=== PATIENT | male | born 1970 | race Caucasian/White ===

== ENCOUNTER 2022-06-11 08:39 | Inpatient (IN) ==
[2022-06-11] MEDS ORDERED: 0.9 % SODIUM CHLORIDE 2,000 ML IV ONE (08:50)
[2022-06-11] MEDS ORDERED: PIPERACILLIN SODIUM/TAZOBACTAM 3.375 GM in DEXTROSE 5% IN WATER 50 ML IV SCH (09:00)
[2022-06-11] MEDS ORDERED: VANCOMYCIN 2,000 MG in 0.9 % SODIUM CHLORIDE 500 ML IV SCH (09:00)
[2022-06-11 09:20] LABS: POC Calcium, Ionized 0.96 (1.16-1.32); POC Creatinine 1.1 (0.6-1.2); POC Potassium 3.7 (3.3-5.1)
[2022-06-11 09:54] LABS: Basophils % (Auto) 0.3 % (0.0-2.0); Eosinophils # (Auto) 0.01 K/mcL (0.00-0.70); Eosinophils % (Auto) 0 % (0.0-7.0); Hematocrit 40.7 % (40.1-51.0); Hemoglobin 13.8 g/dL (13.7-17.5); Lymphocytes # (Auto) 2.37 K/mcL (1.50-4.80); Lymphocytes % (Auto) 7.5 % (15.5-49.0); Mean Cell Volume 92.9 fL (80.0-100.0); Mean Corpuscular HGB Conc 33.9 g/dL (31.0-36.0); Mean Platelet Volume 9.5 fL (7.4-10.4); Monocytes # (Auto) 2.38 K/mcL (0.10-0.90); Monocytes % (Auto) 7.5 % (1.0-12.0); Neutrophils % (Auto) 81.7 % (38.0-78.0); Platelet Count 390 K/mcL (140-440); RBC 4.38 M/mcL (4.63-6.08); Red Cell Distribution Width 12.1 % (11.5-14.5); WBC 31.5 K/mcL (4.5-11.0)
[2022-06-11 10:04] LABS: Erythrocyte Sedimentation Rate > 120 mm/hr (0-20)
--- NOTE | 2022-06-11 10:05 | Emergency Department Note ---
HPI General Chief complaint: Skin/Abscess/Rash Stated complaint: rt lower leg pain Time Seen by Provider: 06/11/22 08:43 Source: patient Mode of arrival: ambulatory Limitations: no limitations History of Present Illness HPI Narrative: Narrative: 51-year-old male presents the emergency department complaining of right lower leg swelling and pain. Says also red. Says he feels fevers. Says been going on for about 2 or 3 days continuing to get worse and worse. He does not take any medications. Says he does not have any medical problems. Said that the pain is about a 6 out of 10 all to the right lower extremity. He has never had any history of blood clots. He says it is very warm to touch and painful to touch said he was working outside and could have got a wound to but does not know of any true wounds within the skin to cause this. Related Data Home Medications Medication Instructions Recorded Confirmed No Known Home Meds 06/11/22 06/11/22 Allergies Allergy/AdvReac Type Severity Reaction Status Date / Time No Known Drug Allergies Allergy Verified 06/11/22 08:44 Review of Systems ROS ROS Narrative: Narrative: All systems ED: reviewed and negative except as stated. PFSH Narrative Patient History Narrative: Narrative: Medical/Surgical/Family History All Active Problems (Updated 06/11/22 @ 10:05 by Jarred Oneal DO) Cellulitis (Acute) Sepsis (Acute) Social History Smoking Status: Never smoker Exam Narrative Narrative: Narrative: Vital signs noted General: Awake. Alert. No distress. Skin: Warm. Dry. No rash. HEENT: NCAT. PERRL. EOMI. No conjunctivitis. No nystagmus. No pharyngitis. Membranes moist. Neck: No PTP. Good ROM. No meningeal signs. No stridor. No thyromegaly. No JVD. Cardiovascular: RRR. No murmur. No rubs. No gallops. Respiratory: No respiratory distress. Breath sounds equal. Lungs clear. Gastrointestinal: Abdomen soft. No tenderness. No distention. Normal bowel sounds. No palpable organomegaly or masses. Back: No deformity. No CVAT. Musculoskeletal: The right lower leg is very erythematous swollen and edematous. There is no active wounds or pus draining does have small pustules seen be leaking clear fluids. He does have 2+ bilateral pedal pulses. Generalized pain throughout touching the entire right lower leg. This is all just below the knee. Otherwise musculoskeletal exam shows no tenderness. No swelling. No erythema. No edema. Good peripheral pulses x 4 Lymphatic: No palpable adenopathy. Neurological: No focal neurological deficits observed. CN 2-12 are intact. Good FTN. No pronator drift. General Limitations: no limitations Course Vital Signs Vital signs: Vital Signs Temperature 96.7 F L 06/11/22 08:42 Pulse Rate 130 H 06/11/22 08:42 Respiratory Rate 26 H 06/11/22 08:42 Blood Pressure 162/92 06/11/22 08:42 Pulse Oximetry (%) 97 06/11/22 08:42 Oxygen Delivery Method 06/11/22 08:42 Temperature 96.7 F L 06/11/22 08:42 Pulse Rate 97 H 06/11/22 10:20 Respiratory Rate 14 06/11/22 10:20 Blood Pressure 123/82 06/11/22 10:16 Pulse Oximetry (%) 100 06/11/22 10:20 Oxygen Delivery Method 06/11/22 08:42 MDM MDM Narrative Medical decision making narrative: Narrative: Patient has obvious cellulitis of the right lower leg. No signs of probably osteomyelitis as he has no history of diabetes he is otherwise healthy. Neck is just a severe cellulitis in the right lower extremity we will go ahead and treat him with broad-spectrum antibiotics including Zosyn as well as vancomycin to cover MRSA coverage. Patient will also have basic labs and have a sepsis work- up as patient does meet criteria for sepsis. He did receive 2 L of IV fluids based on ideal body weight he should have received 2.5 L but I went ahead and gave him a little less because I am worried due to his body habitus about fluid overload. So I do started with 2 L and will reevaluate. His lactate initially was mildly elevated at 2.2. His CMP is fairly normal except for a sodium of 128. He did have an elevated white blood cell count of 31,500. I did get blood cultures. Patient does meet criteria for severe sepsis. I do not think patient needs a CT at this time as I have very low suspicion for osteomyelitis do not think he needs ultrasounds again I have very low suspicion for DVT as I think this is all secondary to cellulitis due to him having tachycardia off-and-on fevers as well as the elevated white blood cell count. I am patient does need to be admitted for continued wound care as well as IV antibiotics. I spoke with the hospitalist Dr. Mathias who has agreed to admit the patient. Patient is admitted in fair condition. His vital signs have gotten better there is no signs of septic shock EKG done at 0903 interpreted by myself shows sinus tachycardia rate of 115, [place] interval 147, QRS 95, QTc 43. No acute ST changes no acute T wave changes no other signs of ischemia. No signs of hypertrophy, heart strain, heart block. No WPW/Brugada/HOCM. Impression normal sinus EKG with no ischemia Lab Data Result diagrams: 06/11/22 09:02 06/11/22 09:02 Labs: Lab Results 06/11/22 06/11/22 06/11/22 Range/Units 09:02 09:02 09:17 WBC 31.5 H* (4.5-11.0) K/mcL RBC 4.38 L (4.63-6.08) M/mcL Hgb 13.8 (13.7-17.5) g/dL Hct 40.7 (40.1-51.0) % POC Hct 44.0 (41-55) MCV 92.9 (80.0-100.0) fL MCH 31.5 (26.0-34.0) pg MCHC 33.9 (31.0-36.0) g/dL RDW 12.1 (11.5-14.5) % Plt Count 390 (140-440) K/mcL MPV 9.5 (7.4-10.4) fL Immature Gran % (Auto) 3.0 H (0.0-0.5) % Neut % (Auto) 81.7 H (38.0-78.0) % Lymph % (Auto) 7.5 L (15.5-49.0) % [place] % (Auto) 7.5 (1.0-12.0) % Eos % (Auto) 0 (0.0-7.0) % Baso % (Auto) 0.3 (0.0-2.0) % Lymph # (Auto) 2.37 (1.50-4.80) K/mcL [place] # (Auto) 2.38 H (0.10-0.90) K/mcL Eos # (Auto) 0.01 (0.00-0.70) K/mcL Baso # (Auto) 0.10 (0.00-0.30) K/mcL Immature Gran # 0.95 H (0.00-0.05) K/mcl Absolute Neutrophils 26.68 H (1.80-8.00) K/mcL ESR > 120 H (0-20) mm/hr POC VBG pH (7.32-7.42) POC VBG pCO2 at Temp (41-51) POC VBG pO2 (25-40) POC VBG HCO3 (24-28) POC VBG Total CO2 (25-29) POC Venous O2 Sat (40-70) POC VBG Base Excess (-2-2) VBG Lactic Acid (0.5-2) POC Sodium 128 L (133-145) Sodium 127 L (133-145) mmol/L POC Potassium 3.7 (3.3-5.1) Potassium 3.7 (3.3-5.1) mmol/L POC Chloride 95 L (96-108) Chloride 91 L (96-108) mmol/L Carbon Dioxide 20 L (22-30) mmol/L POC Total CO2 23.0 (22-30) Anion Gap 16.0 (8.0-16.0) POC BUN 13 (6-20) BUN 12 (6-20) mg/dL Creatinine 1.2 (0.7-1.2) mg/dL POC Creatinine 1.1 (0.6-1.2) GFR Calculation 68 Glucose 181 H (70-105) mg/dL POC Glucose 184 H (70-105) Calcium 8.5 L (8.6-10.4) mg/dL POC WB Ioniz Calcium 0.96 L (1.16-1.32) Total Bilirubin 1.4 H (0.1-1.0) mg/dL AST 56 H (<40) U/L ALT 57 H (<40) U/L Alkaline Phosphatase 113 (39-117) U/L C-Reactive Protein 34.50 H (0.03-0.80) mg/dL Total Protein 7.5 (5.9-8.4) gm/dL Albumin 2.8 L (3.2-5.2) gm/dL Globulin 4.7 H (2.2-3.7) gm/dL Albumin/Globulin Ratio 0.6 L (1.0-2.3) 06/11/22 Range/Units 09:17 WBC (4.5-11.0) K/mcL RBC (4.63-6.08) M/mcL Hgb (13.7-17.5) g/dL Hct (40.1-51.0) % POC Hct (41-55) MCV (80.0-100.0) fL MCH (26.0-34.0) pg MCHC (31.0-36.0) g/dL RDW (11.5-14.5) % Plt Count (140-440) K/mcL MPV (7.4-10.4) fL Immature Gran % (Auto) (0.0-0.5) % Neut % (Auto) (38.0-78.0) % Lymph % (Auto) (15.5-49.0) % [place] % (Auto) (1.0-12.0) % Eos % (Auto) (0.0-7.0) % Baso % (Auto) (0.0-2.0) % Lymph # (Auto) (1.50-4.80) K/mcL [place] # (Auto) (0.10-0.90) K/mcL Eos # (Auto) (0.00-0.70) K/mcL Baso # (Auto) (0.00-0.30) K/mcL Immature Gran # (0.00-0.05) K/mcl Absolute Neutrophils (1.80-8.00) K/mcL ESR (0-20) mm/hr POC VBG pH 7.52 H (7.32-7.42) POC VBG pCO2 at Temp 25.3 L (41-51) POC VBG pO2 83 H (25-40) POC VBG HCO3 20.4 L (24-28) POC VBG Total CO2 21.0 L (25-29) POC Venous O2 Sat 97.0 H (40-70) POC VBG Base Excess -3.0 L (-2-2) VBG Lactic Acid 2.2 H (0.5-2) POC Sodium (133-145) Sodium (133-145) mmol/L POC Potassium (3.3-5.1) Potassium (3.3-5.1) mmol/L POC Chloride (96-108) Chloride (96-108) mmol/L Carbon Dioxide (22-30) mmol/L POC Total CO2 (22-30) Anion Gap (8.0-16.0) POC BUN (6-20) BUN (6-20) mg/dL Creatinine (0.7-1.2) mg/dL POC Creatinine (0.6-1.2) GFR Calculation Glucose (70-105) mg/dL POC Glucose (70-105) Calcium (8.6-10.4) mg/dL POC WB Ioniz Calcium (1.16-1.32) Total Bilirubin (0.1-1.0) mg/dL AST (<40) U/L ALT (<40) U/L Alkaline Phosphatase (39-117) U/L C-Reactive Protein (0.03-0.80) mg/dL Total Protein (5.9-8.4) gm/dL Albumin (3.2-5.2) gm/dL Globulin (2.2-3.7) gm/dL Albumin/Globulin Ratio (1.0-2.3) Discharge Plan Patient/Caregiver Discharge Instructions Pt seen by FLOOR LAYER TILE/PA only: No Clinical Impression: Cellulitis Qualifiers: Site of cellulitis: extremity Site of cellulitis of extremity: lower extremity Laterality: right Qualified Code(s): L03.115 - Cellulitis of right lower limb Sepsis Qualifiers: Sepsis type: sepsis due to unspecified organism Sepsis acute organ dysfunction status: without acute organ dysfunction Qualified Code(s): A41.9 - Sepsis, unspecified organism Patient Disposition: Xfer As Outpt/Obs ([facility]) Follow up with: No,PCP [Primary Care Provider] - Prescriptions: No Action No Known Home Meds
[2022-06-11 10:10] LABS: ALT/SGPT 57 U/L (<40); AST/SGOT 56 U/L (<40); Albumin 2.8 gm/dL (3.2-5.2); Albumin/Globulin Ratio 0.6 (1.0-2.3); Alkaline Phosphatase 113 U/L (39-117); Bilirubin,Total 1.4 mg/dL (0.1-1.0); Blood Urea Nitrogen 12 mg/dL (6-20); Calcium 8.5 mg/dL (8.6-10.4); Carbon Dioxide 20 mmol/L (22-30); Chloride 91 mmol/L (96-108); Globulin 4.7 gm/dL (2.2-3.7); Glomerular Filtration Rate 68; Glucose 181 mg/dL (70-105)
[2022-06-11] MEDS ORDERED: morphine 4 MG/ML VIAL IV ONE (10:16)
--- NOTE | 2022-06-11 10:48 | Internal Med History&Physical ---
HPI History of Present Illness Patient information: Note initiated : 06/11/22 at 10:45 am Service Date, if different from initiated Date: [] Patient: Samir Montes 51 y/o M admitted on for rt lower leg pain. Chief Complaint: [right lower leg swelling and pain ] Chief complaint: right lower leg swelling and pain History of present illness: Mr. Montes is a 51 year old M negative past medical history, presenting with 3- day history of the right lower leg swelling redness and pain. No prior similar history. 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 Over the past 3 days, he has gradually worsening right lower leg redness, swelling, and pain. The pain is being described as 8 out of 10 in severity, shooting in nature, constant. It localized in his right lower leg. It is partially relieved by rest and exacerbated with any movement. He denies any fever chills or diaphoresis. He denies any general body weakness. He has nausea but no vomiting. He has poor appetite over the past 3 days. Vital signs at ED presentation significant for tachycardia and tachypnea with heart rate in the rate of breathing up to the 130s and mid 20s, respectively. Afebrile. Labs significant with leukocytosis WBC 31.5. Lactic acid 2.2. Serum sodium 128. Glucose 181. Admission request was called for right leg cellulitis with associated sepsis. Constitutional Constitutional: Absent chills, excessive sweating, fatigue, fever(s) or weakness EENT Eyes: Absent blurry vision, change in vision, loss of vision or other visual disturbances Ears: Absent decreased hearing or tinnitus Nose, mouth and throat: Absent abnormal hearing, dry mouth, headache(s), nasal congestion or sore throat Cardiovascular Cardiovascular: Absent chest pain, chest pain at rest, edema, irregular heart rhythm or palpatations Respiratory Respiratory: Absent cough, dyspnea or wheezing Gastrointestinal Gastrointestinal: Present nausea; Absent abdominal pain, constipation, diarrhea or vomiting Musculoskeletal Musculoskeletal: Absent back pain, deformity, limited range of motion, muscle cramps, muscle weakness or numbness Additional comments: erythema, swelling, pain of the right lower leg Integumentary Integumentary: Present erythema, lesions and swelling; Absent rash or wounds Additional comments: erythema, swelling, pain of the right lower leg Neurological Neurological: Absent focal weakness, headache(s) or numbness Psychiatric Psychiatric: Absent anxiety, depression or hallucinations PFSH PFSH All Active Problems (Updated 06/11/22 @ 10:51 by Finn Mathias MD) Hyponatremia (Acute) Hyperglycemia (Acute) Cellulitis (Acute) Sepsis (Acute) MEDS/ALLERGIES Home Medications and Allergies Home Medications Medication Instructions Recorded Confirmed Type No Known Home Meds 06/11/22 06/11/22 History Allergies Allergy/AdvReac Type Severity Reaction Status Date / Time No Known Drug Allergies Allergy Verified 06/11/22 08:44 EXAM Constitutional Vitals: Temp Pulse Resp BP Pulse Ox O2 Del Method 35.9 C L 97 H 14 123/82 100 06/11/22 08:42 06/11/22 10:20 06/11/22 10:20 06/11/22 10:16 06/11/22 10:20 06/11/22 08:42 General appearance: cooperative and no acute distress Head Head exam: Present atraumatic and normocephalic Eye Eye exam: Present EOMI and PERRL ENT ENT exam: Present mucous membranes moist, normal exam and normal external ear exam Neck Neck exam: Present normal inspection; Absent lymphadenopathy, tenderness or thyromegaly Respiratory Respiratory exam: Absent accessory muscle use, respiratory distress or wheezes Cardiovascular Cardiovascular exam: Present normal rate and rhythm; Absent JVD GI/Abdominal GI/Abdominal exam: Present normal bowel sounds and soft; Absent organomegaly or tenderness Rectal Rectal exam: Present deferred Extremities Exam Extremities exam: Present full ROM, normal capillary refill and tenderness; Absent normal inspection Additional comments: Erythema, swelling, warmth, tenderness to palpation Neurological Exam Neurological exam: Present alert, CN II-XII intact and oriented X3; Absent motor sensory deficit Psychiatric Psychiatric exam: Present normal affect and normal mood; Absent anxious or depressed Skin Skin exam: Present dry, erythema, intact and warm Additional comments: Erythema, swelling, warmth, tenderness to palpation DATA Data Completed and Pending Labs: Labs from last 24 hours 06/11/22 06/11/22 06/11/22 09:17 09:17 09:02 WBC RBC Hgb Hct POC Hct 44.0 MCV MCH MCHC RDW Plt Count MPV Immature Gran % (Auto) Neut % (Auto) Lymph % (Auto) [place] % (Auto) Eos % (Auto) Baso % (Auto) Lymph # (Auto) [place] # (Auto) Eos # (Auto) Baso # (Auto) Immature Gran # Absolute Neutrophils ESR POC VBG pH 7.52 H POC VBG pCO2 at Temp 25.3 L POC VBG pO2 83 H POC VBG HCO3 20.4 L POC VBG Total CO2 21.0 L POC Venous O2 Sat 97.0 H POC VBG Base Excess -3.0 L VBG Lactic Acid 2.2 H POC Sodium 128 L Sodium 127 L POC Potassium 3.7 Potassium 3.7 POC Chloride 95 L Chloride 91 L Carbon Dioxide 20 L POC Total CO2 23.0 Anion Gap 16.0 POC BUN 13 BUN 12 Creatinine 1.2 POC Creatinine 1.1 GFR Calculation 68 Glucose 181 H POC Glucose 184 H Calcium 8.5 L POC WB Ioniz Calcium 0.96 L Total Bilirubin 1.4 H AST 56 H ALT 57 H Alkaline Phosphatase 113 C-Reactive Protein 34.50 H Total Protein 7.5 Albumin 2.8 L Globulin 4.7 H Albumin/Globulin Ratio 0.6 L 06/11/22 09:02 WBC 31.5 H* RBC 4.38 L Hgb 13.8 Hct 40.7 POC Hct MCV 92.9 MCH 31.5 MCHC 33.9 RDW 12.1 Plt Count 390 MPV 9.5 Immature Gran % (Auto) 3.0 H Neut % (Auto) 81.7 H Lymph % (Auto) 7.5 L [place] % (Auto) 7.5 Eos % (Auto) 0 Baso % (Auto) 0.3 Lymph # (Auto) 2.37 [place] # (Auto) 2.38 H Eos # (Auto) 0.01 Baso # (Auto) 0.10 Immature Gran # 0.95 H Absolute Neutrophils 26.68 H ESR > 120 H POC VBG pH POC VBG pCO2 at Temp POC VBG pO2 POC VBG HCO3 POC VBG Total CO2 POC Venous O2 Sat POC VBG Base Excess VBG Lactic Acid POC Sodium Sodium POC Potassium Potassium POC Chloride Chloride Carbon Dioxide POC Total CO2 Anion Gap POC BUN BUN Creatinine POC Creatinine GFR Calculation Glucose POC Glucose Calcium POC WB Ioniz Calcium Total Bilirubin AST ALT Alkaline Phosphatase C-Reactive Protein Total Protein Albumin Globulin Albumin/Globulin Ratio A/P Assessment and plan (1) Cellulitis: Status: Acute Qualifiers: Laterality: right Site of cellulitis: extremity Site of cellulitis of extremity: lower extremity Qualified Code(s): L03.115 - Cellulitis of right lower limb (2) Sepsis: Status: Acute Qualifiers: Sepsis acute organ dysfunction status: without acute organ dysfunction Sepsis type: sepsis due to unspecified organism Qualified Code(s): A41.9 - Sepsis, unspecified organism (3) Hyperglycemia: Status: Acute (4) Hyponatremia: Status: Acute Narrative A/P Narrative: Assessment and Plans: 1. Right lower leg cellulitis with sepsis: Inpatient med surg Serial lactic acid Procalcitonin Blood culture cbc w/ auto diff in the morning to trend WBC Vancomycin Zosyn Tylenol Oxycodone Morphine IV s/p IV fluid bolus in the ED, to be followed by NS@100cc/hr 2. Hyperglycemia: DDx: sepsis response, undiagnosed diabetes HgA1c SSI AC HS Accu Chek AC HS Hypoglycemia protocol Regular diet Treat the infection, see #1 3. Hypoglycemia: s/p IV fluid bolus in the ED, to be followed by NS@100cc/hr BMP in the morning to trend serum sodium level GI ppx: not currently indicated DVT ppx: Lovenox Code status: Full Prognosis: guarded Disposition: inpatient med surg Time Spent With Patient Time: Total time spent is greater than 50% in coordination of care (as documented) at patient's floor/unit and/or counseling patient: Total time spent with greater than 50% in coordination of care (as documented) at patient's floor/unit and/or counseling patient:: 50 - 70 minutes
[2022-06-11] MEDS ORDERED: VANCOMYCIN PER PHARMACY IV SCH (11:31)
[2022-06-11] MEDS ORDERED: DEXTROSE 50% 50 ML VIAL IV PRN (11:31)
[2022-06-11] MEDS ORDERED: DEXTROSE 31 GM ORAL.SUSP PO PRN (11:31)
[2022-06-11] MEDS: 0.9 % SODIUM CHLORIDE 1,000 ML IV SCH ×2 (11:37→16:08)
[2022-06-11] MEDS: INSULIN LISPRO 1 UNIT/0.01 ML UNIT SQ SCH ×3 (12:46→22:28)
[2022-06-11 13:04] LABS: Estimated Average Glucose(eAG) 134 mg/dL; Hemoglobin A1C 6.3 % Hgb (4.0-6.0)
--- NOTE | 2022-06-11 13:08 | EKG ---
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
[2022-06-11] MEDS: PIPERACILLIN SODIUM/TAZOBACTAM 3.375 GM in DEXTROSE 5% IN WATER 50 ML IV SCH ×2 (15:29→17:26)
[2022-06-11] MEDS: ACETAMINOPHEN 325 MG TABLET PO PRN (16:28)
[2022-06-11] MEDS: 0.9 % SODIUM CHLORIDE 10 ML SYRINGE IV SCH (16:47)
[2022-06-11] MEDS: oxyCODONE HCL 5 MG TABLET PO PRN (17:33)
[2022-06-11] MEDS: SENNOSIDES 1 TABLET PO SCH (21:56)
[2022-06-11] MEDS: DOCUSATE SODIUM 100 MG CAPSULE PO SCH (21:56)
[2022-06-11] MEDS: VANCOMYCIN 1,500 MG in 0.9 % SODIUM CHLORIDE 500 ML IV SCH (21:56)
[2022-06-12] MEDS: PIPERACILLIN SODIUM/TAZOBACTAM 3.375 GM in DEXTROSE 5% IN WATER 50 ML IV SCH ×4 (00:11→20:50)
[2022-06-12] MEDS: 0.9 % SODIUM CHLORIDE 10 ML SYRINGE IV SCH ×4 (06:22→20:54)
[2022-06-12] MEDS: oxyCODONE HCL 5 MG TABLET PO PRN ×2 (06:37→12:59)
[2022-06-12 06:57] LABS: Basophils # (Auto) 0.08 K/mcL (0.00-0.30); Basophils % (Auto) 0.3 % (0.0-2.0); Eosinophils # (Auto) 0.02 K/mcL (0.00-0.70); Eosinophils % (Auto) 0.1 % (0.0-7.0); Hematocrit 36.1 % (40.1-51.0); Lymphocytes # (Auto) 1.76 K/mcL (1.50-4.80); Lymphocytes % (Auto) 7.6 % (15.5-49.0); Mean Cell Volume 95.3 fL (80.0-100.0); Mean Corpuscular HGB Conc 33.2 g/dL (31.0-36.0); Mean Platelet Volume 9.2 fL (7.4-10.4); Monocytes # (Auto) 2.04 K/mcL (0.10-0.90); Monocytes % (Auto) 8.8 % (1.0-12.0); Neutrophils % (Auto) 81.4 % (38.0-78.0); Platelet Count 377 K/mcL (140-440); RBC 3.79 M/mcL (4.63-6.08); Red Cell Distribution Width 12.7 % (11.5-14.5); WBC 23.3 K/mcL (4.5-11.0)
[2022-06-12 07:22] LABS: Blood Urea Nitrogen 13 mg/dL (6-20); Calcium 7.9 mg/dL (8.6-10.4); Carbon Dioxide 26 mmol/L (22-30); Chloride 98 mmol/L (96-108); Glomerular Filtration Rate 85; Glucose 132 mg/dL (70-105)
[2022-06-12] MEDS: INSULIN LISPRO 1 UNIT/0.01 ML UNIT SQ SCH ×4 (07:34→20:54)
[2022-06-12] MEDS: 0.9 % SODIUM CHLORIDE 1,000 ML IV SCH ×3 (09:02→19:35)
[2022-06-12] MEDS: DOCUSATE SODIUM 100 MG CAPSULE PO SCH ×2 (09:03→20:54)
[2022-06-12] MEDS: ENOXAPARIN 40 MG/0.4 ML SYRINGE SQ SCH (09:03)
[2022-06-12] MEDS: VANCOMYCIN 1,500 MG in 0.9 % SODIUM CHLORIDE 500 ML IV SCH (10:54)
--- NOTE | 2022-06-12 12:45 | Internal Med Progress Note ---
SUBJECTIVE Subjective Patient information: Note initiated : 06/12/22 at 12:43 pm Service Date, if different from initiated Date: [] Patient: Samir Montes 51 y/o M admitted on 06/11/22 for rt lower leg pain. Chief Complaint: [Right lower extremity swelling and erythema] Principal diagnosis: Right lower extremity purulent cellulitis Interval history: The patient states that he is feeling much better. Constitutional Vitals: Vital Signs Temp Pulse Resp BP Pulse Ox O2 Del Method 98 F 95 H 16 95/53 98 06/12/22 07:33 06/12/22 07:33 06/12/22 07:33 06/12/22 07:33 06/12/22 07:33 06/12/22 07:33 Period Temp Pulse Resp BP Sys/Wang Pulse Ox O2 Del Method O2 Flow Rate Last 24 Hr 97.7 F-102 F 92-101 16-24 95-155/53-88 96-98 Room Air-Room Air Intake and Output 06/11/22 06/12/22 06/12/22 21:59 05:59 13:59 Intake Total 792 2250 50 Output Total 1225 650 Balance 792 1025 -600 Weight 138.3 kg Intake & Output: Intake & Output 06/11/22 06/12/22 06/12/22 21:59 05:59 13:59 Intake Total 792 2250 50 Output Total 1225 650 Balance 792 1025 -600 Weight 138.3 kg Intake: IV 552 1550 50 Sodium Chloride 0.9% 1,000 ml @ 452 1000 100 mls/hr IV .Q10H [facility] Rx#: [id number] Zosyn 3.375 gm In Dextrose 5% 100 50 50 in Water 50 ml @ 100 mls/hr IV Q6H [facility] Rx#:[id number] Vancomycin 1,500 mg In Sodium 500 Chloride 0.9% 500 ml @ 333.3 mls/hr IV Q12H [facility]N Rx#: [id number] Oral 240 700 Output: Void Amount 1225 650 Other: Meal Dinner Percent of Meal Consumed 75% Feeding Ability Independent Urine Appearance Clear Clear Urine Color Bright Yellow Dark Yellow Urine Odor Normal # Voids 1 Head Head exam: Present atraumatic and normal inspection Eye Eye exam: Present normal appearance ENT ENT exam: Present mucous membranes moist, normal exam and normal external ear exam Neck Neck exam: Present normal inspection Respiratory Respiratory exam: Present normal respiratory exam Cardiovascular Cardiovascular exam: Present normal rate and rhythm GI/Abdominal GI/Abdominal exam: Present normal bowel sounds Back Exam Back exam: Present normal inspection Neurological Exam Neurological exam: Present alert and oriented X3 Skin Skin exam: Present erythema, intact and warm OBJ DATA Labs CBC & Chem 7: 06/12/22 05:43 06/12/22 05:43 Labs: Abnormal Lab Results 06/12/22 06/12/22 06/11/22 05:43 05:43 11:51 WBC 23.3 H RBC 3.79 L Hgb 12.0 L Hct 36.1 L Immature Gran % (Auto) 1.8 H Neut % (Auto) 81.4 H Lymph % (Auto) 7.6 L [place] # (Auto) 2.04 H Immature Gran # 0.42 H Absolute Neutrophils 19.40 H ESR POC VBG pH POC VBG pCO2 at Temp POC VBG pO2 POC VBG HCO3 POC VBG Total CO2 POC Venous O2 Sat POC VBG Base Excess VBG Lactic Acid POC Sodium Sodium POC Chloride Chloride Carbon Dioxide Glucose 132 H POC Glucose Hemoglobin A1c Calcium 7.9 L POC WB Ioniz Calcium Total Bilirubin AST ALT C-Reactive Protein Albumin Globulin Albumin/Globulin Ratio Procalcitonin 2.76 H 06/11/22 06/11/22 06/11/22 11:51 09:17 09:17 WBC RBC Hgb Hct Immature Gran % (Auto) Neut % (Auto) Lymph % (Auto) [place] # (Auto) Immature Gran # Absolute Neutrophils ESR POC VBG pH 7.52 H POC VBG pCO2 at Temp 25.3 L POC VBG pO2 83 H POC VBG HCO3 20.4 L POC VBG Total CO2 21.0 L POC Venous O2 Sat 97.0 H POC VBG Base Excess -3.0 L VBG Lactic Acid 2.2 H POC Sodium 128 L Sodium POC Chloride 95 L Chloride Carbon Dioxide Glucose POC Glucose 184 H Hemoglobin A1c 6.3 H Calcium POC WB Ioniz Calcium 0.96 L Total Bilirubin AST ALT C-Reactive Protein Albumin Globulin Albumin/Globulin Ratio Procalcitonin 06/11/22 06/11/22 09:02 09:02 WBC 31.5 H* RBC 4.38 L Hgb Hct Immature Gran % (Auto) 3.0 H Neut % (Auto) 81.7 H Lymph % (Auto) 7.5 L [place] # (Auto) 2.38 H Immature Gran # 0.95 H Absolute Neutrophils 26.68 H ESR > 120 H POC VBG pH POC VBG pCO2 at Temp POC VBG pO2 POC VBG HCO3 POC VBG Total CO2 POC Venous O2 Sat POC VBG Base Excess VBG Lactic Acid POC Sodium Sodium 127 L POC Chloride Chloride 91 L Carbon Dioxide 20 L Glucose 181 H POC Glucose Hemoglobin A1c Calcium 8.5 L POC WB Ioniz Calcium Total Bilirubin 1.4 H AST 56 H ALT 57 H C-Reactive Protein 34.50 H Albumin 2.8 L Globulin 4.7 H Albumin/Globulin Ratio 0.6 L Procalcitonin Meds: Medications Acetaminophen (Acetaminophen 325 Mg Tablet) 650 mg PO Q6HP PRN; Protocol PRN Reason: Per Pain Protocol/Fever > 101 Last Admin: 06/11/22 16:28 Dose: 650 mg Dextrose (Dextrose 50% 50 Ml Vial) 0 ml IV UD PRN PRN Reason: Per Sliding Scale Diagnostic Test (Pha) (Accu-Chek 1 Each Strip) 1 each FS ACHS [facility] Last Admin: 06/12/22 11:46 Dose: 1 each Docusate Sodium (Docusate Sodium 100 Mg Capsule) 100 mg PO BID [facility] Last Admin: 06/12/22 09:03 Dose: 100 mg Enoxaparin Sodium (Enoxaparin 40 Mg/0.4 Ml Syringe) 40 mg SQ DAILY [facility] Last Admin: 06/12/22 09:03 Dose: 40 mg Glucose (Dextrose 31 Gm Oral.Susp) 15 gm PO PRN PRN PRN Reason: Hypoglycemia Sodium Chloride (Sodium Chloride 0.9%) 1,000 mls @ 100 mls/hr IV .Q10H [facility] Last Admin: 06/12/22 09:03 Dose: 100 mls/hr Piperacillin Sod/Tazobactam (Sod 3.375 gm/ Dextrose) 50 mls @ 100 mls/hr IV Q6H [facility]; Protocol Last Infusion: 06/12/22 06:55 Dose: Infused Insulin Human Lispro (Insulin Lispro 1 Unit/0.01 Ml Unit) 0 unit SQ ACHS [facility]; P rotocol Last Admin: 06/12/22 11:46 Dose: Not Given Morphine Sulfate (Morphine 4 Mg/Ml Vial) 4 mg IV Q4HP PRN; Protocol PRN Reason: Per Pain Protocol Ondansetron HCl (Ondansetron 4 Mg/2 Ml Vial) 4 mg IV Q6HP PRN PRN Reason: Nausea And Vomiting Oxycodone HCl (Oxycodone Hcl 5 Mg Tablet) 5 mg PO Q4HP PRN; Protocol PRN Reason: Per Pain Protocol Last Admin: 06/12/22 06:37 Dose: 5 mg Senna (Sennosides 1 Tablet) 2 tab PO HS [facility] Last Admin: 06/11/22 21:56 Dose: 2 tab Sodium Chloride (0.9 % Sodium Chloride 10 Ml Syringe) 10 ml IV Q8 [facility] Last Admin: 06/12/22 06:22 Dose: Not Given A/P Assessment and plan (1) Cellulitis: Status: Acute Qualifiers: Laterality: right Site of cellulitis: extremity Site of cellulitis of extremity: lower extremity Qualified Code(s): L03.115 - Cellulitis of right lower limb (2) Sepsis: Status: Acute Qualifiers: Sepsis acute organ dysfunction status: without acute organ dysfunction Sepsis type: sepsis due to unspecified organism Qualified Code(s): A41.9 - Sepsis, unspecified organism (3) Hyperglycemia: Status: Acute (4) Hyponatremia: Status: Acute Narrative A/P Narrative: Assessment and Plans: 1. Right lower leg cellulitis with sepsis: -The patient's MRSA screen was negative and we will discontinue vancomycin. He remains afebrile and his white blood cell count is come down from 31.5 and is now 23.3. Continue wound care. 2. Hyperglycemia: DDx: sepsis response, undiagnosed diabetes HgA1c-> 6.3% discussed lifestyle modifications SSI AC HS Accu Chek [facility] Hypoglycemia protocol Regular diet Treat the infection, see #1 3. Hypoglycemia: s/p IV fluid bolus in the ED, to be followed by NS@100cc/hr BMP in the morning to trend serum sodium level GI ppx: not currently indicated DVT ppx: Lovenox Code status: Full Prognosis: guarded Disposition: inpatient med surg Time Spent With Patient Time: Total time spent is greater than 50% in coordination of care (as documented) at patient's floor/unit and/or counseling patient: Total time spent with greater than 50% in coordination of care (as documented) at patient's floor/unit and/or counseling patient:: 25 - 35 minutes QUALITY VTE Deep Vein Thrombosis/Pulmonary Embolism Present on Admission: No
[2022-06-12] MEDS: ACETAMINOPHEN 325 MG TABLET PO PRN (13:07)
[2022-06-12] MEDS: morphine 4 MG/ML VIAL IV PRN (14:57)
[2022-06-12] MEDS: SENNOSIDES 1 TABLET PO SCH (20:54)
[2022-06-13] MEDS: 0.9 % SODIUM CHLORIDE 1,000 ML IV SCH ×3 (00:23→14:49)
[2022-06-13] MEDS: oxyCODONE HCL 5 MG TABLET PO PRN ×2 (00:26→06:47)
[2022-06-13] MEDS: PIPERACILLIN SODIUM/TAZOBACTAM 3.375 GM in DEXTROSE 5% IN WATER 50 ML IV SCH ×5 (01:05→23:37)
[2022-06-13] MEDS: morphine 4 MG/ML VIAL IV PRN ×3 (01:08→14:05)
[2022-06-13] MEDS: 0.9 % SODIUM CHLORIDE 10 ML SYRINGE IV SCH ×3 (06:29→21:41)
[2022-06-13] MEDS: INSULIN LISPRO 1 UNIT/0.01 ML UNIT SQ SCH ×4 (07:25→21:17)
[2022-06-13] MEDS: DOCUSATE SODIUM 100 MG CAPSULE PO SCH ×2 (08:30→21:04)
[2022-06-13] MEDS: ENOXAPARIN 40 MG/0.4 ML SYRINGE SQ SCH (09:53)
--- NOTE | 2022-06-13 11:23 | Internal Med Progress Note ---
SUBJECTIVE Subjective Patient information: Note initiated : 06/13/22 at 11:22 am Service Date, if different from initiated Date: [] Patient: Samir Montes 51 y/o M admitted on 06/11/22 for rt lower leg pain. Chief Complaint: [] Principal diagnosis: Right lower extremity purulent cellulitis Interval history: The patient was resting comfortably in bed. He had no active complaints. He states that he has been unable to walk at this point. We discussed ongoing wound care. Constitutional Vitals: Vital Signs Temp Pulse Resp BP Pulse Ox O2 Del Method 98.2 F 91 H 18 115/66 98 06/13/22 07:41 06/13/22 07:41 06/13/22 07:41 06/13/22 07:41 06/13/22 07:41 06/13/22 07:41 Period Temp Pulse Resp BP Sys/Wang Pulse Ox O2 Del Method O2 Flow Rate Last 24 Hr 97.6 F-102.2 F 56-105 - 112-151/66-87 95-98 Room Air-Room Air Intake and Output 06/12/22 06/13/22 06/13/22 21:59 05:59 13:59 Intake Total 1340 850 50 Output Total 450 400 580 Balance 890 450 -530 Weight 138.436 kg Intake & Output: Intake & Output 06/12/22 06/13/22 06/13/22 21:59 05:59 13:59 Intake Total 1340 850 50 Output Total 450 400 580 Balance 890 450 -530 Weight 138.436 kg Intake: IV 1100 50 50 Sodium Chloride 0.9% 1,000 ml @ 1000 100 mls/hr IV .Q10H [facility] Rx#: [id number] Zosyn 3.375 gm In Dextrose 5% 100 50 50 in Water 50 ml @ 100 mls/hr IV Q6H [facility] Rx#:[id number] Oral 240 800 Output: Void Amount 450 400 580 Other: Meal Dinner Percent of Meal Consumed 75% Feeding Ability Independent Urine Appearance Clear Clear Urine Color Dark Yellow Dark Yellow Dark Yellow Head Head exam: Present atraumatic and normal inspection Eye Eye exam: Present normal appearance ENT ENT exam: Present mucous membranes moist, normal exam and normal external ear exam Neck Neck exam: Present normal inspection Respiratory Respiratory exam: Present normal respiratory exam Cardiovascular Cardiovascular exam: Present normal rate and rhythm GI/Abdominal GI/Abdominal exam: Present normal bowel sounds Back Exam Back exam: Present normal inspection Neurological Exam Neurological exam: Present alert and oriented X3 Skin Skin exam: Present erythema, intact and warm OBJ DATA Labs CBC & Chem 7: 06/12/22 05:43 06/12/22 05:43 Labs: Abnormal Lab Results 06/12/22 06/12/22 06/11/22 05:43 05:43 11:51 WBC 23.3 H RBC 3.79 L Hgb 12.0 L Hct 36.1 L Immature Gran % (Auto) 1.8 H Neut % (Auto) 81.4 H Lymph % (Auto) 7.6 L [place] # (Auto) 2.04 H Immature Gran # 0.42 H Absolute Neutrophils 19.40 H ESR POC VBG pH POC VBG pCO2 at Temp POC VBG pO2 POC VBG HCO3 POC VBG Total CO2 POC Venous O2 Sat POC VBG Base Excess VBG Lactic Acid POC Sodium Sodium POC Chloride Chloride Carbon Dioxide Glucose 132 H POC Glucose Hemoglobin A1c Calcium 7.9 L POC WB Ioniz Calcium Total Bilirubin AST ALT C-Reactive Protein Albumin Globulin Albumin/Globulin Ratio Procalcitonin 2.76 H 06/11/22 06/11/22 06/11/22 11:51 09:17 09:17 WBC RBC Hgb Hct Immature Gran % (Auto) Neut % (Auto) Lymph % (Auto) [place] # (Auto) Immature Gran # Absolute Neutrophils ESR POC VBG pH 7.52 H POC VBG pCO2 at Temp 25.3 L POC VBG pO2 83 H POC VBG HCO3 20.4 L POC VBG Total CO2 21.0 L POC Venous O2 Sat 97.0 H POC VBG Base Excess -3.0 L VBG Lactic Acid 2.2 H POC Sodium 128 L Sodium POC Chloride 95 L Chloride Carbon Dioxide Glucose POC Glucose 184 H Hemoglobin A1c 6.3 H Calcium POC WB Ioniz Calcium 0.96 L Total Bilirubin AST ALT C-Reactive Protein Albumin Globulin Albumin/Globulin Ratio Procalcitonin 06/11/22 06/11/22 09:02 09:02 WBC 31.5 H* RBC 4.38 L Hgb Hct Immature Gran % (Auto) 3.0 H Neut % (Auto) 81.7 H Lymph % (Auto) 7.5 L [place] # (Auto) 2.38 H Immature Gran # 0.95 H Absolute Neutrophils 26.68 H ESR > 120 H POC VBG pH POC VBG pCO2 at Temp POC VBG pO2 POC VBG HCO3 POC VBG Total CO2 POC Venous O2 Sat POC VBG Base Excess VBG Lactic Acid POC Sodium Sodium 127 L POC Chloride Chloride 91 L Carbon Dioxide 20 L Glucose 181 H POC Glucose Hemoglobin A1c Calcium 8.5 L POC WB Ioniz Calcium Total Bilirubin 1.4 H AST 56 H ALT 57 H C-Reactive Protein 34.50 H Albumin 2.8 L Globulin 4.7 H Albumin/Globulin Ratio 0.6 L Procalcitonin Meds: Medications Acetaminophen (Acetaminophen 325 Mg Tablet) 650 mg PO Q6HP PRN; Protocol PRN Reason: Per Pain Protocol/Fever > 101 Last Admin: 06/12/22 13:07 Dose: 650 mg Dextrose (Dextrose 50% 50 Ml Vial) 0 ml IV UD PRN PRN Reason: Per Sliding Scale Diagnostic Test (Pha) (Accu-Chek 1 Each Strip) 1 each FS ACHS [facility] Last Admin: 06/13/22 07:24 Dose: 1 each Docusate Sodium (Docusate Sodium 100 Mg Capsule) 100 mg PO BID [facility] Last Admin: 06/13/22 08:30 Dose: Not Given Enoxaparin Sodium (Enoxaparin 40 Mg/0.4 Ml Syringe) 40 mg SQ DAILY [facility] Last Admin: 06/13/22 09:53 Dose: 40 mg Glucose (Dextrose 31 Gm Oral.Susp) 15 gm PO PRN PRN PRN Reason: Hypoglycemia Hydromorphone HCl (Hydromorphone 1 Mg/Ml Syringe) 0.75 mg IV Q1HP PRN; Protocol PRN Reason: Per Pain Protocol Sodium Chloride (Sodium Chloride 0.9%) 1,000 mls @ 100 mls/hr IV .Q10H [facility] Last Admin: 06/13/22 07:25 Dose: Not Given Piperacillin Sod/Tazobactam (Sod 3.375 gm/ Dextrose) 50 mls @ 100 mls/hr IV Q6H [facility]; Protocol Last Infusion: 06/13/22 07:25 Dose: Infused Insulin Human Lispro (Insulin Lispro 1 Unit/0.01 Ml Unit) 0 unit SQ ACHS [facility]; Protocol Last Admin: 06/13/22 07:25 Dose: Not Given Morphine Sulfate (Morphine 4 Mg/Ml Vial) 4 mg IV Q4HP PRN; Protocol PRN Reason: Per Pain Protocol Last Admin: 06/13/22 09:53 Dose: 4 mg Ondansetron HCl (Ondansetron 4 Mg/2 Ml Vial) 4 mg IV Q6HP PRN PRN Reason: Nausea And Vomiting Oxycodone HCl (Oxycodone Hcl 5 Mg Tablet) 5 mg PO Q4HP PRN; Protocol PRN Reason: Per Pain Protocol Last Admin: 06/13/22 06:47 Dose: 5 mg Senna (Sennosides 1 Tablet) 2 tab PO HS [facility] Last Admin: 06/12/22 20:54 Dose: Not Given Sodium Chloride (0.9 % Sodium Chloride 10 Ml Syringe) 10 ml IV Q8 [facility] Last Admin: 06/13/22 06:29 Dose: Not Given A/P Assessment and plan (1) Cellulitis: Status: Acute Qualifiers: Laterality: right Site of cellulitis: extremity Site of cellulitis of extremity: lower extremity Qualified Code(s): L03.115 - Cellulitis of right lower limb (2) Sepsis: Status: Acute Qualifiers: Sepsis acute organ dysfunction status: without acute organ dysfunction Sepsis type: sepsis due to unspecified organism Qualified Code(s): A41.9 - Sepsis, unspecified organism (3) Hyperglycemia: Status: Acute (4) Hyponatremia: Status: Acute Narrative A/P Narrative: Assessment and Plans: 1. Right lower leg cellulitis with sepsis: -The patient's MRSA screen was negative and we will discontinue vancomycin. He remains afebrile and his white blood cell count is come down from 31.5 and is now 23.3. Continue wound care. -Repeat CBC is pending this morning. Continue Zosyn and have added IV Dilaudid prior to wound care for dressing changes. 2. Hyperglycemia: DDx: sepsis response, undiagnosed diabetes HgA1c-> 6.3% discussed lifestyle modifications SSI AC HS Accu Chek AC HS Hypoglycemia protocol Regular diet Treat the infection, see #1 3. Hypoglycemia: s/p IV fluid bolus in the ED, to be followed by NS@100cc/hr BMP in the morning to trend serum sodium level GI ppx: not currently indicated DVT ppx: Lovenox Code status: Full Prognosis: guarded Disposition: inpatient med surg Time Spent With Patient Time: Total time spent is greater than 50% in coordination of care (as documented) at patient's floor/unit and/or counseling patient: Total time spent with greater than 50% in coordination of care (as documented) at patient's floor/unit and/or counseling patient:: 25 - 35 minutes QUALITY VTE Deep Vein Thrombosis/Pulmonary Embolism Present on Admission: No
[2022-06-13] MEDS: HYDROmorphone 1 MG/ML SYRINGE IV PRN ×2 (12:06→14:49)
[2022-06-13 12:08] LABS: Basophils # (Auto) 0.07 K/mcL (0.00-0.30); Basophils % (Auto) 0.4 % (0.0-2.0); Eosinophils # (Auto) 0.12 K/mcL (0.00-0.70); Eosinophils % (Auto) 0.6 % (0.0-7.0); Hematocrit 39.9 % (40.1-51.0); Hemoglobin 12.5 g/dL (13.7-17.5); Mean Cell Volume 98.3 fL (80.0-100.0); Mean Corpuscular HGB Conc 31.3 g/dL (31.0-36.0); Mean Platelet Volume 9.1 fL (7.4-10.4); Monocytes # (Auto) 1.29 K/mcL (0.10-0.90); Monocytes % (Auto) 6.7 % (1.0-12.0); Neutrophils % (Auto) 78.1 % (38.0-78.0); Platelet Count 414 K/mcL (140-440); RBC 4.06 M/mcL (4.63-6.08); Red Cell Distribution Width 12.8 % (11.5-14.5)
[2022-06-13 12:47] LABS: WBC 19.2 K/mcL (4.5-11.0)
[2022-06-13] MEDS: SENNOSIDES 1 TABLET PO SCH (21:04)
[2022-06-13] MEDS: ONDANSETRON 4 MG/2 ML VIAL IV PRN (23:35)
[2022-06-14] MEDS: 0.9 % SODIUM CHLORIDE 1,000 ML IV SCH ×3 (02:16→16:15)
[2022-06-14] MEDS: PIPERACILLIN SODIUM/TAZOBACTAM 3.375 GM in DEXTROSE 5% IN WATER 50 ML IV SCH ×3 (06:18→17:16)
[2022-06-14] MEDS: 0.9 % SODIUM CHLORIDE 10 ML SYRINGE IV SCH ×3 (06:19→21:16)
[2022-06-14] MEDS: INSULIN LISPRO 1 UNIT/0.01 ML UNIT SQ SCH ×4 (06:57→21:15)
[2022-06-14 08:06] LABS: Basophils # (Auto) 0.17 K/mcL (0.00-0.30); Basophils % (Auto) 0.8 % (0.0-2.0); Eosinophils # (Auto) 0.12 K/mcL (0.00-0.70); Eosinophils % (Auto) 0.6 % (0.0-7.0); Hematocrit 35.2 % (40.1-51.0); Hemoglobin 11.5 g/dL (13.7-17.5); Lymphocytes # (Auto) 3.71 K/mcL (1.50-4.80); Lymphocytes % (Auto) 17.9 % (15.5-49.0); Mean Cell Volume 96.2 fL (80.0-100.0); Mean Corpuscular HGB Conc 32.7 g/dL (31.0-36.0); Monocytes # (Auto) 1.53 K/mcL (0.10-0.90); Monocytes % (Auto) 7.4 % (1.0-12.0); Neutrophils % (Auto) 68.6 % (38.0-78.0); Platelet Count 461 K/mcL (140-440); RBC 3.66 M/mcL (4.63-6.08); Red Cell Distribution Width 12.7 % (11.5-14.5); WBC 20.7 K/mcL (4.5-11.0)
[2022-06-14] MEDS: DOCUSATE SODIUM 100 MG CAPSULE PO SCH ×2 (08:22→21:13)
[2022-06-14] MEDS: ENOXAPARIN 40 MG/0.4 ML SYRINGE SQ SCH (08:22)
[2022-06-14] MEDS: oxyCODONE HCL 5 MG TABLET PO PRN ×3 (09:44→21:13)
[2022-06-14 11:22] LABS: Blood Urea Nitrogen 9 mg/dL (6-20); Calcium 7.9 mg/dL (8.6-10.4); Carbon Dioxide 28 mmol/L (22-30); Chloride 99 mmol/L (96-108); Glomerular Filtration Rate 101; Glucose 123 mg/dL (70-105)
--- NOTE | 2022-06-14 11:29 | Internal Med Progress Note ---
SUBJECTIVE Subjective Patient information: Note initiated : 06/14/22 at 11:27 am Service Date, if different from initiated Date: [] Patient: Samir Montes 51 y/o M admitted on 06/11/22 for rt lower leg pain. Chief Complaint: [] Principal diagnosis: Right lower extremity purulent cellulitis Interval history: The patient was resting comfortably in bed. He wishes to go home but understands that clearly he is not ready yet. He is unable to ambulate. Discussed the case with general surgery attending and the [employer]. Constitutional Vitals: Vital Signs Temp Pulse Resp BP Pulse Ox O2 Del Method 97.4 F 88 16 136/80 94 06/14/22 11:13 06/14/22 11:13 06/14/22 11:13 06/14/22 11:13 06/14/22 11:13 06/14/22 11:13 Period Temp Pulse Resp BP Sys/Wang Pulse Ox O2 Del Method O2 Flow Rate Last 24 Hr 96.2 F-102.4 F 86-102 14-20 107-160/56-89 93-98 Room Air-Room Air Intake and Output 06/13/22 06/14/22 06/14/22 21:59 05:59 13:59 Intake Total 1200 1250 170 Output Total 750 850 925 Balance 450 400 -755 Weight 137.983 kg Intake & Output: Intake & Output 06/13/22 06/14/22 06/14/22 21:59 05:59 13:59 Intake Total 1200 1250 170 Output Total 750 850 925 Balance 450 400 -755 Weight 137.983 kg Intake: IV 100 1050 50 Sodium Chloride 0.9% 1,000 ml @ 1000 100 mls/hr IV .Q10H [facility] Rx#: [id number] Zosyn 3.375 gm In Dextrose 5% 100 50 50 in Water 50 ml @ 100 mls/hr IV Q6H [facility] Rx#:[id number] Oral 1100 200 120 Output: Void Amount 750 850 925 Other: Meal Breakfast Percent of Meal Consumed 100% Feeding Ability Independent Urine Appearance Cloudy Clear Clear Urine Color Dark Yellow Yellow Yellow Urine Odor Normal Head Head exam: Present atraumatic and normal inspection Eye Eye exam: Present normal appearance ENT ENT exam: Present mucous membranes moist, normal exam and normal external ear exam Neck Neck exam: Present normal inspection Respiratory Respiratory exam: Present normal respiratory exam Cardiovascular Cardiovascular exam: Present normal rate and rhythm GI/Abdominal GI/Abdominal exam: Present normal bowel sounds Back Exam Back exam: Present normal inspection Neurological Exam Neurological exam: Present alert and oriented X3 Skin Skin exam: Present intact and warm OBJ DATA Labs CBC & Chem 7: 06/14/22 05:06 06/14/22 10:35 Labs: Abnormal Lab Results 06/14/22 06/14/22 06/13/22 10:35 05:06 08:35 WBC 20.7 H 19.2 H RBC 3.66 L 4.06 L Hgb 11.5 L 12.5 L Hct 35.2 L 39.9 L Plt Count 461 H Immature Gran % (Auto) 4.7 H 2.2 H Neut % (Auto) 78.1 H Lymph % (Auto) 12.0 L [place] # (Auto) 1.53 H 1.29 H Immature Gran # 0.98 H 0.43 H Absolute Neutrophils 15.20 H 15.41 H Anion Gap 7.0 L Glucose 123 H Hemoglobin A1c Calcium 7.9 L Procalcitonin 06/12/22 06/12/22 06/11/22 05:43 05:43 11:51 WBC 23.3 H RBC 3.79 L Hgb 12.0 L Hct 36.1 L Plt Count Immature Gran % (Auto) 1.8 H Neut % (Auto) 81.4 H Lymph % (Auto) 7.6 L [place] # (Auto) 2.04 H Immature Gran # 0.42 H Absolute Neutrophils 19.40 H Anion Gap Glucose 132 H Hemoglobin A1c Calcium 7.9 L Procalcitonin 2.76 H 06/11/22 11:51 WBC RBC Hgb Hct Plt Count Immature Gran % (Auto) Neut % (Auto) Lymph % (Auto) [place] # (Auto) Immature Gran # Absolute Neutrophils Anion Gap Glucose Hemoglobin A1c 6.3 H Calcium Procalcitonin Meds: Medications Acetaminophen (Acetaminophen 325 Mg Tablet) 650 mg PO Q6HP PRN; Protocol PRN Reason: Per Pain Protocol/Fever > 101 Last Admin: 06/12/22 13:07 Dose: 650 mg Dextrose (Dextrose 50% 50 Ml Vial) 0 ml IV UD PRN PRN Reason: Per Sliding Scale Diagnostic Test (Pha) (Accu-Chek 1 Each Strip) 1 each FS ACHS [facility] Last Admin: 06/14/22 11:19 Dose: 1 each Docusate Sodium (Docusate Sodium 100 Mg Capsule) 100 mg PO BID [facility] Last Admin: 06/14/22 08:22 Dose: 100 mg Enoxaparin Sodium (Enoxaparin 40 Mg/0.4 Ml Syringe) 40 mg SQ DAILY [facility] Last Admin: 06/14/22 08:22 Dose: 40 mg Glucose (Dextrose 31 Gm Oral.Susp) 15 gm PO PRN PRN PRN Reason: Hypoglycemia Hydromorphone HCl (Hydromorphone 1 Mg/Ml Syringe) 0.75 mg IV Q1HP PRN; Protocol PRN Reason: Per Pain Protocol Last Admin: 06/13/22 14:49 Dose: 0.75 mg Sodium Chloride (Sodium Chloride 0.9%) 1,000 mls @ 100 mls/hr IV .Q10H [facility] Last Admin: 06/14/22 10:57 Dose: Not Given Piperacillin Sod/Tazobactam (Sod 3.375 gm/ Dextrose) 50 mls @ 100 mls/hr IV Q6H [facility]; Protocol Last Admin: 06/14/22 11:10 Dose: 100 mls/hr Insulin Human Lispro (Insulin Lispro 1 Unit/0.01 Ml Unit) 0 unit SQ [facility]; Protocol Last Admin: 06/14/22 11:19 Dose: Not Given Morphine Sulfate (Morphine 4 Mg/Ml Vial) 4 mg IV Q4HP PRN; Protocol PRN Reason: Per Pain Protocol Last Admin: 06/13/22 14:05 Dose: 4 mg Ondansetron HCl (Ondansetron 4 Mg/2 Ml Vial) 4 mg IV Q6HP PRN PRN Reason: Nausea And Vomiting Last Admin: 06/13/22 23:35 Dose: 4 mg Oxycodone HCl (Oxycodone Hcl 5 Mg Tablet) 5 mg PO Q4HP PRN; Protocol PRN Reason: Per Pain Protocol Last Admin: 06/14/22 09:44 Dose: 5 mg Senna (Sennosides 1 Tablet) 2 tab PO HS [facility] Last Admin: 06/13/22 21:04 Dose: 2 tab Sodium Chloride (0.9 % Sodium Chloride 10 Ml Syringe) 10 ml IV Q8 [facility] Last Admin: 06/14/22 06:19 Dose: Not Given A/P Assessment and plan (1) Cellulitis: Status: Acute Qualifiers: Laterality: right Site of cellulitis: extremity Site of cellulitis of extremity: lower extremity Qualified Code(s): L03.115 - Cellulitis of right lower limb (2) Sepsis: Status: Acute Qualifiers: Sepsis acute organ dysfunction status: without acute organ dysfunction Sepsis type: sepsis due to unspecified organism Qualified Code(s): A41.9 - Sepsis, unspecified organism (3) Hyperglycemia: Status: Acute (4) Hyponatremia: Status: Acute Narrative A/P Narrative: Assessment and Plans: 1. Right lower leg cellulitis with sepsis: -The patient's MRSA screen was negative and we will discontinue vancomycin. He remains afebrile and his white blood cell count is come down from 31.5 and is now 23.3. Continue wound care. -Repeat CBC is pending this morning. Continue Zosyn and have added IV Dilaudid prior to wound care for dressing changes. -We will consult general surgery today for consideration of bedside debridement -PT evaluation is pending 2. Hyperglycemia: DDx: sepsis response, undiagnosed diabetes HgA1c-> 6.3% discussed lifestyle modifications SSI AC HS Accu Chek AC HS Hypoglycemia protocol Regular diet Treat the infection, see #1 3. Hypoglycemia: s/p IV fluid bolus in the ED, to be followed by NS@100cc/hr BMP in the morning to trend serum sodium level GI ppx: not currently indicated DVT ppx: Lovenox Code status: Full Prognosis: guarded Disposition: inpatient med surg Time Spent With Patient Time: Total time spent is greater than 50% in coordination of care (as documented) at patient's floor/unit and/or counseling patient: Total time spent with greater than 50% in coordination of care (as documented) at patient's floor/unit and/or counseling patient:: 25 - 35 minutes QUALITY VTE Deep Vein Thrombosis/Pulmonary Embolism Present on Admission: No
[2022-06-14] MEDS: SENNOSIDES 1 TABLET PO SCH (21:13)
[2022-06-15] MEDS: morphine 4 MG/ML VIAL IV PRN (00:13)
[2022-06-15] MEDS: PIPERACILLIN SODIUM/TAZOBACTAM 3.375 GM in DEXTROSE 5% IN WATER 50 ML IV SCH ×5 (00:16→23:37)
[2022-06-15] MEDS: ONDANSETRON 4 MG/2 ML VIAL IV PRN (00:28)
[2022-06-15] MEDS: 0.9 % SODIUM CHLORIDE 1,000 ML IV SCH ×2 (04:35→06:38)
[2022-06-15] MEDS: oxyCODONE HCL 5 MG TABLET PO PRN ×2 (06:11→08:49)
[2022-06-15] MEDS: 0.9 % SODIUM CHLORIDE 10 ML SYRINGE IV SCH ×3 (06:16→20:41)
[2022-06-15 06:37] LABS: Basophils % (Auto) 0.5 % (0.0-2.0); Eosinophils # (Auto) 0.19 K/mcL (0.00-0.70); Hemoglobin 10.9 g/dL (13.7-17.5); Lymphocytes # (Auto) 3.93 K/mcL (1.50-4.80); Lymphocytes % (Auto) 21.5 % (15.5-49.0); Mean Cell Volume 96.9 fL (80.0-100.0); Mean Corpuscular HGB Conc 32.1 g/dL (31.0-36.0); Mean Platelet Volume 8.6 fL (7.4-10.4); Monocytes # (Auto) 1.01 K/mcL (0.10-0.90); Monocytes % (Auto) 5.5 % (1.0-12.0); Neutrophils % (Auto) 65.8 % (38.0-78.0); Platelet Count 489 K/mcL (140-440); RBC 3.51 M/mcL (4.63-6.08); Red Cell Distribution Width 12.9 % (11.5-14.5); WBC 18.3 K/mcL (4.5-11.0)
[2022-06-15] MEDS: INSULIN LISPRO 1 UNIT/0.01 ML UNIT SQ SCH ×4 (07:23→20:41)
[2022-06-15] MEDS: ENOXAPARIN 40 MG/0.4 ML SYRINGE SQ SCH (08:48)
[2022-06-15] MEDS: FLUCONAZOLE 100 MG TABLET PO SCH (08:50)
[2022-06-15] MEDS: DOCUSATE SODIUM 100 MG CAPSULE PO SCH ×2 (08:54→20:40)
--- NOTE | 2022-06-15 13:14 | Internal Med Progress Note ---
SUBJECTIVE Subjective Patient information: Note initiated : 06/15/22 at 1:13 pm Service Date, if different from initiated Date: [] Patient: Samir Montes 51 y/o M admitted on 06/11/22 for rt lower leg pain. Chief Complaint: [] Principal diagnosis: Right lower extremity purulent cellulitis Interval history: The patient is in good spirits. He states that he is very happy with the amount of department that was performed. He states that his leg swelling is coming down. He was able to walk around the medical sen with physical therapy. Constitutional Vitals: Vital Signs Temp Pulse Resp BP Pulse Ox O2 Del Method 98.3 F 83 16 112/70 96 06/15/22 06:58 06/15/22 06:58 06/15/22 07:43 06/15/22 06:58 06/15/22 07:43 06/15/22 07:43 Period Temp Pulse Resp BP Sys/Wang Pulse Ox O2 Del Method O2 Flow Rate Last 24 Hr 97.1 F-98.7 F 83-90 16-18 112-139/70-79 95-98 Room Air-Room Air Intake and Output 06/14/22 06/15/22 06/15/22 21:59 05:59 13:59 Intake Total 650 1410 100 Output Total 800 Balance 650 610 100 Weight 139.298 kg Intake & Output: Intake & Output 06/14/22 06/15/22 06/15/22 21:59 05:59 13:59 Intake Total 650 1410 100 Output Total 800 Balance 650 610 100 Weight 139.298 kg Intake: IV 50 1050 100 Sodium Chloride 0.9% 1,000 ml @ 1000 100 mls/hr IV .Q10H DAMIÁN Rx#: [id number] Zosyn 3.375 gm In Dextrose 5% 50 50 100 in Water 50 ml @ 100 mls/hr IV Q6H DAMIÁN Rx#:[id number] Oral 600 360 Output: Void Amount 800 Other: Urine Appearance Clear Clear Urine Color Bright Yellow Dark Yellow Urine Odor Normal Normal Head Head exam: Present atraumatic and normal inspection Eye Eye exam: Present normal appearance ENT ENT exam: Present mucous membranes moist, normal exam and normal external ear exam Neck Neck exam: Present normal inspection Respiratory Respiratory exam: Present normal respiratory exam Cardiovascular Cardiovascular exam: Present normal rate and rhythm GI/Abdominal GI/Abdominal exam: Present normal bowel sounds Back Exam Back exam: Present normal inspection Neurological Exam Neurological exam: Present alert and oriented X3 Skin Skin exam: Present intact and warm OBJ DATA Labs CBC & Chem 7: 06/15/22 05:20 06/14/22 10:35 Labs: Abnormal Lab Results 06/15/22 06/14/22 06/14/22 05:20 10:35 05:06 WBC 18.3 H 20.7 H RBC 3.51 L 3.66 L Hgb 10.9 L 11.5 L Hct 34.0 L 35.2 L Plt Count 489 H 461 H Immature Gran % (Auto) 5.7 H 4.7 H Neut % (Auto) Lymph % (Auto) [place] # (Auto) 1.01 H 1.53 H Immature Gran # 1.04 H 0.98 H Absolute Neutrophils 12.02 H 15.20 H Anion Gap 7.0 L Glucose 123 H Calcium 7.9 L 06/13/22 08:35 WBC 19.2 H RBC 4.06 L Hgb 12.5 L Hct 39.9 L Plt Count Immature Gran % (Auto) 2.2 H Neut % (Auto) 78.1 H Lymph % (Auto) 12.0 L [place] # (Auto) 1.29 H Immature Gran # 0.43 H Absolute Neutrophils 15.41 H Anion Gap Glucose Calcium Meds: Medications Acetaminophen (Acetaminophen 325 Mg Tablet) 650 mg PO Q6HP PRN; Protocol PRN Reason: Per Pain Protocol/Fever > 101 Last Admin: 06/12/22 13:07 Dose: 650 mg Dextrose (Dextrose 50% 50 Ml Vial) 0 ml IV UD PRN PRN Reason: Per Sliding Scale Diagnostic Test (Pha) (Accu-Chek 1 Each Strip) 1 each FS ACHS [facility] Last Admin: 06/15/22 11:18 Dose: 1 each Docusate Sodium (Docusate Sodium 100 Mg Capsule) 100 mg PO BID [facility] Last Admin: 06/15/22 08:54 Dose: 100 mg Enoxaparin Sodium (Enoxaparin 40 Mg/0.4 Ml Syringe) 40 mg SQ DAILY [facility] Last Admin: 06/15/22 08:48 Dose: 40 mg Fluconazole (Fluconazole 100 Mg Tablet) 200 mg PO DAILY [facility]; Protocol Last Admin: 06/15/22 08:50 Dose: 200 mg Glucose (Dextrose 31 Gm Oral.Susp) 15 gm PO PRN PRN PRN Reason: Hypoglycemia Hydromorphone HCl (Hydromorphone 1 Mg/Ml Syringe) 0.75 mg IV Q1HP PRN; Protocol PRN Reason: Per Pain Protocol Last Admin: 06/13/22 14:49 Dose: 0.75 mg Sodium Chloride (Sodium Chloride 0.9%) 1,000 mls @ 100 mls/hr IV .Q10H [facility] Last Admin: 06/15/22 06:38 Dose: Not Given Piperacillin Sod/Tazobactam (Sod 3.375 gm/ Dextrose) 50 mls @ 100 mls/hr IV Q6H [facility]; Protocol Last Infusion: 06/15/22 11:45 Dose: Infused Insulin Human Lispro (Insulin Lispro 1 Unit/0.01 Ml Unit) 0 unit SQ ACHS [facility]; Protocol Last Admin: 06/15/22 11:19 Dose: Not Given Morphine Sulfate (Morphine 4 Mg/Ml Vial) 4 mg IV Q4HP PRN; Protocol PRN Reason: Per Pain Protocol Last Admin: 06/15/22 00:13 Dose: 4 mg Ondansetron HCl (Ondansetron 4 Mg/2 Ml Vial) 4 mg IV Q6HP PRN PRN Reason: Nausea And Vomiting Last Admin: 06/15/22 00:28 Dose: 4 mg Oxycodone HCl (Oxycodone Hcl 5 Mg Tablet) 5 mg PO Q4HP PRN; Protocol PRN Reason: Per Pain Protocol Last Admin: 06/15/22 08:49 Dose: 5 mg Senna (Sennosides 1 Tablet) 2 tab PO HS [facility] Last Admin: 06/14/22 21:13 Dose: 2 tab Sodium Chloride (0.9 % Sodium Chloride 10 Ml Syringe) 10 ml IV Q8 [facility] Last Admin: 06/15/22 12:46 Dose: Not Given A/P Assessment and plan (1) Cellulitis: Status: Acute Qualifiers: Laterality: right Site of cellulitis: extremity Site of cellulitis of extremity: lower extremity Qualified Code(s): L03.115 - Cellulitis of right lower limb (2) Sepsis: Status: Acute Qualifiers: Sepsis acute organ dysfunction status: without acute organ dysfunction Sepsis type: sepsis due to unspecified organism Qualified Code(s): A41.9 - Sepsis, unspecified organism (3) Hyperglycemia: Status: Acute (4) Hyponatremia: Status: Acute Narrative A/P Narrative: Assessment and Plans: 1. Right lower leg cellulitis with sepsis: -The patient's MRSA screen was negative and we will discontinue vancomycin. He remains afebrile and his white blood cell count is come down from 31.5 and is now 23.3. Continue wound care. -Repeat CBC is pending this morning. Continue Zosyn and have added IV Dilaudid prior to wound care for dressing changes. -We will consult general surgery today for consideration of bedside debridement- > no further debridement needed at this time -PT evaluation-> likely home 2. Hyperglycemia: DDx: sepsis response, undiagnosed diabetes HgA1c-> 6.3% discussed lifestyle modifications SSI AC HS Accu Chek AC HS Hypoglycemia protocol Regular diet Treat the infection, see #1 3. Hypoglycemia: s/p IV fluid bolus in the ED, to be followed by NS@100cc/hr BMP in the morning to trend serum sodium level GI ppx: not currently indicated DVT ppx: Lovenox Code status: Full Prognosis: guarded Disposition: inpatient med surg Time Spent With Patient Time: Total time spent is greater than 50% in coordination of care (as documented) at patient's floor/unit and/or counseling patient: Total time spent with greater than 50% in coordination of care (as documented) at patient's floor/unit and/or counseling patient:: 25 - 35 minutes QUALITY VTE Deep Vein Thrombosis/Pulmonary Embolism Present on Admission: No
[2022-06-15] MEDS: SENNOSIDES 1 TABLET PO SCH (20:40)
[2022-06-16] MEDS ORDERED: MAGNESIUM HYDROXIDE 30 ML ORAL.SUSP ONE ×2 (02:09→03:14)
[2022-06-16] MEDS: PIPERACILLIN SODIUM/TAZOBACTAM 3.375 GM in DEXTROSE 5% IN WATER 50 ML IV SCH ×2 (05:33→11:10)
[2022-06-16] MEDS: 0.9 % SODIUM CHLORIDE 10 ML SYRINGE IV SCH (05:37)
[2022-06-16] MEDS: INSULIN LISPRO 1 UNIT/0.01 ML UNIT SQ SCH ×2 (07:29→11:11)
[2022-06-16] MEDS: DOCUSATE SODIUM 100 MG CAPSULE PO SCH (08:44)
[2022-06-16] MEDS: FLUCONAZOLE 100 MG TABLET PO SCH (08:44)
[2022-06-16] MEDS: ENOXAPARIN 40 MG/0.4 ML SYRINGE SQ SCH (08:45)
[2022-06-16] MEDS: oxyCODONE HCL 5 MG TABLET PO PRN (09:39)
--- NOTE | 2022-06-16 11:03 | Discharge Summary ---
Discharge Provider Provider IMPORTANT FOLLOW-UP INFORMATION FOR PCP: 1. Wound care 2. Follow up labs within 1 week 3. Diabetic education (A1c is 6.3) Patient information: Note initiated : 06/16/22 at 11:02 am Service Date, if different from initiated Date: [] Patient: Samir Montes 51 y/o M admitted on 06/11/22 for rt lower leg pain. Chief Complaint: [] Date of admission: 06/11/22 11:07 Discharge date: 06/16/22 Primary care physician: PCP No Consults: 06/11/22 Consult to Physician [CONS] Stat Comment: Consulting Provider: Finn Mathias Reason For Exam: Physician to Consult 06/14/22 11:26 Consult to Physician [CONS] Routine Comment: Consulting Provider: Chayito Arriaza Reason For Exam: Physician to Consult Attending physician on discharge: Jasmit Coy COURSE Hospital Course Hospital course: The patient was found to have significant purulent drainage of the right lower extremity that required extensive wound care and bedside debridement. He required daily dressing changes with IV narcotic analgesics. This patient states that his pain is greatly improved. He is now able to ambulate and walked around the medical sen with physical therapy. The patient remains afebrile and his white blood cell count continues to trend downwards. He is adamant about returning home today. He will be transition from Zosyn to Augmentin and will complete additional 10 days. He is now received 5 days of IV Zosyn. He will continue wound care and will follow-up closely with his primary care physician as instructed. Assessment and Plans: 1. Right lower leg cellulitis with sepsis: -The patient's MRSA screen was negative and we will discontinue vancomycin. He remains afebrile and his white blood cell count is come down from 31.5 and is now 23.3. Continue wound care. -Repeat CBC is pending this morning. Continue Zosyn and have added IV Dilaudid prior to wound care for dressing changes. -We will consult general surgery today for consideration of bedside debridement- > no further debridement needed at this time -PT evaluation-> likely home 2. Hyperglycemia: DDx: sepsis response, undiagnosed diabetes HgA1c-> 6.3% discussed lifestyle modifications SSI AC HS Accu Chek AC HS Hypoglycemia protocol Regular diet Treat the infection, see #1 3. Hypoglycemia: s/p IV fluid bolus in the ED, to be followed by NS@100cc/hr BMP in the morning to trend serum sodium level Discharge diagnosis: Sepsis, RLE purulent cellulitis Time Spent with Patient Time attestation: Total time spent providing and/or coordinating discharge services: Time spent: Greater than 30 minutes EXAM Constitutional Vitals: Temp Pulse Resp BP Pulse Ox O2 Del Method 98.1 F 83 20 131/76 98 06/16/22 08:00 06/16/22 03:10 06/16/22 08:00 06/16/22 08:00 06/16/22 08:00 06/16/22 08:00 General appearance: cooperative Head Head exam: Present atraumatic, normal inspection and normocephalic Eye Eye exam: Present EOMI, normal appearance and PERRL; Absent conjunctival inject ion ENT ENT exam: Present normal exam; Absent mucous membranes dry Neck Neck exam: Present full ROM; Absent lymphadenopathy Respiratory Respiratory exam: Present normal respiratory exam and CTAB; Absent decreased breath sounds, respiratory distress or wheezes Cardiovascular Cardiovascular exam: Present normal rate and rhythm and RRR; Absent JVD GI/Abdominal GI/Abdominal exam: Present normal bowel sounds and soft; Absent diminished bowel sounds, distended, guarding, mass, rebound or tenderness Neurological Exam Neurological exam: Present alert, CN II-XII intact and oriented X3 Psychiatric Psychiatric exam: Present normal affect and normal mood Skin Skin exam: Present intact and warm; Absent erythema, pallor, petechiae or rash Discharge Data Data Completed and Pending Labs on day of discharge: Preliminary micro results at discharge 06/15/22 00:27 Gram Stain - Preliminary Leg - Right Discharge Plan Patient/Caregiver Discharge Instructions Activity: increase activity as tolerated Diet: Consistent Carbohydrate Instructions: Cellulitis (DC) Prescriptions: New amoxicillin-pot clavulanate 875-125 mg tablet 1 tab PO Q12H Qty: 20 0RF Other Ambulatory Orders: Wound Care/Dressings (Daily) Location: None Selected Ordered By: Elsy Cespedes Follow Up Plan Follow up with: Lashanda,PCP [Primary Care Provider] - Patient Disposition: Home, Self-Care Care Plan Goals: 1. Ongoing daily wound care 2. Complete 10 additional days of antibiotics 3. Follow up with PCP Prognosis: Fair Rehab Potential: Good I certify that the patient requires SNF services: No Overall status at discharge: patient is progressing back to baseline Discharge Orders: Discharge Order (Routine); Ordered 06/16/22 Ordered By: Elsy DIOP VTE Deep Vein Thrombosis/Pulmonary Embolism Present on Admission: No
== END 2022-06-16 13:13 | disposition home or self-care (01) | DRG 872 ==
LOC: ED 08:39 → MEDSUR 11:07
PROVIDERS: ADMIT Internal Medicine; ATTEND Internal Medicine

== ENCOUNTER 2022-07-12 10:51 | Inpatient (IN) ==
[2022-07-12] MEDS ORDERED: IOPAMIDOL 100 ML BOTTLE IV ONE (10:52)
--- NOTE | 2022-07-12 11:07 | Emergency Department Note ---
HPI General Chief complaint: Extremity Injury, Lower Stated complaint: wound to right leg Time Seen by Provider: 07/12/22 11:05 Source: patient Mode of arrival: ambulatory Limitations: no limitations History of Present Illness HPI Narrative: ToNarrative: Patient is a 51-year-old male with no known past medical history presents to the emergency department right lower extremity infection. Patient states that he wa s admitted for this infection recently, was discharged with antibiotics, and finished these antibiotics. He states that the wound appears similar to when he was discharged, but now he has significant pain in the right lower extremity, especially in the foot. He states that he has had discharge from a wound on the right lower extremity in the front of the leg, but that it appears the same as when he was discharged. He endorses redness that is almost up to the knee, but states that has not spread since discharge. He denies any other concerns at this time. Related Data Previous Rx's Medication Instructions Recorded amoxicillin 875 mg-potassium 1 tab PO Q12H #20 tabs 06/16/22 clavulanate 125 mg tablet Allergies Allergy/AdvReac Type Severity Reaction Status Date / Time No Known Drug Allergies Allergy Verified 07/12/22 10:56 Review of Systems ROS ROS Narrative: Narrative: Constitutional: Denies fever or weakness Eyes: Denies eye pain or vision change ENT ED: Denies throat pain, hearing loss or rhinorrhea Cardiovascular: Denies chest pain, dyspnea on exertion, orthopnea or edema Respiratory: Denies shortness of breath or cough Gastrointestinal: Denies abdominal pain, nausea, vomiting, diarrhea or constipation Genitourinary: Denies dysuria or frequency Musculoskeletal: Reports other (Severe foot and leg pain with large wound on right lower extremity); Denies back pain or myalgia Integumentary: Denies rash or lesions Neurological: Denies headache, weakness, numbness, confusion, abnormal gait or dizziness [facility] Narrative Patient History Narrative: Narrative: Medical/Surgical/Family History All Active Problems (Updated 07/12/22 @ 15:55 by Jose Alexandra MD) Cellulitis (Acute) Abscess (Acute) Hyponatremia (Acute) Hyperglycemia (Acute) Cellulitis (Acute) Sepsis (Acute) Exam Narrative Narrative: Narrative: General Limitations: no limitations General appearance: Present alert and in no apparent distress; Absent anxious or appears intoxicated Head Head: Present atraumatic and normocephalic Eye Eye: Present PERRL and EOMI; Absent scleral icterus ENT ENT: Present mucous membranes moist; Absent nasal congestion Neck Neck: Present full ROM and trachea midline Chest Chest: Present normal inspection and symmetric chest wall rise Respiratory Respiratory: Present normal lung sounds bilaterally; Absent respiratory distress or accessory muscle use Cardiovascular Cardiovascular: Present regular rate, normal rhythm and normal heart sounds Adbominal Abdominal: Present soft; Absent distention Extremities Extremities: Present normal inspection, full ROM and tenderness (Right foot, anterior leg, and at wound on anterior leg) Back Back: Present normal inspection and full ROM Neurological Neurological: Present alert and oriented X3 Psychiatric Psychiatric: Present normal affect and normal mood Skin Skin: Present warm (WNL), dry and erythema (Foot, anterior right leg, almost to the knee) Course Vital Signs Vital signs: Vital Signs Temperature 98.5 F 07/12/22 10:52 Pulse Rate 107 H 07/12/22 10:52 Respiratory Rate 16 07/12/22 10:52 Blood Pressure 145/99 07/12/22 10:52 Pulse Oximetry (%) 96 07/12/22 10:52 Oxygen Delivery Method 07/12/22 10:52 Temperature 98.5 F 07/12/22 10:52 Pulse Rate 95 H 07/12/22 15:31 Respiratory Rate 16 07/12/22 10:52 Blood Pressure 152/98 07/12/22 15:31 Pulse Oximetry (%) 98 07/12/22 15:31 Oxygen Delivery Method 07/12/22 10:52 MDM MDM Narrative Medical decision making narrative: Narrative: Patient is a 51-year-old male who presents due to increased pain with right lower extremity infection. Due to significant wound and infection, as well as tachycardia antibiotics, blood cultures, along with other labs have been ordered. Patient is also receiving saline. CT scan has been performed and demonstrates a large abscess underlying patient's wound. I spoken to Dr. Read who states that he will look at the image and then evaluate patient. Dr. Read has seen imaging and evaluated patient and states that he will wash patient out, but requests hospitalist admission. I have spoken to Dr. Mathias who has agreed to see and evaluate patient for admission. Lab Data Result diagrams: 07/12/22 11:41 Labs: Lab Results 07/12/22 07/12/22 07/12/22 Range/Units 11:41 11:41 11:41 WBC 16.6 H (4.5-11.0) K/mcL RBC 3.59 L (4.63-6.08) M/mcL Hgb 10.9 L (13.7-17.5) g/dL Hct 33.6 L (40.1-51.0) % POC Hct (41-55) MCV 93.6 (80.0-100.0) fL MCH 30.4 (26.0-34.0) pg MCHC 32.4 (31.0-36.0) g/dL RDW 12.2 (11.5-14.5) % Plt Count 427 (140-440) K/mcL MPV 8.9 (7.4-10.4) fL Immature Gran % (Auto) 0.6 H (0.0-0.5) % Neut % (Auto) 72.3 (38.0-78.0) % Lymph % (Auto) 16.8 (15.5-49.0) % [place] % (Auto) 9.5 (1.0-12.0) % Eos % (Auto) 0.4 (0.0-7.0) % Baso % (Auto) 0.4 (0.0-2.0) % Lymph # (Auto) 2.78 (1.50-4.80) K/mcL [place] # (Auto) 1.58 H (0.10-0.90) K/mcL Eos # (Auto) 0.07 (0.00-0.70) K/mcL Baso # (Auto) 0.06 (0.00-0.30) K/mcL Immature Gran # 0.10 H (0.00-0.05) K/mcl Absolute Neutrophils 12.00 H (1.80-8.00) K/mcL ESR 67 H (0-20) mm/hr VBG Lactic Acid 0.9 (0.5-2.0) mmol/L POC Sodium (133-145) POC Potassium (3.3-5.1) POC Chloride (96-108) POC Total CO2 (22-30) POC BUN (6-20) POC Creatinine (0.6-1.2) POC Glucose (70-105) POC WB Ioniz Calcium (1.16-1.32) C-Reactive Protein (0.03-0.80) mg/dL Procalcitonin 0.16 H (<0.10) ng/mL 07/12/22 07/12/22 Range/Units 11:41 11:41 WBC (4.5-11.0) K/mcL RBC (4.63-6.08) M/mcL Hgb (13.7-17.5) g/dL Hct (40.1-51.0) % POC Hct 33.0 L (41-55) MCV (80.0-100.0) fL MCH (26.0-34.0) pg MCHC (31.0-36.0) g/dL RDW (11.5-14.5) % Plt Count (140-440) K/mcL MPV (7.4-10.4) fL Immature Gran % (Auto) (0.0-0.5) % Neut % (Auto) (38.0-78.0) % Lymph % (Auto) (15.5-49.0) % [place] % (Auto) (1.0-12.0) % Eos % (Auto) (0.0-7.0) % Baso % (Auto) (0.0-2.0) % Lymph # (Auto) (1.50-4.80) K/mcL [place] # (Auto) (0.10-0.90) K/mcL Eos # (Auto) (0.00-0.70) K/mcL Baso # (Auto) (0.00-0.30) K/mcL Immature Gran # (0.00-0.05) K/mcl Absolute Neutrophils (1.80-8.00) K/mcL ESR (0-20) mm/hr VBG Lactic Acid (0.5-2.0) mmol/L POC Sodium 133 (133-145) POC Potassium 3.9 (3.3-5.1) POC Chloride 98 (96-108) POC Total CO2 23.0 (22-30) POC BUN 15 (6-20) POC Creatinine 1.3 H (0.6-1.2) POC Glucose 142 H (70-105) POC WB Ioniz Calcium 1.10 L (1.16-1.32) C-Reactive Protein 9.70 H (0.03-0.80) mg/dL Procalcitonin (<0.10) ng/mL Discharge Plan Patient/Caregiver Discharge Instructions Pt seen by INSURANCE UNDERWRITER/PA only: No Clinical Impression: Cellulitis, Abscess Instructions: Abscess (ED), Cellulitis (DC) Patient Disposition: Xfer As Inpt ([facility]) Follow up with: No,PCP [Primary Care Provider] - Prescriptions: No Action amoxicillin-pot clavulanate 875-125 mg tablet 1 tab PO Q12H Qty: 20 0RF
[2022-07-12] MEDS ORDERED: VANCOMYCIN 2,000 MG in 0.9 % SODIUM CHLORIDE 500 ML IV ONE (11:26)
[2022-07-12] MEDS ORDERED: 0.9 % SODIUM CHLORIDE 1,000 ML IV ONE ×2 (11:26→15:53)
[2022-07-12] MEDS ORDERED: HYDROmorphone 0.5 MG/0.5 ML SYRINGE IV ONE ×2 (11:44→16:28)
[2022-07-12 11:46] LABS: POC Calcium, Ionized 1.1 (1.16-1.32); POC Creatinine 1.3 (0.6-1.2); POC Potassium 3.9 (3.3-5.1)
[2022-07-12 12:45] LABS: Basophils # (Auto) 0.06 K/mcL (0.00-0.30); Basophils % (Auto) 0.4 % (0.0-2.0); Eosinophils # (Auto) 0.07 K/mcL (0.00-0.70); Eosinophils % (Auto) 0.4 % (0.0-7.0); Hematocrit 33.6 % (40.1-51.0); Hemoglobin 10.9 g/dL (13.7-17.5); Lymphocytes # (Auto) 2.78 K/mcL (1.50-4.80); Lymphocytes % (Auto) 16.8 % (15.5-49.0); Mean Cell Volume 93.6 fL (80.0-100.0); Mean Corpuscular HGB Conc 32.4 g/dL (31.0-36.0); Mean Platelet Volume 8.9 fL (7.4-10.4); Monocytes # (Auto) 1.58 K/mcL (0.10-0.90); Monocytes % (Auto) 9.5 % (1.0-12.0); Neutrophils % (Auto) 72.3 % (38.0-78.0); Platelet Count 427 K/mcL (140-440); RBC 3.59 M/mcL (4.63-6.08); Red Cell Distribution Width 12.2 % (11.5-14.5); WBC 16.6 K/mcL (4.5-11.0)
[2022-07-12 12:54] LABS: Erythrocyte Sedimentation Rate 67 mm/hr (0-20)
--- NOTE | 2022-07-12 12:58 | Cat Scan Report ---
History: Severe infection in the right lower leg, evaluate for osteomyelitis technique: Following injection of intravenous nonionic contrast the right leg was imaged from above the knee to the bottom of the foot. Sagittal and coronal reformats were created. Radiation exposure was limited using dose reduction technology. FINDINGS: There is a large open skin wound along the anterior aspect of the mid whaley. Deep to the open skin wound there is a large abscess collection. The pocket measures 1.4 cm in depth, 9 cm in greatest width and 15 cm in greatest length. It contains a few small bubbles of gas. No foreign body is present. The underlying tibia and fibula are normal without evidence of osteomyelitis. The bones are normally mineralized. There is no fracture. There is generalized edema of the calf. The knee and ankle joint spaces are normal. IMPRESSION: Large open wound in the mid whaley with underlying abscess Normal tibia and fibula, without evidence of osteomyelitis Dr. Alexandra was called with the report Interpreted and Authenticated by: Benson Khanna 07/12/22
[2022-07-12] MEDS ORDERED: PIPERACILLIN SODIUM/TAZOBACTAM 4.5 GM in DEXTROSE 5% IN WATER 50 ML IV ONE (15:29)
--- NOTE | 2022-07-12 16:20 | General Surgery Consult Note ---
HPI Data of Consult Patient: new to practice Consult date: 07/12/22 Requesting physician: Jose Alexandra Primary Care Provider: PCP No Consult Narrative Patient Information: Note initiated : 07/12/22 at 4:13 pm Service Date, if different from initiated Date: [] Patient: Samir Montes 51 y/o M admitted on for a wound to right leg. Chief Complaint: [Infected Right Leg Wound] Samir is seen in consultation today with an ongoing issue related to an open Right Leg Wound that has been present for some amount of time the full extent of which is uncertain. He was in the hospital for a week or so for this here and sent home on oral ABs that he completed roughly 10 day post discharge. It is not entirely certain how this began either but he believes he might have suffered some trauma to the area and that it subsequently became infected. His medical care has been marginal and he denies any known medical issues but describes swelling sometime in his legs. He appeared somewhat septic here on arrival and has been given IV ABs and fluids. Medicine has been consulted as well. He denies any known cardiac or pulmonary issues. He does not drink or smoke in any significant amount and he denies any IVDA or other substance abuse. He is not on any home meds and denies use of oral anticoagulants cc:: CC: Review of Systems Review of systems: Constitutional Constitutional: Absent chills, excessive sweating, fatigue, fever(s) or weakness EENT Eyes: Absent blurry vision, change in vision, loss of vision or other visual disturbances Ears: Absent decreased hearing or tinnitus Nose, mouth and throat: Absent abnormal hearing, dry mouth, headache(s), nasal congestion or sore throat Cardiovascular Cardiovascular: Absent chest pain, chest pain at rest, edema, irregular heart rhythm or palpatations Respiratory Respiratory: Absent cough, dyspnea or wheezing Gastrointestinal Gastrointestinal: Present nausea; Absent abdominal pain, constipation, diarrhea or vomiting Musculoskeletal Musculoskeletal: Absent back pain, deformity, limited range of motion, muscle cramps, muscle weakness or numbness Additional comments: erythema, swelling, pain of the right lower leg Integumentary Integumentary: Present erythema, lesions and swelling; Absent rash or wounds Additional comments: erythema, swelling, pain of the right lower leg Neurological Neurological: Absent focal weakness, headache(s) or numbness Psychiatric Psychiatric: Absent anxiety, depression or hallucinations PFSH PFSH All Active Problems Cellulitis (Acute) Abscess (Acute) Hyponatremia (Acute) Hyperglycemia (Acute) Cellulitis (Acute) Sepsis (Acute) MEDS/ALLERGIES Home Medications and Allergies Home Medications Medication Instructions Recorded Confirmed Type No Known Home Meds 07/12/22 07/12/22 History Allergies Allergy/AdvReac Type Severity Reaction Status Date / Time No Known Drug Allergies Allergy Verified 07/12/22 10:56 Physical Examination Vital Signs Vital signs: Temp Pulse Resp BP Pulse Ox O2 Del Method 98.5 F 94 H 16 155/99 100 07/12/22 10:52 07/12/22 16:01 07/12/22 10:52 07/12/22 16:01 07/12/22 16:01 07/12/22 10:52 General physical appearance General physical exam: other (he is awake and conversant but seems poorly oriented and confused at times consistent with possible sepsis ) Eyes Eye exam: normal ocular movement ENT ENT exam: normal pinna and normal nares Head Head exam IM: Present atraumatic, normal inspection and normocephalic Neck Neck exam: trachea midline and no lymphadenopathy Cardiovascular Cardiovascular exam IM: Present normal rate and rhythm Respiratory Respiratory exam: normal respiratory effort Abdomen Abdomen: Present soft and non tender Integumentary Integumentary: Present other (see Right Leg, otherwise normal appearing intact skin ) Neurologic Neurologic: Present other (confused and somewhat non sensical but otherwise grossly intact ) Musculoskeletal Musculoskeletal: Present other (the Right Lower leg is somewhat swollen and i ntensely erythematous and cellulitic around a large open wound with necrosis, slough and foul odor in the immediate Right Mid Pretibial area ) Psychiatric Psychiatric: Present other (confused and somewhat non sensical but otherwise grossly intact ) Results Labs Result diagrams: 07/12/22 11:41 Labs: Abnormal lab results 07/12/22 07/12/22 07/12/22 Range/Units 11:41 11:41 11:41 WBC 16.6 H (4.5-11.0) K/mcL RBC 3.59 L (4.63-6.08) M/mcL Hgb 10.9 L (13.7-17.5) g/dL Hct 33.6 L (40.1-51.0) % POC Hct (41-55) Immature Gran % (Auto) 0.6 H (0.0-0.5) % [place] # (Auto) 1.58 H (0.10-0.90) K/mcL Immature Gran # 0.10 H (0.00-0.05) K/mcl Absolute Neutrophils 12.00 H (1.80-8.00) K/mcL ESR 67 H (0-20) mm/hr POC Creatinine (0.6-1.2) POC Glucose (70-105) POC WB Ioniz Calcium (1.16-1.32) C-Reactive Protein 9.70 H (0.03-0.80) mg/dL Procalcitonin 0.16 H (<0.10) ng/mL 07/12/22 Range/Units 11:41 WBC (4.5-11.0) K/mcL RBC (4.63-6.08) M/mcL Hgb (13.7-17.5) g/dL Hct (40.1-51.0) % POC Hct 33.0 L (41-55) Immature Gran % (Auto) (0.0-0.5) % [place] # (Auto) (0.10-0.90) K/mcL Immature Gran # (0.00-0.05) K/mcl Absolute Neutrophils (1.80-8.00) K/mcL ESR (0-20) mm/hr POC Creatinine 1.3 H (0.6-1.2) POC Glucose 142 H (70-105) POC WB Ioniz Calcium 1.10 L (1.16-1.32) C-Reactive Protein (0.03-0.80) mg/dL Procalcitonin (<0.10) ng/mL All other labs normal. A/P Assessment and plan (1) Abscess: Assessment and plan: Infected Open Right Lower Leg Wound with etiology not entirely certain He appears somewhat toxic and the wound is grossly infected and so I would favor progression to the OR this afternoon for Exploration, Washout, Debridement and Drainage CT does not support a deep space or subfascial infection at this time and this will likely be a soft tissue issue only but exploration will be required to definitively determine that Will need ongoing wound care and possible VAC placement in the coming days as well and I anticipate a fairly lengthy in patient stay until its clear this is resolving and dramatically improved Risks, benefits, potential complications and alternative treatment options were all discussed at length. He is aware of the need for possible future operative interventions as well and also aware that there is some risk that this could p rogress to a limb threatening situation if conventional measures are not successful Status: Acute Time Spent With Patient Time: Total time spent is greater than 50% in coordination of care (as documented) at patient's floor/unit and/or counseling patient:
--- NOTE | 2022-07-12 16:33 | Internal Med History&Physical ---
HPI History of Present Illness Patient information: Note initiated : 07/12/22 at 4:23 pm Service Date, if different from initiated Date: [] Patient: Samir Montes a 51 y/o M admitted on for wound to right leg. Chief Complaint: [right lower leg wound] Chief complaint: right lower leg wound History of present illness: Mr. Montes is a 51 year old M history of prediabetes, recently admitted to our facility from June 11 to June 16 with right leg cellulitis, presenting with worsening of right leg and foot wound and pain. He was admitted from June 11 to June 16 in our facility for right leg cellulitis, and was being treated with bedside debridement and IV antibiotics first with IV vancomycin and Zosyn, which were then transitioned to oral Augmentin after the wound grew staph aureus. Patient stated that he finished the antibiotics and was doing great until today when he started to have acute worsening of shooting electrical pain that localized in his right foot, 9 out of 10 in intensity, intermittent, without any associated subjective fever or shaking chills. There is also associated multiple ulcers on right whaley with pustular discharge, foul smelling, and surrounding erythema. He returned to our ED for reevaluation today. Vital signs significant for mild tachycardia with heart rate up to the 100s, leukocytosis with WBC 16.6, ESR 67, CRP 9.70, procalcitonin 0.16, and serum lactic acid 0.9. CT of the right leg showing large open wound in the mid whaley with underlying abscess. Normal tibia-fibula without evidence of osteomyelitis. Constitutional Constitutional: Absent chills, excessive sweating, fatigue, fever(s) or weakness EENT Eyes: Absent blurry vision, change in vision, loss of vision or other visual disturbances Ears: Absent decreased hearing or tinnitus Nose, mouth and throat: Absent abnormal hearing, dry mouth, headache(s), nasal congestion or sore throat Cardiovascular Cardiovascular: Absent chest pain, chest pain at rest, edema, irregular heart rhythm or palpatations Respiratory Respiratory: Absent cough, dyspnea or wheezing Gastrointestinal Gastrointestinal: Absent abdominal pain, constipation, diarrhea, nausea or vomiting Musculoskeletal Musculoskeletal: Absent back pain, deformity, limited range of motion, muscle cramps, muscle weakness or numbness Additional comments: right foot shooting pain Integumentary Integumentary: Absent lesions, rash or wounds Neurological Neurological: Absent focal weakness, headache(s) or numbness Psychiatric Psychiatric: Absent anxiety, depression or hallucinations PFSH PFSH All Active Problems (Updated 07/12/22 @ 16:34 by Finn Mathias MD) Anemia, normocytic normochromic (Acute) Prediabetes (Acute) Cellulitis (Acute) Abscess (Acute) Hyponatremia (Acute) Hyperglycemia (Acute) Cellulitis (Acute) Sepsis (Acute) MEDS/ALLERGIES Home Medications and Allergies Home Medications Medication Instructions Recorded Confirmed Type No Known Home Meds 07/12/22 07/12/22 History Allergies Allergy/AdvReac Type Severity Reaction Status Date / Time No Known Drug Allergies Allergy Verified 07/12/22 10:56 EXAM Constitutional Vitals: Temp Pulse Resp BP Pulse Ox O2 Del Method 36.9 C 94 H 16 155/99 100 07/12/22 10:52 07/12/22 16:01 07/12/22 10:52 07/12/22 16:01 07/12/22 16:01 07/12/22 10:52 General appearance: cooperative and no acute distress Head Head exam: Present atraumatic and normocephalic Eye Eye exam: Present EOMI and PERRL ENT ENT exam: Present mucous membranes moist, normal exam and normal external ear exam Neck Neck exam: Present normal inspection; Absent lymphadenopathy, tenderness or thyromegaly Respiratory Respiratory exam: Absent accessory muscle use, respiratory distress or wheezes Cardiovascular Cardiovascular exam: Present normal rate and rhythm; Absent JVD GI/Abdominal GI/Abdominal exam: Present normal bowel sounds and soft; Absent organomegaly or tenderness Rectal Rectal exam: Present deferred Extremities Exam Extremities exam: Present full ROM, normal capillary refill and tenderness; Absent normal inspection Additional comments: 2 open wound with the greater one measuring up to 5 inches in diameter with pustular discharge, foul smelling, and surrounding erythema. Stage III. Neurological Exam Neurological exam: Present alert, CN II-XII intact and oriented X3; Absent motor sensory deficit Psychiatric Psychiatric exam: Present normal affect and normal mood; Absent anxious or depressed Skin Skin exam: Present dry and erythema; Absent intact Additional comments: 2 open wound with the greater one measuring up to 5 inches in diameter with pustular discharge, foul smelling, and surrounding erythema. Stage III. DATA Data Completed and Pending Labs: Labs from last 24 hours 07/12/22 07/12/22 07/12/22 11:41 11:41 11:41 WBC RBC Hgb Hct POC Hct 33.0 L MCV MCH MCHC RDW Plt Count MPV Immature Gran % (Auto) Neut % (Auto) Lymph % (Auto) [place] % (Auto) Eos % (Auto) Baso % (Auto) Lymph # (Auto) [place] # (Auto) Eos # (Auto) Baso # (Auto) Immature Gran # Absolute Neutrophils ESR VBG Lactic Acid POC Sodium 133 POC Potassium 3.9 POC Chloride 98 POC Total CO2 23.0 POC BUN 15 POC Creatinine 1.3 H POC Glucose 142 H POC WB Ioniz Calcium 1.10 L C-Reactive Protein 9.70 H Procalcitonin 0.16 H 07/12/22 07/12/22 11:41 11:41 WBC 16.6 H RBC 3.59 L Hgb 10.9 L Hct 33.6 L POC Hct MCV 93.6 MCH 30.4 MCHC 32.4 RDW 12.2 Plt Count 427 MPV 8.9 Immature Gran % (Auto) 0.6 H Neut % (Auto) 72.3 Lymph % (Auto) 16.8 [place] % (Auto) 9.5 Eos % (Auto) 0.4 Baso % (Auto) 0.4 Lymph # (Auto) 2.78 [place] # (Auto) 1.58 H Eos # (Auto) 0.07 Baso # (Auto) 0.06 Immature Gran # 0.10 H Absolute Neutrophils 12.00 H ESR 67 H VBG Lactic Acid 0.9 POC Sodium POC Potassium POC Chloride POC Total CO2 POC BUN POC Creatinine POC Glucose POC WB Ioniz Calcium C-Reactive Protein Procalcitonin A/P Assessment and plan (1) Cellulitis: Status: Acute (2) Abscess: Status: Acute (3) Sepsis: Status: Acute Qualifiers: Sepsis acute organ dysfunction status: without acute organ dysfunction Sepsis type: sepsis due to unspecified organism Qualified Code(s): A41.9 - Sepsis, unspecified organism (4) Prediabetes: Status: Acute (5) Anemia, normocytic normochromic: Status: Acute Sepsis Sepsis Identified: Yes Time Zero: . Narrative A/P Narrative: Assessment and Plans: 1. Clinical sepsis associated with right lower leg/right foot cellulitis with underlying abscess(es): Inpatient med surg General surgeon Dr. Read for clinical debridement Blood culture Wound culture Intraoperative wound culture MRSA screening cbc w/ auto diff in the morning to trend WBC Tylenol Oxycodone Dilaudid IV Vancomycin Zosyn 2L NS bolus followed by NS@100cc/hr Physical therapy 2. Normocytic normochromic anemia: cbc w/ auto diff in the morning to trend H/H 3. Prediabetes: HgA1c 6.3 Hold any oral hypoglycemics SSI q6hr Accu Chek q6hr Hypoglycemia protocol NPO for the planned surgery GI ppx: not currently indicated DVT ppx: SCDs Code status: Full Prognosis: guarded Disposition: inpatient med surg; PT Time Spent With Patient Time: Total time spent is greater than 50% in coordination of care (as documented) at patient's floor/unit and/or counseling patient: Total time spent with greater than 50% in coordination of care (as documented) at patient's floor/unit and/or counseling patient:: Greater than 70 minutes
[2022-07-12] MEDS ORDERED: PROPOFOL 200 MG/20 ML VIAL IV ONE (17:38)
[2022-07-12] MEDS ORDERED: GLYCOPYRROLATE 0.2 MG/ML VIAL IV ONE (17:38)
[2022-07-12] MEDS ORDERED: HYDROmorphone 1 MG/ML SYRINGE ONE (17:38)
[2022-07-12] MEDS ORDERED: fentaNYL 100 MCG/2 ML VIAL IV ONE (17:38)
[2022-07-12] MEDS ORDERED: MIDAZOLAM 5 MG/5 ML VIAL ONE (17:38)
[2022-07-12] MEDS ORDERED: LIDOCAINE HCL/PF 100 MG/5 ML SYRINGE IV ONE (17:38)
[2022-07-12] MEDS ORDERED: ONDANSETRON 4 MG/2 ML VIAL ONE (17:38)
[2022-07-12] MEDS ORDERED: MAGNESIUM SULFATE 2 GM/50 ML BAG IV ONE (17:38)
[2022-07-12] MEDS ORDERED: DEXAMETHASONE 10 MG/ML VIAL ONE (17:38)
[2022-07-12] MEDS ORDERED: KETAMINE 50 MG/ML Syringe (ANEST) IV ONE (17:38)
[2022-07-12] MEDS ORDERED: LACTATED RINGERS 250 ML IV PRN (18:05)
[2022-07-12] MEDS ORDERED: NALOXONE HCL 0.4 MG/ML VIAL IV PRN (18:05)
[2022-07-12] MEDS ORDERED: LABETALOL 5 MG/ML ML IV PRN (18:05)
[2022-07-12] MEDS ORDERED: ONDANSETRON 4 MG/2 ML VIAL IV PRN ×2 (18:05→20:06)
[2022-07-12] MEDS ORDERED: ACETAMINOPHEN 1,000 MG/100 ML BAG IV ONE (18:05)
[2022-07-12] MEDS ORDERED: HYDROmorphone 0.5 MG/0.5 ML SYRINGE IV PRN (18:05)
[2022-07-12] MEDS ORDERED: FLUMAZENIL 0.1 MG/ML ML IV PRN (18:05)
[2022-07-12] MEDS ORDERED: IPRATROPIUM/ALBUTEROL 3 ML AMPUL.NEB NEB PRN ×2 (18:05→20:06)
[2022-07-12] MEDS ORDERED: fentaNYL 100 MCG/2 ML VIAL IV PRN (18:05)
[2022-07-12] MEDS ORDERED: METOPROLOL TARTRATE 5 MG/5 ML VIAL IV PRN (18:05)
[2022-07-12] MEDS ORDERED: METHOCARBAMOL 1,000 MG/10 ML VIAL IV PRN (18:05)
[2022-07-12] MEDS ORDERED: LACTATED RINGERS 1,000 ML IV SCH (18:15)
[2022-07-12] MEDS ORDERED: ACETAMINOPHEN 325 MG TABLET PO PRN (20:06)
[2022-07-12] MEDS ORDERED: VANCOMYCIN PER PHARMACY IV ONE (20:06)
[2022-07-12] MEDS ORDERED: DEXTROSE 31 GM ORAL.SUSP PO PRN (20:06)
[2022-07-12] MEDS ORDERED: DEXTROSE 50% 50 ML VIAL IV PRN (20:06)
--- NOTE | 2022-07-12 20:39 | Brief Operative Note ---
Brief Operative Note Date of procedure: 07/12/22 Pre-op diagnosis: Necrotizing Soft Tissue Infection Right Lower Leg Post-op diagnosis: same Procedure: Exploration, Debridement, Washout and Drainage of Right Lower Leg Necrotizing Soft Tissue Infection Grafts/Implants: No Anesthesia: GETA Findings: Necrotizing Soft Tissue Infection with extensive areas of necrotic slough and purulence extending down to the level of the muscular fascia Complications: none Surgeon: Calvin Read Estimated blood loss (cc): 100 Specimens Removed/Pathology: other (tissue and fluid sent to pathology and to the lab for gram stain and culture ) Condition: stable Disposition: PACU
[2022-07-12] MEDS: 0.9 % SODIUM CHLORIDE 1,000 ML IV SCH (21:27)
[2022-07-12] MEDS: INSULIN LISPRO 1 UNIT/0.01 ML UNIT SQ SCH (21:28)
[2022-07-12] MEDS: 0.9 % SODIUM CHLORIDE 10 ML SYRINGE IV SCH (21:29)
[2022-07-12] MEDS: SENNOSIDES 1 TABLET PO SCH (21:41)
[2022-07-12] MEDS: DOCUSATE SODIUM 100 MG CAPSULE PO SCH (21:41)
[2022-07-12] MEDS: PIPERACILLIN SODIUM/TAZOBACTAM 3.375 GM in DEXTROSE 5% IN WATER 50 ML IV SCH (23:23)
[2022-07-13] MEDS: VANCOMYCIN 1,500 MG in 0.9 % SODIUM CHLORIDE 500 ML IV SCH ×3 (00:15→21:04)
[2022-07-13] MEDS: PIPERACILLIN SODIUM/TAZOBACTAM 3.375 GM in DEXTROSE 5% IN WATER 50 ML IV SCH ×3 (05:14→17:15)
[2022-07-13] MEDS: 0.9 % SODIUM CHLORIDE 10 ML SYRINGE IV SCH ×3 (05:15→21:05)
[2022-07-13] MEDS ORDERED: VANCOMYCIN PER PHARMACY IV SCH (06:00)
[2022-07-13] MEDS: INSULIN LISPRO 1 UNIT/0.01 ML UNIT SQ SCH ×4 (07:37→21:08)
--- NOTE | 2022-07-13 08:41 | EKG ---
[facility] Test Date: 2022-07-12 Pat Name: Samir Montes Department: ED Room: Gender: Male Sander Hand: : 1970 Requested By: Jose Alexandra Order Number: [id number] Reading MD: Alexis Khanna M.D. Measurements Intervals [place] Rate: 85 P: 48 ME: 163 QRS: 47 QRSD: 105 T: 40 QT: 429 QTc: 511 Interpretive Statements Sinus rhythm Prolonged QT interval Electronically Signed On 07-13-2022 8:40:57 PDT by Alexis Khanna M.D. /store/[email or web address]/[id number]
[2022-07-13] MEDS: 0.9 % SODIUM CHLORIDE 1,000 ML IV SCH ×3 (08:42→21:04)
[2022-07-13] MEDS: DOCUSATE SODIUM 100 MG CAPSULE PO SCH ×2 (08:47→21:05)
[2022-07-13] MEDS: MUPIROCIN OINT 2% 22GM NARES SCH ×2 (08:47→21:05)
[2022-07-13 08:51] LABS: Basophils # (Auto) 0.01 K/mcL (0.00-0.30); Basophils % (Auto) 0.1 % (0.0-2.0); Eosinophils # (Auto) 0 K/mcL (0.00-0.70); Eosinophils % (Auto) 0 % (0.0-7.0); Hematocrit 32.9 % (40.1-51.0); Hemoglobin 10.5 g/dL (13.7-17.5); Lymphocytes # (Auto) 1.27 K/mcL (1.50-4.80); Lymphocytes % (Auto) 10.9 % (15.5-49.0); Mean Cell Volume 95.4 fL (80.0-100.0); Mean Corpuscular HGB Conc 31.9 g/dL (31.0-36.0); Mean Platelet Volume 8.8 fL (7.4-10.4); Monocytes # (Auto) 0.21 K/mcL (0.10-0.90); Monocytes % (Auto) 1.8 % (1.0-12.0); Neutrophils % (Auto) 86.9 % (38.0-78.0); Platelet Count 395 K/mcL (140-440); RBC 3.45 M/mcL (4.63-6.08); Red Cell Distribution Width 12.1 % (11.5-14.5); WBC 11.7 K/mcL (4.5-11.0)
[2022-07-13 08:53] LABS: Blood Urea Nitrogen 13 mg/dL (6-20); Calcium 8.2 mg/dL (8.6-10.4); Carbon Dioxide 23 mmol/L (22-30); Chloride 103 mmol/L (96-108); Glomerular Filtration Rate 97; Glucose 152 mg/dL (70-105)
--- NOTE | 2022-07-13 11:15 | Internal Med Progress Note ---
SUBJECTIVE Subjective Patient information: Note initiated : 07/13/22 at 11:11 am Service Date, if different from initiated Date: [] Patient: Samir Montes 51 y/o M admitted on 07/12/22 for wound to right leg. Chief Complaint: [] Interval history: Mr. Montes is a 51 year old M history of prediabetes, recently admitted to our facility from June 11 to June 16 with right leg cellulitis, presenting with worsening of right leg and foot wound and pain. He was admitted from June 11 to June 16 in our facility for right leg cellulitis, and was being treated with bedside debridement and IV antibiotics first with IV vancomycin and Zosyn, which were then transitioned to oral Augmentin after the wound grew staph aureus. Patient stated that he finished the antibiotics and was doing great until today when he started to have acute worsening of shooting electrical pain that localized in his right foot, 9 out of 10 in intensity, intermittent, w ithout any associated subjective fever or shaking chills. There is also associated multiple ulcers on right whaley with pustular discharge, foul smelling, and surrounding erythema. He returned to our ED for reevaluation today. Vital signs significant for mild tachycardia with heart rate up to the 100s, leukocytosis with WBC 16.6, ESR 67, CRP 9.70, procalcitonin 0.16, and serum lactic acid 0.9. CT of the right leg showing large open wound in the mid whaley with underlying abscess. Normal tibia-fibula without evidence of osteomyelitis. 07/13: Status post expirations, debridement, washout, intraoperative wound cultures of the right lower leg wounds by general surgeon Dr. Read 07/12. All cultures no growth today. Afebrile overnight. Patient is currently denies any right leg pain. He denies any shortness of breath. He denies any fever, chills, or diaphoresis. Continue broad-spectrum IV antibiotics with vancomycin and Zosyn. Wound VAC pending later this afternoon. Constitutional Vitals: Vital Signs Temp Pulse Resp BP Pulse Ox O2 Del Method O2 Flow Rate 36.2 C 90 18 130/76 99 3 07/13/22 07:30 07/13/22 07:30 07/13/22 07:30 07/13/22 07:30 07/13/22 08:45 07/13/22 08:45 07/13/22 08:45 Period Temp Pulse Resp BP Sys/Wang Pulse Ox O2 Del Method O2 Flow Rate Last 24 Hr 36.2 C-37.1 C 73-103 8-22 112-155/67-101 90-100 Nasal Cannula- Simple Mask 2-6 Intake and Output 07/12/22 07/13/22 07/13/22 21:59 05:59 13:59 Intake Total 4150 1000 1000 Output Total 30 1725 775 Balance 4120 -725 225 Weight 135.624 kg Intake & Output: Intake & Output 07/12/22 07/13/22 07/13/22 21:59 05:59 13:59 Intake Total 4150 1000 1000 Output Total 30 1725 775 Balance 4120 -725 225 Weight 135.624 kg Intake: IV 2650 600 1000 Sodium Chloride 0.9% 1,000 ml @ 2000 1000 100 mls/hr IV .Q10H [facility] Rx#: [id number] Zosyn 3.375 gm In Dextrose 5% 100 in Water 50 ml @ 100 mls/hr IV Q6H [facility] Rx#:[id number] Zosyn 4.5 gm In Dextrose 5% in 50 Water 50 ml @ 100 mls/hr IV ONCE ONE Rx#:[id number] Vancomycin 1,500 mg In Sodium 500 500 Chloride 0.9% 500 ml @ 333.3 mls/hr IV Q12H [facility] Rx#: [id number] Oral 400 IV - Manual Only 1500 Output: Void Amount 1725 775 Estimated Blood Loss 30 Other: Meal Breakfast Percent of Meal Consumed 100% Feeding Ability Independent Urine Appearance Clear Clear Clear Urine Color Dark Yellow Bright Yellow Bright Yellow Urine Odor Normal Head Head exam: Present atraumatic and normal inspection Eye Eye exam: Present normal appearance ENT ENT exam: Present mucous membranes moist, normal exam and normal external ear exam Neck Neck exam: Present normal inspection Respiratory Respiratory exam: Present normal respiratory exam Cardiovascular Cardiovascular exam: Present normal rate and rhythm GI/Abdominal GI/Abdominal exam: Present normal bowel sounds Extremities Exam Extremities exam: Present full ROM and tenderness; Absent normal inspection Additional comments: Right lower leg wounds covered by surgical dressings. Back Exam Back exam: Present normal inspection Neurological Exam Neurological exam: Present alert and oriented X3 Skin Skin exam: Present warm; Absent intact Additional comments: Right lower leg wounds covered by surgical dressings. OBJ DATA Labs CBC & Chem 7: 07/13/22 05:36 07/13/22 05:36 Labs: Abnormal Lab Results 07/13/22 07/13/22 07/12/22 05:36 05:36 11:41 WBC 11.7 H RBC 3.45 L Hgb 10.5 L Hct 32.9 L POC Hct 33.0 L Immature Gran % (Auto) Neut % (Auto) 86.9 H Lymph % (Auto) 10.9 L Lymph # (Auto) 1.27 L [place] # (Auto) Immature Gran # Absolute Neutrophils 10.14 H ESR POC Creatinine 1.3 H Glucose 152 H POC Glucose 142 H Calcium 8.2 L POC WB Ioniz Calcium 1.10 L C-Reactive Protein Procalcitonin 07/12/22 07/12/22 07/12/22 11:41 11:41 11:41 WBC 16.6 H RBC 3.59 L Hgb 10.9 L Hct 33.6 L POC Hct Immature Gran % (Auto) 0.6 H Neut % (Auto) Lymph % (Auto) Lymph # (Auto) [place] # (Auto) 1.58 H Immature Gran # 0.10 H Absolute Neutrophils 12.00 H ESR 67 H POC Creatinine Glucose POC Glucose Calcium POC WB Ioniz Calcium C-Reactive Protein 9.70 H Procalcitonin 0.16 H Meds: Medications Acetaminophen (Acetaminophen 325 Mg Tablet) 650 mg PO Q6HP PRN; Protocol PRN Reason: Per Pain Protocol/Fever > 101 Albuterol/Ipratropium (Ipratropium/Albuterol 3 Ml Ampul.Neb) 3 ml NEB Q4HRT PRN PRN Reason: Wheezing Dextrose (Dextrose 50% 50 Ml Vial) 0 ml IV UD PRN PRN Reason: Per Sliding Scale Diagnostic Test (Pha) (Accu-Chek 1 Each Strip) 1 each FS ACHS [facility] Last Admin: 07/13/22 07:36 Dose: 1 each Docusate Sodium (Docusate Sodium 100 Mg Capsule) 100 mg PO BID [facility] Last Admin: 07/13/22 08:47 Dose: Not Given Glucose (Dextrose 31 Gm Oral.Susp) 15 gm PO PRN PRN PRN Reason: Hypoglycemia Hydromorphone HCl (Hydromorphone 0.5 Mg/0.5 Ml Syringe) 0.5 mg IV Q2HP PRN; Protocol PRN Reason: Per Pain Protocol Sodium Chloride (Sodium Chloride 0.9%) 1,000 mls @ 100 mls/hr IV .Q10H [facility] Last Admin: 07/13/22 08:42 Dose: 100 mls/hr Piperacillin Sod/Tazobactam (Sod 3.375 gm/ Dextrose) 50 mls @ 100 mls/hr IV Q6H [facility]; Protocol Last Infusion: 07/13/22 05:45 Dose: Infused Vancomycin HCl 1,500 mg/ (Sodium Chloride) 500 mls @ 333.3 mls/hr IV Q12H [facility] Last Admin: 07/13/22 08:44 Dose: 333.3 mls/hr Insulin Human Lispro (Insulin Lispro 1 Unit/0.01 Ml Unit) 0 unit SQ ACHS [facility]; Protocol Last Admin: 07/13/22 07:37 Dose: 1 unit Mupirocin (Mupirocin Oint 2% 22gm) 1 dose NARES BID [facility] Last Admin: 07/13/22 08:47 Dose: 1 dose Ondansetron HCl (Ondansetron 4 Mg/2 Ml Vial) 4 mg IV Q6HP PRN PRN Reason: Nausea And Vomiting Oxycodone HCl (Oxycodone Hcl 5 Mg Tablet) 5 mg PO Q4HP PRN; Protocol PRN Reason: Per Pain Protocol Senna (Sennosides 1 Tablet) 2 tab PO HS [facility] Last Admin: 07/12/22 21:41 Dose: 2 tab Sodium Chloride (0.9 % Sodium Chloride 10 Ml Syringe) 10 ml IV Q8 [facility] Last Admin: 07/13/22 05:15 Dose: Not Given Trazodone HCl (Trazodone Hcl 50 Mg Tablet) 25 mg PO HSP PRN PRN Reason: Insomnia Vancomycin HCl (Vancomycin Per Pharmacy) 1 order IV UD [facility]; Protocol A/P Assessment and plan (1) Cellulitis: Status: Acute (2) Abscess: Status: Acute (3) Sepsis: Status: Acute Qualifiers: Sepsis acute organ dysfunction status: without acute organ dysfunction Sepsis type: sepsis due to unspecified organism Qualified Code(s): A41.9 - Se psis, unspecified organism (4) Prediabetes: Status: Acute (5) Anemia, normocytic normochromic: Status: Acute Narrative A/P Narrative: Assessment and Plans: 1. Clinical sepsis associated with right lower leg/right foot cellulitis with underlying abscess(es): Inpatient med surg Status post expirations, debridement, washout, intraoperative wound cultures of the right lower leg wounds by general surgeon Dr. Read 07/12. Wound VAC pending later this afternoon. Blood culture, no growth to date Wound culture, no growth to date Intraoperative wound culture, no growth to date MRSA screening, positive cbc w/ auto diff in the morning to trend WBC Tylenol Oxycodone Dilaudid IV Vancomycin Zosyn 2L NS bolus followed by NS@100cc/hr Physical therapy 2. Normocytic normochromic anemia: cbc w/ auto diff in the morning to trend H/H 3. Prediabetes: HgA1c 6.3 Hold any oral hypoglycemics SSI q6hr Accu Chek q6hr Hypoglycemia protocol NPO for the planned surgery GI ppx: not currently indicated DVT ppx: Lovenox Code status: Full Prognosis: Stable Disposition: inpatient med surg; PT Time Spent With Patient Time: Total time spent is greater than 50% in coordination of care (as documented) at patient's floor/unit and/or counseling patient: Total time spent with greater than 50% in coordination of care (as documented) at patient's floor/unit and/or counseling patient:: 25 - 35 minutes QUALITY VTE Deep Vein Thrombosis/Pulmonary Embolism Present on Admission: No
--- NOTE | 2022-07-13 11:33 | General Surgery Progress Note ---
SUBJECTIVE Subjective Patient information: Note initiated : 07/13/22 at 11:30 am Service Date, if different from initiated Date: [] Patient: Samir Montes 51 y/o M admitted on 07/12/22 for wound to right leg. Chief Complaint: [] Post exploration and debridement of Right Lower Leg Necrotizing Soft Tissue Wound last night. Pain is much improved and essentially resolved. Constitutional Vitals: Vital Signs Temp Pulse Resp BP Pulse Ox O2 Del Method O2 Flow Rate 97.2 F 90 18 130/76 99 3 07/13/22 07:30 07/13/22 07:30 07/13/22 07:30 07/13/22 07:30 07/13/22 08:45 07/13/22 08:45 07/13/22 08:45 Period Temp Pulse Resp BP Sys/Wang Pulse Ox O2 Del Method O2 Flow Rate Last 24 Hr 97.2 F-98.8 F 73-103 8-22 112-155/67-101 90-100 Nasal Cannula- Simple Mask 2-6 Intake and Output 07/12/22 07/13/22 07/13/22 21:59 05:59 13:59 Intake Total 4150 1000 1500 Output Total 30 1725 775 Balance 4120 -725 725 Weight 299 lb Intake & Output: Intake & Output 07/12/22 07/13/22 07/13/22 21:59 05:59 13:59 Intake Total 4150 1000 1500 Output Total 30 1725 775 Balance 4120 -725 725 Weight 299 lb Intake: IV 2650 600 1500 Sodium Chloride 0.9% 1,000 ml @ 2000 1000 100 mls/hr IV .Q10H [facility] Rx#: [id number] Zosyn 3.375 gm In Dextrose 5% 100 in Water 50 ml @ 100 mls/hr IV Q6H [facility] Rx#:[id number] Zosyn 4.5 gm In Dextrose 5% in 50 Water 50 ml @ 100 mls/hr IV ONCE ONE Rx#:[id number] Vancomycin 1,500 mg In Sodium 500 500 500 Chloride 0.9% 500 ml @ 333.3 mls/hr IV Q12H [facility] Rx#: [id number] Oral 400 IV - Manual Only 1500 Output: Void Amount 1725 775 Estimated Blood Loss 30 Other: Meal Breakfast Percent of Meal Consumed 100% Feeding Ability Independent Urine Appearance Clear Clear Clear Urine Color Dark Yellow Bright Yellow Bright Yellow Urine Odor Normal Exam: conversant, non toxic, NAD Extremities Exam Additional comments: Right Leg Dressing is in place without swelling or drainage A/P Assessment and plan (1) Leg wound, right: Assessment and plan: Necrotizing Soft Tissue Infection of the Right Lower Leg Doing Well post debridement VAC application today Continue IV ABs and check pending cultures Status: Acute Time Spent With Patient Time: Total time spent is greater than 50% in coordination of care (as documented) at patient's floor/unit and/or counseling patient:
[2022-07-13] MEDS: oxyCODONE HCL 5 MG TABLET PO PRN (14:04)
[2022-07-13] MEDS: HYDROmorphone 0.5 MG/0.5 ML SYRINGE IV PRN (15:08)
[2022-07-13] MEDS: SENNOSIDES 1 TABLET PO SCH (21:05)
[2022-07-14] MEDS: PIPERACILLIN SODIUM/TAZOBACTAM 3.375 GM in DEXTROSE 5% IN WATER 50 ML IV SCH ×5 (00:22→23:53)
[2022-07-14] MEDS: 0.9 % SODIUM CHLORIDE 10 ML SYRINGE IV SCH ×3 (05:45→22:15)
[2022-07-14] MEDS: 0.9 % SODIUM CHLORIDE 1,000 ML IV SCH ×2 (06:39→09:54)
[2022-07-14 06:45] LABS: Basophils # (Auto) 0.02 K/mcL (0.00-0.30); Basophils % (Auto) 0.1 % (0.0-2.0); Eosinophils # (Auto) 0.01 K/mcL (0.00-0.70); Eosinophils % (Auto) 0.1 % (0.0-7.0); Hematocrit 32.3 % (40.1-51.0); Hemoglobin 10.4 g/dL (13.7-17.5); Lymphocytes # (Auto) 2.16 K/mcL (1.50-4.80); Lymphocytes % (Auto) 15.9 % (15.5-49.0); Mean Cell Volume 95.6 fL (80.0-100.0); Mean Corpuscular HGB Conc 32.2 g/dL (31.0-36.0); Mean Platelet Volume 9.1 fL (7.4-10.4); Monocytes # (Auto) 0.77 K/mcL (0.10-0.90); Monocytes % (Auto) 5.7 % (1.0-12.0); Neutrophils % (Auto) 77.5 % (38.0-78.0); Platelet Count 435 K/mcL (140-440); RBC 3.38 M/mcL (4.63-6.08); Red Cell Distribution Width 12.1 % (11.5-14.5); WBC 13.6 K/mcL (4.5-11.0)
[2022-07-14] MEDS: INSULIN LISPRO 1 UNIT/0.01 ML UNIT SQ SCH ×4 (06:48→22:14)
[2022-07-14 06:56] LABS: Blood Urea Nitrogen 14 mg/dL (6-20); Calcium 8.1 mg/dL (8.6-10.4); Carbon Dioxide 23 mmol/L (22-30); Chloride 107 mmol/L (96-108); Glomerular Filtration Rate 101; Glucose 111 mg/dL (70-105)
--- NOTE | 2022-07-14 09:04 | General Surgery Progress Note ---
SUBJECTIVE Subjective Patient information: Note initiated : 07/14/22 at 9:02 am Service Date, if different from initiated Date: [] Patient: Samir Montes 51 y/o M admitted on 07/12/22 for wound to right leg. Chief Complaint: [] Resting comfortably this am with VAC in place Constitutional Vitals: Vital Signs Temp Pulse Resp BP Pulse Ox O2 Del Method O2 Flow Rate 98.3 F 85 18 138/85 96 3 07/14/22 06:41 07/14/22 06:41 07/14/22 07:00 07/14/22 06:41 07/14/22 07:00 07/14/22 07:00 07/13/22 08:45 Period Temp Pulse Resp BP Sys/Wang Pulse Ox O2 Del Method O2 Flow Rate Last 24 Hr 97.1 F-98.6 F 74-93 18-20 105-138/62-85 96-99 Room Air-Room Air Intake and Output 07/13/22 07/14/22 07/14/22 21:59 05:59 13:59 Intake Total 1050 450 50 Output Total 750 Balance 300 450 50 Weight 306 lb Intake & Output: Intake & Output 07/13/22 07/14/22 07/14/22 21:59 05:59 13:59 Intake Total 1050 450 50 Output Total 750 Balance 300 450 50 Weight 306 lb Intake: IV 1050 50 50 Sodium Chloride 0.9% 1,000 ml @ 1000 100 mls/hr IV .Q10H [facility] Rx#: [id number] Zosyn 3.375 gm In Dextrose 5% 50 50 50 in Water 50 ml @ 100 mls/hr IV Q6H [facility] Rx#:[id number] Oral 400 Output: Void Amount 750 Other: Urine Appearance Clear Clear Urine Color Yellow Bright Yellow # Voids 1 Exam: Resting comfortably with VAC in place Extremities Exam Additional comments: VAC in place and holding suction without issue A/P Assessment and plan (1) Leg wound, right: Status: Acute Plan Post Debridement of Necrotizing Soft Tissue Infection of the Right Lower Leg Doing Well with VAC in place Will change Saturday Continue IV ABs Time Spent With Patient Time: Total time spent is greater than 50% in coordination of care (as documented) at patient's floor/unit and/or counseling patient:
[2022-07-14] MEDS: MUPIROCIN OINT 2% 22GM NARES SCH ×2 (09:11→22:14)
[2022-07-14] MEDS: ENOXAPARIN 40 MG/0.4 ML SYRINGE SQ SCH (09:11)
[2022-07-14] MEDS: DOCUSATE SODIUM 100 MG CAPSULE PO SCH ×2 (09:11→22:14)
[2022-07-14] MEDS: VANCOMYCIN 1,500 MG in 0.9 % SODIUM CHLORIDE 500 ML IV SCH ×2 (09:54→22:12)
--- NOTE | 2022-07-14 10:35 | Internal Med Progress Note ---
SUBJECTIVE Subjective Patient information: Note initiated : 07/14/22 at 10:33 am Service Date, if different from initiated Date: [] Patient: Samir Montes 51 y/o M admitted on 07/12/22 for wound to right leg. Chief Complaint: [] Interval history: Mr. Montes is a 51 year old M history of prediabetes, recently admitted to our facility from June 11 to June 16 with right leg cellulitis, presenting with worsening of right leg and foot wound and pain. He was admitted from June 11 to June 16 in our facility for right leg cellulitis, and was being treated with bedside debridement and IV antibiotics first with IV vancomycin and Zosyn, which were then transitioned to oral Augmentin after the wound grew staph aureus. Patient stated that he finished the antibiotics and was doing great until today when he started to have acute worsening of shooting electrical pain that localized in his right foot, 9 out of 10 in intensity, intermittent, w ithout any associated subjective fever or shaking chills. There is also associated multiple ulcers on right whaley with pustular discharge, foul smelling, and surrounding erythema. He returned to our ED for reevaluation today. Vital signs significant for mild tachycardia with heart rate up to the 100s, leukocytosis with WBC 16.6, ESR 67, CRP 9.70, procalcitonin 0.16, and serum lactic acid 0.9. CT of the right leg showing large open wound in the mid whaley with underlying abscess. Normal tibia-fibula without evidence of osteomyelitis. 07/13: Status post expirations, debridement, washout, intraoperative wound cultures of the right lower leg wounds by general surgeon Dr. Read 07/12. All cultures no growth today. Afebrile overnight. Patient is currently denies any right leg pain. He denies any shortness of breath. He denies any fever, chills, or diaphoresis. Continue broad-spectrum IV antibiotics with vancomycin and Zosyn. Wound VAC pending later this afternoon. 07/14: Status post right lower leg wound VAC placement on July 13. Afebrile overnight. WBC 13.6. All cultures no growth today. Patient denies any fever or chills or diaphoresis. He denies any right lower leg pain. Continue wound VAC care. Continue broad-spectrum IV antibiotics with vancomycin and Zosyn. Continue physical therapy. Constitutional Vitals: Vital Signs Temp Pulse Resp BP Pulse Ox O2 Del Method O2 Flow Rate 36.8 C 85 18 138/85 96 3 07/14/22 06:41 07/14/22 06:41 07/14/22 07:00 07/14/22 06:41 07/14/22 07:00 07/14/22 07:00 07/13/22 08:45 Period Temp Pulse Resp BP Sys/Wang Pulse Ox O2 Del Method O2 Flow Rate Last 24 Hr 36.2 C-37.0 C 74-93 18-20 105-138/62-85 96-99 Room Air-Room Air Intake and Output 07/13/22 07/14/22 07/14/22 21:59 05:59 13:59 Intake Total 4772 762 4749 Output Total 750 750 Balance 823 311 9357 Weight 138.799 kg Intake & Output: Intake & Output 07/13/22 07/14/22 07/14/22 21:59 05:59 13:59 Intake Total 3036 139 1511 Output Total 750 750 Balance 094 972 6164 Weight 138.799 kg Intake: IV 1050 50 1477 Sodium Chloride 0.9% 1,000 ml @ 1000 1000 100 mls/hr IV .Q10H [facility] Rx#: [id number] Zosyn 3.375 gm In Dextrose 5% 50 50 50 in Water 50 ml @ 100 mls/hr IV Q6H [facility] Rx#:[id number] Vancomycin 1,500 mg In Sodium 427 Chloride 0.9% 500 ml @ 333.3 mls/hr IV Q12H [facility] Rx#: [id number] Oral 400 360 Output: Void Amount 750 750 Other: Meal Breakfast Percent of Meal Consumed 100% Feeding Ability Independent Urine Appearance Clear Clear Clear Urine Color Yellow Bright Yellow Pale # Voids 1 Head Head exam: Present atraumatic and normal inspection Eye Eye exam: Present normal appearance ENT ENT exam: Present mucous membranes moist, normal exam and normal external ear exam Neck Neck exam: Present normal inspection Respiratory Respiratory exam: Present normal respiratory exam Cardiovascular Cardiovascular exam: Present normal rate and rhythm GI/Abdominal GI/Abdominal exam: Present normal bowel sounds Extremities Exam Extremities exam: Present full ROM; Absent normal inspection Additional comments: Right lower leg wound vac in place Back Exam Back exam: Present normal inspection Neurological Exam Neurological exam: Present alert and oriented X3 Skin Skin exam: Present erythema and warm; Absent intact Additional comments: Right lower leg wound vac in place OBJ DATA Labs CBC & Chem 7: 07/14/22 05:48 07/14/22 05:48 Labs: Abnormal Lab Results 07/14/22 07/14/22 07/13/22 05:48 05:48 05:36 WBC 13.6 H RBC 3.38 L Hgb 10.4 L Hct 32.3 L POC Hct Immature Gran % (Auto) 0.7 H Neut % (Auto) Lymph % (Auto) Lymph # (Auto) [place] # (Auto) Immature Gran # 0.10 H Absolute Neutrophils 10.52 H ESR Anion Gap 7.0 L POC Creatinine Glucose 111 H 152 H POC Glucose Calcium 8.1 L 8.2 L POC WB Ioniz Calcium C-Reactive Protein Procalcitonin 07/13/22 07/12/22 07/12/22 05:36 11:41 11:41 WBC 11.7 H RBC 3.45 L Hgb 10.5 L Hct 32.9 L POC Hct 33.0 L Immature Gran % (Auto) Neut % (Auto) 86.9 H Lymph % (Auto) 10.9 L Lymph # (Auto) 1.27 L [place] # (Auto) Immature Gran # Absolute Neutrophils 10.14 H ESR Anion Gap POC Creatinine 1.3 H Glucose POC Glucose 142 H Calcium POC WB Ioniz Calcium 1.10 L C-Reactive Protein 9.70 H Procalcitonin 07/12/22 07/12/22 11:41 11:41 WBC 16.6 H RBC 3.59 L Hgb 10.9 L Hct 33.6 L POC Hct Immature Gran % (Auto) 0.6 H Neut % (Auto) Lymph % (Auto) Lymph # (Auto) [place] # (Auto) 1.58 H Immature Gran # 0.10 H Absolute Neutrophils 12.00 H ESR 67 H Anion Gap POC Creatinine Glucose POC Glucose Calcium POC WB Ioniz Calcium C-Reactive Protein Procalcitonin 0.16 H Meds: Medications Acetaminophen (Acetaminophen 325 Mg Tablet) 650 mg PO Q6HP PRN; Protocol PRN Reason: Per Pain Protocol/Fever > 101 Albuterol/Ipratropium (Ipratropium/Albuterol 3 Ml Ampul.Neb) 3 ml NEB Q4HRT PRN PRN Reason: Wheezing Dextrose (Dextrose 50% 50 Ml Vial) 0 ml IV UD PRN PRN Reason: Per Sliding Scale Diagnostic Test (Pha) (Accu-Chek 1 Each Strip) 1 each FS [facility] Last Admin: 07/14/22 06:47 Dose: 1 each Docusate Sodium (Docusate Sodium 100 Mg Capsule) 100 mg PO BID [facility] Last Admin: 07/14/22 09:11 Dose: 100 mg Enoxaparin Sodium (Enoxaparin 40 Mg/0.4 Ml Syringe) 40 mg SQ DAILY [facility] Last Admin: 07/14/22 09:11 Dose: 40 mg Glucose (Dextrose 31 Gm Oral.Susp) 15 gm PO PRN PRN PRN Reason: Hypoglycemia Hydromorphone HCl (Hydromorphone 0.5 Mg/0.5 Ml Syringe) 0.5 mg IV Q2HP PRN; Protocol PRN Reason: Per Pain Protocol Last Admin: 07/13/22 15:08 Dose: 0.5 mg Sodium Chloride (Sodium Chloride 0.9%) 1,000 mls @ 100 mls/hr IV .Q10H [facility] Last Admin: 07/14/22 09:54 Dose: 100 mls/hr Piperacillin Sod/Tazobactam (Sod 3.375 gm/ Dextrose) 50 mls @ 100 mls/hr IV Q6H [facility]; Protocol Last Infusion: 07/14/22 06:15 Dose: Infused Vancomycin HCl 1,500 mg/ (Sodium Chloride) 500 mls @ 333.3 mls/hr IV Q12H [facility] Last Admin: 07/14/22 09:54 Dose: 33.3 mls/hr Insulin Human Lispro (Insulin Lispro 1 Unit/0.01 Ml Unit) 0 unit SQ [facility]; Protocol Last Admin: 07/14/22 06:48 Dose: Not Given Mupirocin (Mupirocin Oint 2% 22gm) 1 dose NARES BID [facility] Last Admin: 07/14/22 09:11 Dose: 1 dose Ondansetron HCl (Ondansetron 4 Mg/2 Ml Vial) 4 mg IV Q6HP PRN PRN Reason: Nausea And Vomiting Oxycodone HCl (Oxycodone Hcl 5 Mg Tablet) 5 mg PO Q4HP PRN; Protocol PRN Reason: Per Pain Protocol Last Admin: 07/13/22 14:04 Dose: 5 mg Senna (Sennosides 1 Tablet) 2 tab PO HS [facility] Last Admin: 07/13/22 21:05 Dose: 2 tab Sodium Chloride (0.9 % Sodium Chloride 10 Ml Syringe) 10 ml IV Q8 [facility] Last Admin: 07/14/22 05:45 Dose: Not Given Trazodone HCl (Trazodone Hcl 50 Mg Tablet) 25 mg PO HSP PRN PRN Reason: Insomnia Vancomycin HCl (Vancomycin Per Pharmacy) 1 order IV UD [facility]; Protocol A/P Assessment and plan (1) Cellulitis: Status: Acute (2) Abscess: Status: Acute (3) Sepsis: Status: Acute Qualifiers: Sepsis acute organ dysfunction status: without acute organ dysfunction Sepsis type: sepsis due to unspecified organism Qualified Code(s): A41.9 - Sepsis, unspecified organism (4) Prediabetes: Status: Acute (5) Anemia, normocytic normochromic: Status: Acute Narrative A/P Narrative: Assessment and Plans: 1. Clinical sepsis associated with right lower leg/right foot cellulitis with underlying abscess(es): Inpatient med surg Status post expirations, debridement, washout, intraoperative wound cultures of the right lower leg wounds by general surgeon Dr. Read 07/12. s/p Wound VAC placement 07/13 Blood culture, no growth to date Wound culture, no growth to date Intraoperative wound culture, no growth to date MRSA screening, positive cbc w/ auto diff in the morning to trend WBC Tylenol Oxycodone Dilaudid IV Vancomycin Zosyn Saline lock Physical therapy 2. Normocytic normochromic anemia: cbc w/ auto diff in the morning to trend H/H 3. Prediabetes: HgA1c 6.3 Hold any oral hypoglycemics SSI AC HS Accu Chek AC HS Hypoglycemia protocol Diabetic diet GI ppx: not currently indicated DVT ppx: Lovenox Code status: Full Prognosis: Stable Disposition: inpatient med surg; PT Time Spent With Patient Time: Total time spent is greater than 50% in coordination of care (as documented) at patient's floor/unit and/or counseling patient: Total time spent with greater than 50% in coordination of care (as documented) at patient's floor/unit and/or counseling patient:: 25 - 35 minutes QUALITY VTE Deep Vein Thrombosis/Pulmonary Embolism Present on Admission: No
[2022-07-14] MEDS ORDERED: LORazepam 1 MG TABLET PO PRN (14:26)
--- NOTE | 2022-07-14 18:49 | Internal Med Progress Note ---
SUBJECTIVE Subjective Patient information: Note initiated : 07/14/22 at 6:46 pm Service Date, if different from initiated Date: [] Patient: Samir Montes 51 y/o M admitted on 07/12/22 for wound to right leg. Chief Complaint: [] Interval history: Mr. Montes is a 51 year old M history of prediabetes, recently admitted to our facility from June 11 to June 16 with right leg cellulitis, presenting with worsening of right leg and foot wound and pain. He was admitted from June 11 to June 16 in our facility for right leg cellulitis, and was being treated with bedside debridement and IV antibiotics first with IV vancomycin and Zosyn, which were then transitioned to oral Augmentin after the wound grew staph aureus. Patient stated that he finished the antibiotics and was doing great until today when he started to have acute worsening of shooting electrical pain that localized in his right foot, 9 out of 10 in intensity, intermittent, wi thout any associated subjective fever or shaking chills. There is also associated multiple ulcers on right whaley with pustular discharge, foul smelling, and surrounding erythema. He returned to our ED for reevaluation today. Vital signs significant for mild tachycardia with heart rate up to the 100s, leukocytosis with WBC 16.6, ESR 67, CRP 9.70, procalcitonin 0.16, and serum lactic acid 0.9. CT of the right leg showing large open wound in the mid whaley with underlying abscess. Normal tibia-fibula without evidence of osteomyelitis. 07/13: Status post expirations, debridement, washout, intraoperative wound cultures of the right lower leg wounds by general surgeon Dr. Read 07/12. All cultures no growth today. Afebrile overnight. Patient is currently denies any right leg pain. He denies any shortness of breath. He denies any fever, chills, or diaphoresis. Continue broad-spectrum IV antibiotics with vancomycin and Zosyn. Wound VAC pending later this afternoon. 07/14: Status post right lower leg wound VAC placement on July 13. Afebrile overnight. WBC 13.6. All cultures no growth today. Patient denies any fever or chills or diaphoresis. He denies any right lower leg pain. Continue wound VAC care. Continue broad-spectrum IV antibiotics with vancomycin and Zosyn. Continue physical therapy. 07/15: Patient is stable, afebrile overnight. General surgery planning to replace wound VAC tomorrow. Continue on vancomycin and Zosyn, will recheck CBC with differential tomorrow. Head: Atraumatic, normal inspection. Eyes: normal appearance, no scleral icterus. Neck: full ROM Respiratory: no respiratory distress. Cardiovascular: normal rate and rhythm, S1, S2. GI/Abdominal: soft, nontender, no guarding. Extremities: Large incision of soft tissue on anterior right leg, covered with wound VAC. Neurological: CN II-XII intact, intact motor, intact sensation. Psychiatric: normal mood. Skin: Cellulitic skin around wound of anterior right leg Constitutional Vitals: Vital Signs Temp Pulse Resp BP Pulse Ox O2 Del Method O2 Flow Rate 98.5 F 101 H 18 154/77 96 3 07/14/22 16:13 07/14/22 16:13 07/14/22 16:13 07/14/22 16:13 07/14/22 16:13 07/14/22 16:13 07/13/22 08:45 Period Temp Pulse Resp BP Sys/Wang Pulse Ox O2 Del Method O2 Flow Rate Last 24 Hr 97.8 F-99.9 F 82-104 16-20 105-155/65-93 96-98 Room Air-Room Air Intake and Output 07/14/22 07/14/22 07/14/22 05:59 13:59 21:59 Intake Total 450 1905 110 Output Total 750 725 Balance 450 1155 -615 Intake & Output: Intake & Output 07/14/22 07/14/22 07/14/22 05:59 13:59 21:59 Intake Total 450 1905 110 Output Total 750 725 Balance 450 1155 -615 Intake: IV 50 1545 50 Sodium Chloride 0.9% 1,000 ml @ 1068 100 mls/hr IV .Q10H [facility] Rx#: [id number] Zosyn 3.375 gm In Dextrose 5% 50 50 50 in Water 50 ml @ 100 mls/hr IV Q6H [facility] Rx#:[id number] Vancomycin 1,500 mg In Sodium 427 Chloride 0.9% 500 ml @ 333.3 mls/hr IV Q12H [facility] Rx#: [id number] Oral 400 360 60 Output: Void Amount 750 725 Other: Meal Breakfast Lunch Percent of Meal Consumed 100% 50% Feeding Ability Independent Independent Urine Appearance Clear Clear Clear Urine Color Bright Yellow Pale Pale Stool Size Moderate Stool Color Brown Stool Consistency Formed # Voids 1 # Bowel Movements 1 OBJ DATA Labs CBC & Chem 7: 07/14/22 05:48 07/14/22 05:48 Labs: Abnormal Lab Results 07/14/22 07/14/22 07/13/22 05:48 05:48 05:36 WBC 13.6 H RBC 3.38 L Hgb 10.4 L Hct 32.3 L POC Hct Immature Gran % (Auto) 0.7 H Neut % (Auto) Lymph % (Auto) Lymph # (Auto) [place] # (Auto) Immature Gran # 0.10 H Absolute Neutrophils 10.52 H ESR Anion Gap 7.0 L POC Creatinine Glucose 111 H 152 H POC Glucose Calcium 8.1 L 8.2 L POC WB Ioniz Calcium C-Reactive Protein Procalcitonin 07/13/22 07/12/22 07/12/22 05:36 11:41 11:41 WBC 11.7 H RBC 3.45 L Hgb 10.5 L Hct 32.9 L POC Hct 33.0 L Immature Gran % (Auto) Neut % (Auto) 86.9 H Lymph % (Auto) 10.9 L Lymph # (Auto) 1.[address] [place] # (Auto) Immature Gran # Absolute Neutrophils 10.14 H ESR Anion Gap POC Creatinine 1.3 H Glucose POC Glucose 142 H Calcium POC WB Ioniz Calcium 1.10 L C-Reactive Protein 9.70 H Procalcitonin 07/12/22 07/12/22 11:41 11:41 WBC 16.6 H RBC 3.59 L Hgb 10.9 L Hct 33.6 L POC Hct Immature Gran % (Auto) 0.6 H Neut % (Auto) Lymph % (Auto) Lymph # (Auto) [place] # (Auto) 1.58 H Immature Gran # 0.10 H Absolute Neutrophils 12.00 H ESR 67 H Anion Gap POC Creatinine Glucose POC Glucose Calcium POC WB Ioniz Calcium C-Reactive Protein Procalcitonin 0.16 H Meds: Medications Acetaminophen (Acetaminophen 325 Mg Tablet) 650 mg PO Q6HP PRN; Protocol PRN Reason: Per Pain Protocol/Fever > 101 Albuterol/Ipratropium (Ipratropium/Albuterol 3 Ml Ampul.Neb) 3 ml NEB Q4HRT PRN PRN Reason: Wheezing Dextrose (Dextrose 50% 50 Ml Vial) 0 ml IV UD PRN PRN Reason: Per Sliding Scale Diagnostic Test (Pha) (Accu-Chek 1 Each Strip) 1 each FS [facility] Last Admin: 07/14/22 16:51 Dose: 1 each Docusate Sodium (Docusate Sodium 100 Mg Capsule) 100 mg PO BID [facility] Last Admin: 07/14/22 09:11 Dose: 100 mg Enoxaparin Sodium (Enoxaparin 40 Mg/0.4 Ml Syringe) 40 mg SQ DAILY [facility] Last Admin: 07/14/22 09:11 Dose: 40 mg Glucose (Dextrose 31 Gm Oral.Susp) 15 gm PO PRN PRN PRN Reason: Hypoglycemia Hydromorphone HCl (Hydromorphone 0.5 Mg/0.5 Ml Syringe) 0.5 mg IV Q2HP PRN; Protocol PRN Reason: Per Pain Protocol Last Admin: 07/13/22 15:08 Dose: 0.5 mg Piperacillin Sod/Tazobactam (Sod 3.375 gm/ Dextrose) 50 mls @ 100 mls/hr IV Q6H [facility]; Protocol Last Infusion: 07/14/22 14:34 Dose: Infused Vancomycin HCl 1,500 mg/ (Sodium Chloride) 500 mls @ 333.3 mls/hr IV Q12H [facility] Last Admin: 07/14/22 09:54 Dose: 33.3 mls/hr Insulin Human Lispro (Insulin Lispro 1 Unit/0.01 Ml Unit) 0 unit SQ [facility]; Protocol Last Admin: 07/14/22 16:52 Dose: Not Given Lorazepam (Lorazepam 1 Mg Tablet) 1 mg PO DAILYP PRN PRN Reason: ANXIETY/SEDATION Mupirocin (Mupirocin Oint 2% 22gm) 1 dose NARES BID [facility] Last Admin: 07/14/22 09:11 Dose: 1 dose Ondansetron HCl (Ondansetron 4 Mg/2 Ml Vial) 4 mg IV Q6HP PRN PRN Reason: Nausea And Vomiting Last Admin: 07/14/22 14:46 Dose: 4 mg Oxycodone HCl (Oxycodone Hcl 5 Mg Tablet) 5 mg PO Q4HP PRN; Protocol PRN Reason: Per Pain Protocol Last Admin: 07/13/22 14:04 Dose: 5 mg Senna (Sennosides 1 Tablet) 2 tab PO HS [facility] Last Admin: 07/13/22 21:05 Dose: 2 tab Sodium Chloride (0.9 % Sodium Chloride 10 Ml Syringe) 10 ml IV Q8 [facility] Last Admin: 07/14/22 14:04 Dose: 10 ml Trazodone HCl (Trazodone Hcl 50 Mg Tablet) 25 mg PO HSP PRN PRN Reason: Insomnia Vancomycin HCl (Vancomycin Per Pharmacy) 1 order IV UD [facility]; Protocol A/P Narrative A/P Narrative: Assessment: 51-year-old male with a history of prediabetes, recently treated for right lower extremity cellulitis, discharged on Augmentin who returned to the ED with worsening right lower extremity pain. The patient was found to have a large open wound with an underlying abscess on his lower right lower extremity. He was admitted for debridement of necrotic tissue, washout, IV antibiotic treatment and wound cares. #Purulent right lower extremity cellulitis with underlying abscess status post debridement and washout #Normocytic anemia #Prediabetes Plan -Continue vancomycin IV and Zosyn. -Follow all cultures. -Analgesics. -Wound cares and wound VAC management. -General surgery following for surgical management. -Correction Humalog SSI. -Diabetic diet. -DVT prophylaxis: Lovenox -CODE STATUS: Full -Disposition: Probably home when stable, follow-up with general surgery. May need a skin graft at some point. Time Spent With Patient Time: Total time spent is greater than 50% in coordination of care (as documented) at patient's floor/unit and/or counseling patient: QUALITY VTE Deep Vein Thrombosis/Pulmonary Embolism Present on Admission: No
[2022-07-14] MEDS: SENNOSIDES 1 TABLET PO SCH (22:14)
[2022-07-15] MEDS: PIPERACILLIN SODIUM/TAZOBACTAM 3.375 GM in DEXTROSE 5% IN WATER 50 ML IV SCH ×4 (05:36→23:16)
[2022-07-15] MEDS: 0.9 % SODIUM CHLORIDE 10 ML SYRINGE IV SCH ×3 (05:36→21:03)
[2022-07-15] MEDS: INSULIN LISPRO 1 UNIT/0.01 ML UNIT SQ SCH ×4 (07:37→21:04)
[2022-07-15] MEDS: MUPIROCIN OINT 2% 22GM NARES SCH ×2 (08:44→20:50)
[2022-07-15] MEDS: VANCOMYCIN 1,500 MG in 0.9 % SODIUM CHLORIDE 500 ML IV SCH ×4 (08:44→21:07)
[2022-07-15] MEDS: ENOXAPARIN 40 MG/0.4 ML SYRINGE SQ SCH (08:44)
[2022-07-15] MEDS: DOCUSATE SODIUM 100 MG CAPSULE PO SCH ×2 (08:44→20:49)
--- NOTE | 2022-07-15 08:50 | General Surgery Progress Note ---
SUBJECTIVE Subjective Patient information: Note initiated : 07/15/22 at 8:48 am Service Date, if different from initiated Date: [] Patient: Samir Montes 51 y/o M admitted on 07/12/22 for wound to right leg. Chief Complaint: [] Doing well with VAC in place, denies any leg pain at this time Constitutional Vitals: Vital Signs Temp Pulse Resp BP Pulse Ox O2 Del Method O2 Flow Rate 98.0 F 76 16 146/80 96 3 07/15/22 06:44 07/15/22 06:44 07/15/22 06:44 07/15/22 06:44 07/15/22 06:44 07/15/22 06:44 07/13/22 08:45 Period Temp Pulse Resp BP Sys/Wang Pulse Ox O2 Del Method O2 Flow Rate Last 24 Hr 98.0 F-99.9 F 76-104 - 136-155/77-93 96-96 Room Air-Room Air Intake and Output 07/14/22 07/15/22 07/15/22 21:59 05:59 13:59 Intake Total 160 860 401 Output Total 725 2550 600 Balance -565 -1690 -199 Weight 295 lb 14.4 oz Intake & Output: Intake & Output 07/14/22 07/15/22 07/15/22 21:59 05:59 13:59 Intake Total 160 860 401 Output Total 725 2550 600 Balance -565 -1690 -199 Weight 295 lb 14.4 oz Intake: IV 100 460 401 Zosyn 3.375 gm In Dextrose 5% 100 50 50 in Water 50 ml @ 100 mls/hr IV Q6H DAMIÁN Rx#:[id number] Vancomycin 1,500 mg In Sodium 410 351 Chloride 0.9% 500 ml @ 333.3 mls/hr IV Q12H DAMIÁN Rx#: [id number] Oral 60 400 Output: Void Amount 725 2550 600 Other: Meal Lunch Percent of Meal Consumed 50% Feeding Ability Independent Urine Appearance Clear Clear Clear Urine Color Bright Yellow Pale Yellow Urine Odor Normal Stool Size Moderate Stool Color Brown Stool Consistency Formed # Voids 1 1 # Bowel Movements 1 0 Exam: Looks well, nontoxic Extremities Exam Additional comments: VAC in place, expected surrounding erythema has lessened, no pain on exam A/P Assessment and plan (1) Leg wound, right: Assessment and plan: Doing well post debridement VAC change tomorrow Continue IV ABs for now Status: Acute Time Spent With Patient Time: Total time spent is greater than 50% in coordination of care (as documented) at patient's floor/unit and/or counseling patient:
[2022-07-15] MEDS: SENNOSIDES 1 TABLET PO SCH (20:50)
[2022-07-15] MEDS: traZODone HCL 50 MG TABLET PO PRN (21:18)
[2022-07-15] MEDS ORDERED: DIAZEPAM 2 MG TABLET PO PRN (22:04)
[2022-07-15] MEDS ORDERED: DIAZEPAM 5 MG TABLET ONE (22:26)
[2022-07-15] MEDS: HYDROmorphone 0.5 MG/0.5 ML SYRINGE IV PRN (23:17)
[2022-07-16] MEDS ORDERED: amLODIPine 5 MG TABLET PO ONE ×2 (01:33→09:41)
[2022-07-16] MEDS ORDERED: amLODIPine 5 MG TABLET ONE (01:57)
[2022-07-16 06:26] LABS: Basophils # (Auto) 0.06 K/mcL (0.00-0.30); Basophils % (Auto) 0.7 % (0.0-2.0); Eosinophils # (Auto) 0.16 K/mcL (0.00-0.70); Eosinophils % (Auto) 1.8 % (0.0-7.0); Hematocrit 36.5 % (40.1-51.0); Hemoglobin 11.8 g/dL (13.7-17.5); Lymphocytes # (Auto) 3.07 K/mcL (1.50-4.80); Lymphocytes % (Auto) 34.1 % (15.5-49.0); Mean Cell Volume 93.4 fL (80.0-100.0); Mean Corpuscular HGB Conc 32.3 g/dL (31.0-36.0); Mean Platelet Volume 8.6 fL (7.4-10.4); Monocytes # (Auto) 0.77 K/mcL (0.10-0.90); Monocytes % (Auto) 8.6 % (1.0-12.0); Neutrophils % (Auto) 53.9 % (38.0-78.0); Platelet Count 517 K/mcL (140-440); RBC 3.91 M/mcL (4.63-6.08); Red Cell Distribution Width 12.2 % (11.5-14.5)
[2022-07-16] MEDS: PIPERACILLIN SODIUM/TAZOBACTAM 3.375 GM in DEXTROSE 5% IN WATER 50 ML IV SCH ×3 (06:56→17:29)
[2022-07-16] MEDS: 0.9 % SODIUM CHLORIDE 10 ML SYRINGE IV SCH ×3 (06:56→21:38)
[2022-07-16] MEDS ORDERED: DIAZEPAM 2 MG TABLET PO PRN (07:45)
[2022-07-16] MEDS: amLODIPine 5 MG TABLET PO SCH ×2 (08:43→11:47)
[2022-07-16] MEDS: DOCUSATE SODIUM 100 MG CAPSULE PO SCH ×2 (08:43→21:36)
[2022-07-16] MEDS: INSULIN LISPRO 1 UNIT/0.01 ML UNIT SQ SCH ×4 (08:43→21:37)
[2022-07-16] MEDS: ENOXAPARIN 40 MG/0.4 ML SYRINGE SQ SCH (08:43)
[2022-07-16] MEDS ORDERED: DIAZEPAM 2 MG TABLET PO SCH (09:00)
[2022-07-16] MEDS: MUPIROCIN OINT 2% 22GM NARES SCH ×2 (09:02→20:56)
[2022-07-16] MEDS: VANCOMYCIN 1,500 MG in 0.9 % SODIUM CHLORIDE 500 ML IV SCH ×2 (09:12→20:56)
--- NOTE | 2022-07-16 11:09 | General Surgery Progress Note ---
SUBJECTIVE Subjective Patient information: Note initiated : 07/16/22 at 11:07 am Service Date, if different from initiated Date: [] Patient: Samir Montes 51 y/o M admitted on 07/12/22 for wound to right leg. Chief Complaint: [] Doing well, no pain in Right Leg - VAC change planned for today Constitutional Vitals: Vital Signs Temp Pulse Resp BP Pulse Ox O2 Del Method O2 Flow Rate 98.5 F 83 18 178/109 99 3 07/16/22 07:36 07/16/22 07:36 07/16/22 07:36 07/16/22 07:36 07/16/22 07:36 07/16/22 04:00 07/13/22 08:45 Period Temp Pulse Resp BP Sys/Wang Pulse Ox O2 Del Method O2 Flow Rate Last 24 Hr 97.0 F-99.0 F 68-94 16-20 137-178/82-110 96-100 Room Air-Room Air Intake and Output 07/15/22 07/16/22 07/16/22 21:59 05:59 13:59 Intake Total 850 1030 170 Output Total 700 700 Balance 150 330 170 Weight 274 lb Intake & Output: Intake & Output 07/15/22 07/16/22 07/16/22 21:59 05:59 13:59 Intake Total 850 1030 170 Output Total 700 700 Balance 150 330 170 Weight 274 lb Intake: IV 50 550 50 Zosyn 3.375 gm In Dextrose 5% 50 50 50 in Water 50 ml @ 100 mls/hr IV Q6H DAMIÁN Rx#:[id number] Vancomycin 1,500 mg In Sodium 500 Chloride 0.9% 500 ml @ 333.3 mls/hr IV Q12H DAMIÁN Rx#: [id number] Oral 800 480 120 Output: Void Amount 700 700 Other: Meal Breakfast Percent of Meal Consumed 75% Feeding Ability Independent Urine Appearance Clear Clear Urine Color Pale Pale Urine Odor Normal Normal # Voids 2 Exam: Looks well Extremities Exam Additional comments: VAC in place with far less erythema on the surrounding skin A/P Assessment and plan (1) Leg wound, right: Assessment and plan: Necrotizing soft tissue wound of the Right Leg Post Exploration and Debridement Doing well with VAC Change today Can be discharged from out standpoint once home wound care and wound vac has been finalized with follow up in the [facility] Status: Acute Time Spent With Patient Time: Total time spent is greater than 50% in coordination of care (as documented) at patient's floor/unit and/or counseling patient:
--- NOTE | 2022-07-16 11:56 | Internal Med Progress Note ---
SUBJECTIVE Subjective Patient information: Note initiated : 07/16/22 at 11:55 am Service Date, if different from initiated Date: [] Patient: Samir Montes 51 y/o M admitted on 07/12/22 for wound to right leg. Chief Complaint: [] Interval history: Mr. Montes is a 51 year old M history of prediabetes, recently admitted to our facility from June 11 to June 16 with right leg cellulitis, presenting with worsening of right leg and foot wound and pain. He was admitted from June 11 to June 16 in our facility for right leg cellulitis, and was being treated with bedside debridement and IV antibiotics first with IV vancomycin and Zosyn, which were then transitioned to oral Augmentin after the wound grew staph aureus. Patient stated that he finished the antibiotics and was doing great until today when he started to have acute worsening of shooting electrical pain that localized in his right foot, 9 out of 10 in intensity, intermittent, w ithout any associated subjective fever or shaking chills. There is also associated multiple ulcers on right whaley with pustular discharge, foul smelling, and surrounding erythema. He returned to our ED for reevaluation today. Vital signs significant for mild tachycardia with heart rate up to the 100s, leukocytosis with WBC 16.6, ESR 67, CRP 9.70, procalcitonin 0.16, and serum lactic acid 0.9. CT of the right leg showing large open wound in the mid whaley with underlying abscess. Normal tibia-fibula without evidence of osteomyelitis. 07/13: Status post expirations, debridement, washout, intraoperative wound cultures of the right lower leg wounds by general surgeon Dr. Read 07/12. All cultures no growth today. Afebrile overnight. Patient is currently denies any right leg pain. He denies any shortness of breath. He denies any fever, chills, or diaphoresis. Continue broad-spectrum IV antibiotics with vancomycin and Zosyn. Wound VAC pending later this afternoon. 07/14: Status post right lower leg wound VAC placement on July 13. Afebrile overnight. WBC 13.6. All cultures no growth today. Patient denies any fever or chills or diaphoresis. He denies any right lower leg pain. Continue wound VAC care. Continue broad-spectrum IV antibiotics with vancomycin and Zosyn. Continue physical therapy. 07/15: Patient is stable, afebrile overnight. General surgery planning to replace wound VAC tomorrow. Continue on vancomycin and Zosyn, will recheck CBC with differential tomorrow. 07/16: Blood pressure elevated, started Amlodipine. Wound VAC change today per general surgery. Leukocytosis resolved. Continues on Vancomycin and Zosyn. Head: Atraumatic, normal inspection. Eyes: normal appearance, no scleral icterus. Neck: full ROM Respiratory: no respiratory distress. Cardiovascular: normal rate and rhythm, S1, S2. GI/Abdominal: soft, nontender, no guarding. Extremities: Large incision of soft tissue on anterior right leg, covered with wound VAC. Neurological: CN II-XII intact, intact motor, intact sensation. Psychiatric: normal mood. Skin: Cellulitic skin around wound of anterior right leg Constitutional Vitals: Vital Signs Temp Pulse Resp BP Pulse Ox O2 Del Method O2 Flow Rate 98.5 F 83 18 178/109 99 3 07/16/22 07:36 07/16/22 07:36 07/16/22 07:36 07/16/22 07:36 07/16/22 07:36 07/16/22 04:00 07/13/22 08:45 Period Temp Pulse Resp BP Sys/Wang Pulse Ox O2 Del Method O2 Flow Rate Last 24 Hr 97.0 F-99.0 F 68-94 16-20 137-178/82-110 96-100 Room Air-Room Air Intake and Output 07/15/22 07/16/22 07/16/22 21:59 05:59 13:59 Intake Total 850 1030 670 Output Total 700 700 Balance 150 330 670 Weight 124.284 kg Intake & Output: Intake & Output 07/15/22 07/16/22 07/16/22 21:59 05:59 13:59 Intake Total 850 1030 670 Output Total 700 700 Balance 150 330 670 Weight 124.284 kg Intake: IV 50 550 550 Zosyn 3.375 gm In Dextrose 5% 50 50 50 in Water 50 ml @ 100 mls/hr IV Q6H DAMIÁN Rx#:[id number] Vancomycin 1,500 mg In Sodium 500 500 Chloride 0.9% 500 ml @ 333.3 mls/hr IV Q12H DAMIÁN Rx#: [id number] Oral 800 480 120 Output: Void Amount 700 700 Other: Meal Breakfast Percent of Meal Consumed 75% Feeding Ability Independent Urine Appearance Clear Clear Urine Color Pale Pale Urine Odor Normal Normal # Voids 2 OBJ DATA Labs CBC & Chem 7: 07/16/22 05:43 07/14/22 05:48 Labs: Abnormal Lab Results 07/16/22 07/14/22 07/14/22 05:43 05:48 05:48 WBC 13.6 H RBC 3.91 L 3.38 L Hgb 11.8 L 10.4 L Hct 36.5 L 32.3 L Plt Count 517 H Immature Gran % (Auto) 0.9 H 0.7 H Immature Gran # 0.08 H 0.10 H Absolute Neutrophils 10.52 H Anion Gap 7.0 L Glucose 111 H Calcium 8.1 L Meds: Medications Acetaminophen (Acetaminophen 325 Mg Tablet) 650 mg PO Q6HP PRN; Protocol PRN Reason: Per Pain Protocol/Fever > 101 Albuterol/Ipratropium (Ipratropium/Albuterol 3 Ml Ampul.Neb) 3 ml NEB Q4HRT PRN PRN Reason: Wheezing Amlodipine Besylate (Amlodipine 5 Mg Tablet) 10 mg PO DAILY [facility] Dextrose (Dextrose 50% 50 Ml Vial) 0 ml IV UD PRN PRN Reason: Per Sliding Scale Diagnostic Test (Pha) (Accu-Chek 1 Each Strip) 1 each FS ACHS [facility] Last Admin: 07/16/22 11:17 Dose: 1 each Diazepam (Diazepam 2 Mg Tablet) 2 mg PO Q12HP PRN PRN Reason: Anxiety Docusate Sodium (Docusate Sodium 100 Mg Capsule) 100 mg PO BID [facility] Last Admin: 07/16/22 08:43 Dose: 100 mg Enoxaparin Sodium (Enoxaparin 40 Mg/0.4 Ml Syringe) 40 mg SQ DAILY [facility] Last Admin: 07/16/22 08:43 Dose: 40 mg Glucose (Dextrose 31 Gm Oral.Susp) 15 gm PO PRN PRN PRN Reason: Hypoglycemia Hydromorphone HCl (Hydromorphone 0.5 Mg/0.5 Ml Syringe) 0.5 mg IV Q2HP PRN; Protocol PRN Reason: Per Pain Protocol Last Admin: 07/15/22 23:17 Dose: 0.5 mg Piperacillin Sod/Tazobactam (Sod 3.375 gm/ Dextrose) 50 mls @ 100 mls/hr IV Q6H [facility]; Protocol Last Admin: 07/16/22 11:54 Dose: 100 mls/hr Vancomycin HCl 1,500 mg/ (Sodium Chloride) 500 mls @ 333.3 mls/hr IV Q12H [facility] Last Infusion: 07/16/22 11:23 Dose: Infused Insulin Human Lispro (Insulin Lispro 1 Unit/0.01 Ml Unit) 0 unit SQ ACHS [facility]; Protocol Last Admin: 07/16/22 11:23 Dose: Not Given Lorazepam (Lorazepam 1 Mg Tablet) 1 mg PO DAILYP PRN PRN Reason: ANXIETY/SEDATION Mupirocin (Mupirocin Oint 2% 22gm) 1 dose NARES BID [facility] Last Admin: 07/16/22 09:02 Dose: 1 dose Ondansetron HCl (Ondansetron 4 Mg/2 Ml Vial) 4 mg IV Q6HP PRN PRN Reason: Nausea And Vomiting Last Admin: 07/14/22 14:46 Dose: 4 mg Oxycodone HCl (Oxycodone Hcl 5 Mg Tablet) 5 mg PO Q4HP PRN; Protocol PRN Reason: Per Pain Protocol Last Admin: 07/13/22 14:04 Dose: 5 mg Senna (Sennosides 1 Tablet) 2 tab PO HS [facility] Last Admin: 07/15/22 20:50 Dose: 2 tab Sodium Chloride (0.9 % Sodium Chloride 10 Ml Syringe) 10 ml IV Q8 [facility] Last Admin: 07/16/22 06:56 Dose: 10 ml Trazodone HCl (Trazodone Hcl 50 Mg Tablet) 25 mg PO HSP PRN PRN Reason: Insomnia Last Admin: 07/15/22 21:18 Dose: 25 mg Vancomycin HCl (Vancomycin Per Pharmacy) 1 order IV UD [facility]; Protocol A/P Narrative A/P Narrative: Assessment: 51-year-old male with a history of prediabetes, recently treated for right lower extremity cellulitis, discharged on Augmentin who returned to the ED with worsening right lower extremity pain. The patient was found to have a large open wound with an underlying abscess on his lower right lower extremity. He was admitted for debridement of necrotic tissue, washout, IV antibiotic treatment and wound cares. #Purulent right lower extremity cellulitis with underlying abscess status post debridement and washout #Elevated blood pressure #Normocytic anemia #Prediabetes Plan -Continue vancomycin IV and Zosyn. -Follow all cultures. -Analgesics. -Wound cares and wound VAC management. -General surgery following for surgical management. -Start Norvasc 10 mg daily. -Correction Humalog SSI. -Diabetic diet. -DVT prophylaxis: Lovenox -CODE STATUS: Full -Disposition: Probably home when stable, follow-up with general surgery. May need a skin graft at some point. Time Spent With Patient Time: Total time spent is greater than 50% in coordination of care (as documented) at patient's floor/unit and/or counseling patient: QUALITY VTE Deep Vein Thrombosis/Pulmonary Embolism Present on Admission: No
[2022-07-16] MEDS: HYDROmorphone 0.5 MG/0.5 ML SYRINGE IV PRN (13:49)
[2022-07-16] MEDS: SENNOSIDES 1 TABLET PO SCH (21:36)
[2022-07-16] MEDS: CLINDAMYCIN IN 0.9 % SOD CHLOR 900 MG/50 ML BAG IV SCH (23:36)
[2022-07-17] MEDS: PIPERACILLIN SODIUM/TAZOBACTAM 3.375 GM in DEXTROSE 5% IN WATER 50 ML IV SCH ×5 (00:14→23:43)
[2022-07-17] MEDS: CLINDAMYCIN IN 0.9 % SOD CHLOR 900 MG/50 ML BAG IV SCH ×3 (05:55→23:04)
[2022-07-17] MEDS: 0.9 % SODIUM CHLORIDE 10 ML SYRINGE IV SCH ×2 (05:55→15:25)
[2022-07-17] MEDS: INSULIN LISPRO 1 UNIT/0.01 ML UNIT SQ SCH ×4 (07:09→21:11)
--- NOTE | 2022-07-17 08:02 | Operative Note ---
DATE OF OPERATION: 07/12/2022 DATE OF PROCEDURE: 07/12/2022 PREOPERATIVE DIAGNOSIS: Necrotizing soft tissue infection of the right lower leg. POSTOPERATIVE DIAGNOSIS: Necrotizing soft tissue infection of the right lower leg. OPERATIVE PROCEDURE: Exploration, washout and debridement of necrotizing soft tissue infection of the right lower leg. SURGEON: Calvin Read M.D. ANESTHESIA: General. PREOPERATIVE MEDICATIONS: Zosyn 3.375 g IV and vancomycin 1 gram IV. INDICATIONS: The patient is a 51-year-old male who presented to the Emergency Room earlier this evening with continuation and ongoing issues related to a severe wound to the right lower leg. He had been hospitalized previously at the hospital for a lengthy period of time and then sent home with antibiotics and then re-presented some period of time later to the Emergency Room on this particular day with a large open wound of the right lower leg with obvious infection, evidence of tissue necrosis, cellulitis and worsening sepsis. He was in tremendous pain and concern regarding a possible necrotizing soft tissue infection was very high. We saw him in consultation in the ER and recommended surgery. We discussed at length the risks, benefits, potential complications, and alternative treatment options, all of which were discussed with him at length. He understood that we would have to debride away the necrotic tissue to give him the best chance of eliminating this infection and he would be left with a large wound in the right lower leg that would require prolonged wound care and the potential for morbidity related to that. We had a good discussion with them regarding all the options and issues. I did not feel that there was any option to not proceed to the operating room at this time and made that clear to him, and he agreed to proceed and wished to go ahead with our plan. DESCRIPTION OF PROCEDURE: The patient was taken to the OR and placed supine on the OR table, placed under general anesthesia and intubated. Bilateral SCDs were applied. All pressure sensitive areas were carefully padded and the entire OR team worked to position him comfortably on the table. We then fully prepped and draped the right lower leg from just above the knee down and then after doing this, we began the procedure by removing large amounts of slough in the bed of the wound. We sent samples of both tissue and fluid for Gram stain and culture and analysis and then debrided back to healthy vibrant oozing tissues in all directions. He had a necrotizing infection that appeared to involve and extended down to the fascial layer of the underlying musculature and we debrided all nonviable devitalized necrotic tissues away. There were several areas of tunneling with distant areas of ulceration in the interposed skin, which appeared largely necrotic and all these areas were removed as well. Once we had eliminated essentially all of the grossly evident necrotic tissue and debris we then went ahead and curetted for additional debridement and then continued to debride the area further with pulse lavage. At this point, the wound looked dramatically better. I felt that we had adequately removed all devitalized tissues and active infection. He still has some surrounding areas of cellulitis and this was tissue that was well perfused without evidence of necrosis and I felt would likely respond to antibiotics. At this point, moist Kerlix gauze was placed into the wound and dry dressings were placed over this. The leg was wrapped and he was transported to the recovery area after being awakened, extubated, and transported. COMPLICATIONS: None apparent. FINDINGS: As discussed above. ESTIMATED BLOOD LOSS: Roughly 100 mL. DRAINS: None. FINDINGS: Large necrotizing soft tissue infection of the right lower leg with an open wound that required extensive debridement as discussed above. [id number] Job ID: [id number] Doc ID: [id number] Calvin Read M.D. NARGIS
--- NOTE | 2022-07-17 08:20 | General Surgery Progress Note ---
SUBJECTIVE Subjective Patient information: Note initiated : 07/17/22 at 8:17 am Service Date, if different from initiated Date: [] Patient: Samir Montes 51 y/o M admitted on 07/12/22 for wound to right leg. Chief Complaint: [] Looks well today, added Clindamycin yesterday as a precaution pending final cultures given its synergistic actions Constitutional Vitals: Vital Signs Temp Pulse Resp BP Pulse Ox O2 Del Method O2 Flow Rate 98.5 F 87 12 144/92 99 3 07/17/22 03:34 07/17/22 03:34 07/17/22 03:34 07/17/22 03:34 07/17/22 03:34 07/17/22 03:34 07/13/22 08:45 Period Temp Pulse Resp BP Sys/Wang Pulse Ox O2 Del Method O2 Flow Rate Last 24 Hr 98.1 F-99.2 F 87-109 12-18 106-145/64-97 96-99 Room Air-Room Air Intake and Output 07/16/22 07/17/22 07/17/22 21:59 05:59 13:59 Intake Total 1130 600 Output Total 1325 650 Balance -195 600 -650 Weight 279 lb 11.2 oz Intake & Output: Intake & Output 07/16/22 07/17/22 07/17/22 21:59 05:59 13:59 Intake Total 1130 600 Output Total 1325 650 Balance -195 600 -650 Weight 279 lb 11.2 oz Intake: IV 50 600 Zosyn 3.375 gm In Dextrose 5% 50 50 in Water 50 ml @ 100 mls/hr IV Q6H DAMIÁN Rx#:[id number] Vancomycin 1,500 mg In Sodium 500 Chloride 0.9% 500 ml @ 333.3 mls/hr IV Q12H DAMIÁN Rx#: [id number] Oral 1080 0 Output: Void Amount 1325 650 Other: Meal Dinner Percent of Meal Consumed 100% Feeding Ability Independent Urine Appearance Clear Clear Urine Color Yellow Bright Yellow Urine Odor Normal Normal Exam: Looks well, non toxic Extremities Exam Additional comments: VAC in place, surrounding erythema stable to mildly improved A/P Assessment and plan (1) Leg wound, right: Assessment and plan: Necrotizing Soft Tissue Wound Right Lower Leg Post Debridement - final cultures pending VAC Change tomorrow Continue IV ABs for now Status: Acute Time Spent With Patient Time: Total time spent is greater than 50% in coordination of care (as documented) at patient's floor/unit and/or counseling patient:
[2022-07-17] MEDS: VANCOMYCIN 1,500 MG in 0.9 % SODIUM CHLORIDE 500 ML IV SCH ×2 (09:53→21:08)
[2022-07-17] MEDS: amLODIPine 5 MG TABLET PO SCH (09:54)
[2022-07-17] MEDS: ENOXAPARIN 40 MG/0.4 ML SYRINGE SQ SCH (09:54)
[2022-07-17] MEDS: DOCUSATE SODIUM 100 MG CAPSULE PO SCH ×2 (09:54→21:06)
[2022-07-17] MEDS: MUPIROCIN OINT 2% 22GM NARES SCH ×2 (09:58→21:09)
--- NOTE | 2022-07-17 14:10 | Internal Med Progress Note ---
SUBJECTIVE Subjective Patient information: Note initiated : 07/17/22 at 2:07 pm Service Date, if different from initiated Date: [] Patient: Samir Montes 51 y/o M admitted on 07/12/22 for wound to right leg. Chief Complaint: [] Interval history: Mr. Montes is a 51 year old M history of prediabetes, recently admitted to our facility from June 11 to June 16 with right leg cellulitis, presenting with worsening of right leg and foot wound and pain. He was admitted from June 11 to June 16 in our facility for right leg cellulitis, and was being treated with bedside debridement and IV antibiotics first with IV vancomycin and Zosyn, which were then transitioned to oral Augmentin after the wound grew staph aureus. Patient stated that he finished the antibiotics and was doing great until today when he started to have acute worsening of shooting electrical pain that localized in his right foot, 9 out of 10 in intensity, intermittent, wi thout any associated subjective fever or shaking chills. There is also associated multiple ulcers on right whaley with pustular discharge, foul smelling, and surrounding erythema. He returned to our ED for reevaluation today. Vital signs significant for mild tachycardia with heart rate up to the 100s, leukocytosis with WBC 16.6, ESR 67, CRP 9.70, procalcitonin 0.16, and serum lactic acid 0.9. CT of the right leg showing large open wound in the mid whaley with underlying abscess. Normal tibia-fibula without evidence of osteomyelitis. 07/13: Status post expirations, debridement, washout, intraoperative wound cultures of the right lower leg wounds by general surgeon Dr. Read 07/12. All cultures no growth today. Afebrile overnight. Patient is currently denies any right leg pain. He denies any shortness of breath. He denies any fever, chills, or diaphoresis. Continue broad-spectrum IV antibiotics with vancomycin and Zosyn. Wound VAC pending later this afternoon. 07/14: Status post right lower leg wound VAC placement on July 13. Afebrile overnight. WBC 13.6. All cultures no growth today. Patient denies any fever or chills or diaphoresis. He denies any right lower leg pain. Continue wound VAC care. Continue broad-spectrum IV antibiotics with vancomycin and Zosyn. Continue physical therapy. 07/15: Patient is stable, afebrile overnight. General surgery planning to replace wound VAC tomorrow. Continue on vancomycin and Zosyn, will recheck CBC with differential tomorrow. 07/16: Blood pressure elevated, started Amlodipine. Wound VAC change today per general surgery. Leukocytosis resolved. Continues on Vancomycin and Zosyn. 07/17: Vitals stable overnight. Blood pressure improved with amlodipine. General surgery added clindamycin to vancomycin and Zosyn as a precaution, planning wound VAC change. Head: Atraumatic, normal inspection. Eyes: normal appearance, no scleral icterus. Neck: full ROM Respiratory: no respiratory distress. Cardiovascular: normal rate and rhythm, S1, S2. GI/Abdominal: soft, nontender, no guarding. Extremities: Large incision of soft tissue on anterior right leg, covered with wound VAC. Neurological: CN II-XII intact, intact motor, intact sensation. Psychiatric: normal mood. Skin: Cellulitic skin around wound of anterior right leg Constitutional Vitals: Vital Signs Temp Pulse Resp BP Pulse Ox O2 Del Method O2 Flow Rate 97.9 F 83 16 128/78 98 3 07/17/22 12:00 07/17/22 12:00 07/17/22 12:00 07/17/22 12:00 07/17/22 12:00 07/17/22 12:00 07/13/22 08:45 Period Temp Pulse Resp BP Sys/Wang Pulse Ox O2 Del Method O2 Flow Rate Last 24 Hr 97.8 F-99.2 F 83-101 12-18 106-165/64-97 97-99 Room Air-Room Air Intake and Output 07/17/22 07/17/22 07/17/22 05:59 13:59 21:59 Intake Total 600 290 Output Total 650 Balance 600 -360 Weight 126.87 kg Patient Weight 07/18/22 05:59 Weight 126.87 kg Intake & Output: Intake & Output 07/17/22 07/17/22 07/17/22 05:59 13:59 21:59 Intake Total 600 290 Output Total 650 Balance 600 -360 Weight 126.87 kg Intake: IV 600 50 Zosyn 3.375 gm In Dextrose 5% 50 50 in Water 50 ml @ 100 mls/hr IV Q6H [facility] Rx#:[id number] Vancomycin 1,500 mg In Sodium 500 Chloride 0.9% 500 ml @ 333.3 mls/hr IV Q12H [facility] Rx#: [id number] Oral 0 240 Output: Void Amount 650 Other: Meal Breakfast Percent of Meal Consumed 100% Urine Appearance Clear Urine Color Bright Yellow Urine Odor Normal OBJ DATA Labs CBC & Chem 7: 07/16/22 05:43 07/14/22 05:48 Labs: Abnormal Lab Results 07/16/22 05:43 RBC 3.91 L Hgb 11.8 L Hct 36.5 L Plt Count 517 H Immature Gran % (Auto) 0.9 H Immature Gran # 0.08 H Meds: Medications Acetaminophen (Acetaminophen 325 Mg Tablet) 650 mg PO Q6HP PRN; Protocol PRN Reason: Per Pain Protocol/Fever > 101 Albuterol/Ipratropium (Ipratropium/Albuterol 3 Ml Ampul.Neb) 3 ml NEB Q4HRT PRN PRN Reason: Wheezing Amlodipine Besylate (Amlodipine 5 Mg Tablet) 10 mg PO DAILY [facility] Last Admin: 07/17/22 09:54 Dose: 10 mg Dextrose (Dextrose 50% 50 Ml Vial) 0 ml IV UD PRN PRN Reason: Per Sliding Scale Diagnostic Test (Pha) (Accu-Chek 1 Each Strip) 1 each FS ACHS [facility] Last Admin: 07/17/22 12:57 Dose: 1 each Diazepam (Diazepam 2 Mg Tablet) 2 mg PO Q12HP PRN PRN Reason: Anxiety Last Admin: 07/16/22 21:36 Dose: 2 mg Docusate Sodium (Docusate Sodium 100 Mg Capsule) 100 mg PO BID [facility] Last Admin: 07/17/22 09:54 Dose: 100 mg Enoxaparin Sodium (Enoxaparin 40 Mg/0.4 Ml Syringe) 40 mg SQ DAILY [facility] Last Admin: 07/17/22 09:54 Dose: 40 mg Glucose (Dextrose 31 Gm Oral.Susp) 15 gm PO PRN PRN PRN Reason: Hypoglycemia Hydromorphone HCl (Hydromorphone 0.5 Mg/0.5 Ml Syringe) 0.5 mg IV Q2HP PRN; Protocol PRN Reason: Per Pain Protocol Last Admin: 07/16/22 13:49 Dose: 0.5 mg Piperacillin Sod/Tazobactam (Sod 3.375 gm/ Dextrose) 50 mls @ 100 mls/hr IV Q6H [facility]; Protocol Last Admin: 07/17/22 12:50 Dose: 100 mls/hr Vancomycin HCl 1,500 mg/ (Sodium Chloride) 500 mls @ 333.3 mls/hr IV Q12H [facility] Last Admin: 07/17/22 09:53 Dose: 333 mls/hr CLINDAMYCIN IN 0.9 % SOD CHLOR (Clindamycin 900 Mg/50 Ml-Ns) 900 mg in 50 mls @ 100 mls/hr IV Q8H [facility] Insulin Human Lispro (Insulin Lispro 1 Unit/0.01 Ml Unit) 0 unit SQ ACHS [facility]; Protocol Last Admin: 07/17/22 12:24 Dose: Not Given Lorazepam (Lorazepam 1 Mg Tablet) 1 mg PO DAILYP PRN PRN Reason: ANXIETY/SEDATION Last Admin: 07/16/22 13:50 Dose: 1 mg Mupirocin (Mupirocin Oint 2% 22gm) 1 dose NARES BID [facility] Last Admin: 07/17/22 09:58 Dose: 1 dose Ondansetron HCl (Ondansetron 4 Mg/2 Ml Vial) 4 mg IV Q6HP PRN PRN Reason: Nausea And Vomiting Last Admin: 07/14/22 14:46 Dose: 4 mg Oxycodone HCl (Oxycodone Hcl 5 Mg Tablet) 5 mg PO Q4HP PRN; Protocol PRN Reason: Per Pain Protocol Last Admin: 07/13/22 14:04 Dose: 5 mg Senna (Sennosides 1 Tablet) 2 tab PO HS [facility] Last Admin: 07/16/22 21:36 Dose: 2 tab Sodium Chloride (0.9 % Sodium Chloride 10 Ml Syringe) 10 ml IV Q8 [facility] Last Admin: 07/17/22 05:55 Dose: 10 ml Trazodone HCl (Trazodone Hcl 50 Mg Tablet) 25 mg PO HSP PRN PRN Reason: Insomnia Last Admin: 07/15/22 21:18 Dose: 25 mg Vancomycin HCl (Vancomycin Per Pharmacy) 1 order IV UD [facility]; Protocol A/P Narrative A/P Narrative: Assessment: 51-year-old male with a history of prediabetes, recently treated for right lower extremity cellulitis, discharged on Augmentin who returned to the ED with worsening right lower extremity pain. The patient was found to have a large open wound with an underlying abscess on his lower right lower extremity. He was admitted for debridement of necrotic tissue, washout, IV antibiotic tr eatment and wound cares. #Purulent right lower extremity cellulitis with underlying abscess status post debridement and washout #Elevated blood pressure #Normocytic anemia #Prediabetes Plan -General surgery following for surgical management. -Antibiotics per general surgery, currently IV vancomycin, Zosyn, clindamycin. -Follow all cultures. -Analgesics. -Wound cares and wound VAC management. -Continue Norvasc 10 mg daily. -Correction Humalog SSI. -Diabetic diet. -DVT prophylaxis: Lovenox -CODE STATUS: Full -Disposition: Probably home when stable, follow-up with general surgery. May need a skin graft at some point. Time Spent With Patient Time: Total time spent is greater than 50% in coordination of care (as documented) at patient's floor/unit and/or counseling patient: QUALITY VTE Deep Vein Thrombosis/Pulmonary Embolism Present on Admission: No
[2022-07-17] MEDS: SENNOSIDES 1 TABLET PO SCH (21:06)
[2022-07-17] MEDS: traZODone HCL 50 MG TABLET PO PRN (21:06)
[2022-07-18] MEDS: 0.9 % SODIUM CHLORIDE 10 ML SYRINGE IV SCH ×5 (00:39→22:45)
[2022-07-18] MEDS: CLINDAMYCIN IN 0.9 % SOD CHLOR 900 MG/50 ML BAG IV SCH ×3 (05:26→22:44)
[2022-07-18] MEDS: PIPERACILLIN SODIUM/TAZOBACTAM 3.375 GM in DEXTROSE 5% IN WATER 50 ML IV SCH ×4 (06:25→23:23)
[2022-07-18] MEDS: VANCOMYCIN 1,500 MG in 0.9 % SODIUM CHLORIDE 500 ML IV SCH ×2 (08:51→20:24)
[2022-07-18] MEDS: ENOXAPARIN 40 MG/0.4 ML SYRINGE SQ SCH (08:52)
[2022-07-18] MEDS: MUPIROCIN OINT 2% 22GM NARES SCH ×2 (08:52→20:27)
[2022-07-18] MEDS: DOCUSATE SODIUM 100 MG CAPSULE PO SCH ×2 (08:52→20:24)
[2022-07-18] MEDS: amLODIPine 5 MG TABLET PO SCH (08:53)
[2022-07-18] MEDS: INSULIN LISPRO 1 UNIT/0.01 ML UNIT SQ SCH ×4 (09:45→20:19)
[2022-07-18] MEDS: oxyCODONE HCL 5 MG TABLET PO PRN (11:15)
[2022-07-18] MEDS: HYDROmorphone 0.5 MG/0.5 ML SYRINGE IV PRN (11:16)
--- NOTE | 2022-07-18 15:27 | General Surgery Progress Note ---
SUBJECTIVE Subjective Patient information: Note initiated : 07/18/22 at 8:24 pm Service Date, if different from initiated Date: [] Patient: Samir Montes 51 y/o M admitted on 07/12/22 for wound to right leg. Chief Complaint: [] Wound check with VAC change at bedside Constitutional Vitals: Vital Signs Temp Pulse Resp BP Pulse Ox O2 Del Method O2 Flow Rate 97.2 F 96 H 16 147/98 97 3 07/18/22 12:00 07/18/22 12:00 07/18/22 12:00 07/18/22 12:00 07/18/22 12:00 07/18/22 12:00 07/13/22 08:45 Period Temp Pulse Resp BP Sys/Wang Pulse Ox O2 Del Method O2 Flow Rate Last 24 Hr 97.2 F-98.8 F 80-96 - 107-150/67-102 97-100 Room Air-Room Air Intake and Output 07/18/22 07/18/22 07/18/22 05:59 13:59 21:59 Intake Total 900 840 Output Total 625 650 Balance 275 190 Intake & Output: Intake & Output 07/18/22 07/18/22 07/18/22 05:59 13:59 21:59 Intake Total 900 840 Output Total 625 650 Balance 275 190 Intake: IV 650 600 Zosyn 3.375 gm In Dextrose 5% 50 100 in Water 50 ml @ 100 mls/hr IV Q6H [facility] Rx#:[id number] Vancomycin 1,500 mg In Sodium 500 500 Chloride 0.9% 500 ml @ 333.3 mls/hr IV Q12H [facility] Rx#: [id number] Oral 250 240 Output: Void Amount 625 650 Other: Meal Lunch Percent of Meal Consumed 100% Urine Appearance Clear Clear Urine Color Bright Yellow Yellow Urine Odor Normal Extremities Exam Additional comments: The Right Leg wound looks very good overall with excellent early granulation and minimal slough - persistent cellulitis changes in the surrounding skin persist but there is no pain or swelling A/P Assessment and plan (1) Leg wound, right: Assessment and plan: Necrotizing Soft Tissue Infection of the Right Lower Leg Doing well with VAC in place Re check again on Saturday with possible bedside debridement if necessary Status: Acute Time Spent With Patient Time: Total time spent is greater than 50% in coordination of care (as documented) at patient's floor/unit and/or counseling patient:
--- NOTE | 2022-07-18 16:16 | Internal Med Progress Note ---
SUBJECTIVE Subjective Patient information: Note initiated : 07/18/22 at 4:14 pm Service Date, if different from initiated Date: [] Patient: Samir Montes 51 y/o M admitted on 07/12/22 for wound to right leg. Chief Complaint: [] Interval history: Mr. Montes is a 51 year old M history of prediabetes, recently admitted to our facility from June 11 to June 16 with right leg cellulitis, presenting with worsening of right leg and foot wound and pain. He was admitted from June 11 to June 16 in our facility for right leg cellulitis, and was being treated with bedside debridement and IV antibiotics first with IV vancomycin and Zosyn, which were then transitioned to oral Augmentin after the wound grew staph aureus. Patient stated that he finished the antibiotics and was doing great until today when he started to have acute worsening of shooting electrical pain that localized in his right foot, 9 out of 10 in intensity, intermittent, wi thout any associated subjective fever or shaking chills. There is also associated multiple ulcers on right whaley with pustular discharge, foul smelling, and surrounding erythema. He returned to our ED for reevaluation today. Vital signs significant for mild tachycardia with heart rate up to the 100s, leukocytosis with WBC 16.6, ESR 67, CRP 9.70, procalcitonin 0.16, and serum lactic acid 0.9. CT of the right leg showing large open wound in the mid whaley with underlying abscess. Normal tibia-fibula without evidence of osteomyelitis. 07/13: Status post expirations, debridement, washout, intraoperative wound cultures of the right lower leg wounds by general surgeon Dr. Read 07/12. All cultures no growth today. Afebrile overnight. Patient is currently denies any right leg pain. He denies any shortness of breath. He denies any fever, chills, or diaphoresis. Continue broad-spectrum IV antibiotics with vancomycin and Zosyn. Wound VAC pending later this afternoon. 07/14: Status post right lower leg wound VAC placement on July 13. Afebrile overnight. WBC 13.6. All cultures no growth today. Patient denies any fever or chills or diaphoresis. He denies any right lower leg pain. Continue wound VAC care. Continue broad-spectrum IV antibiotics with vancomycin and Zosyn. Continue physical therapy. 07/15: Patient is stable, afebrile overnight. General surgery planning to replace wound VAC tomorrow. Continue on vancomycin and Zosyn, will recheck CBC with differential tomorrow. 07/16: Blood pressure elevated, started Amlodipine. Wound VAC change today per general surgery. Leukocytosis resolved. Continues on Vancomycin and Zosyn. 07/17: Vitals stable overnight. Blood pressure improved with amlodipine. General surgery added clindamycin to vancomycin and Zosyn as a precaution, planning wound VAC change. 07/18: No significant events overnight, today the wound VAC was changed, on antibiotics per general surgery preference. General surgery plans to continue the same until at least Saturday. Head: Atraumatic, normal inspection. Eyes: normal appearance, no scleral icterus. Neck: full ROM Respiratory: no respiratory distress. Cardiovascular: normal rate and rhythm, S1, S2. GI/Abdominal: soft, nontender, no guarding. Extremities: Large incision of soft tissue on anterior right leg, covered with wound VAC. Neurological: CN II-XII intact, intact motor, intact sensation. Psychiatric: normal mood. Skin: Cellulitic skin around wound of anterior right leg Constitutional Vitals: Vital Signs Temp Pulse Resp BP Pulse Ox O2 Del Method O2 Flow Rate 97.2 F 96 H 16 147/98 97 3 07/18/22 12:00 07/18/22 12:00 07/18/22 12:00 07/18/22 12:00 07/18/22 12:00 07/18/22 12:00 07/13/22 08:45 Period Temp Pulse Resp BP Sys/Wang Pulse Ox O2 Del Method O2 Flow Rate Last 24 Hr 97.2 F-98.8 F 80-96 - 107-147/67-102 97-100 Room Air-Room Air Intake and Output 07/18/22 07/18/22 07/18/22 05:59 13:59 21:59 Intake Total 900 840 50 Output Total 625 650 Balance 275 190 50 Intake & Output: Intake & Output 07/18/22 07/18/22 07/18/22 05:59 13:59 21:59 Intake Total 900 840 50 Output Total 625 650 Balance 275 190 50 Intake: IV 650 600 50 Zosyn 3.375 gm In Dextrose 5% 50 100 in Water 50 ml @ 100 mls/hr IV Q6H [facility] Rx#:[id number] Vancomycin 1,500 mg In Sodium 500 500 Chloride 0.9% 500 ml @ 333.3 mls/hr IV Q12H [facility] Rx#: [id number] Oral 250 240 Output: Void Amount 625 650 Other: Meal Lunch Percent of Meal Consumed 100% Urine Appearance Clear Clear Urine Color Bright Yellow Yellow Urine Odor Normal OBJ DATA Labs CBC & Chem 7: 07/16/22 05:43 07/14/22 05:48 Labs: Abnormal Lab Results 07/16/22 05:43 RBC 3.91 L Hgb 11.8 L Hct 36.5 L Plt Count 517 H Immature Gran % (Auto) 0.9 H Immature Gran # 0.08 H Meds: Medications Acetaminophen (Acetaminophen 325 Mg Tablet) 650 mg PO Q6HP PRN; Protocol PRN Reason: Per Pain Protocol/Fever > 101 Albuterol/Ipratropium (Ipratropium/Albuterol 3 Ml Ampul.Neb) 3 ml NEB Q4HRT PRN PRN Reason: Wheezing Amlodipine Besylate (Amlodipine 5 Mg Tablet) 10 mg PO DAILY [facility] Last Admin: 07/18/22 08:53 Dose: 10 mg Dextrose (Dextrose 50% 50 Ml Vial) 0 ml IV UD PRN PRN Reason: Per Sliding Scale Diagnostic Test (Pha) (Accu-Chek 1 Each Strip) 1 each FS ACHS [facility] Last Admin: 07/18/22 12:08 Dose: 1 each Diazepam (Diazepam 2 Mg Tablet) 2 mg PO Q12HP PRN PRN Reason: Anxiety Last Admin: 07/16/22 21:36 Dose: 2 mg Docusate Sodium (Docusate Sodium 100 Mg Capsule) 100 mg PO BID [facility] Last Admin: 07/18/22 08:52 Dose: 100 mg Enoxaparin Sodium (Enoxaparin 40 Mg/0.4 Ml Syringe) 40 mg SQ DAILY [facility] Last Admin: 07/18/22 08:52 Dose: 40 mg Glucose (Dextrose 31 Gm Oral.Susp) 15 gm PO PRN PRN PRN Reason: Hypoglycemia Hydromorphone HCl (Hydromorphone 0.5 Mg/0.5 Ml Syringe) 0.5 mg IV Q2HP PRN; Protocol PRN Reason: Per Pain Protocol Last Admin: 07/18/22 11:16 Dose: 0.5 mg Piperacillin Sod/Tazobactam (Sod 3.375 gm/ Dextrose) 50 mls @ 100 mls/hr IV Q6H [facility]; Protocol Last Infusion: 07/18/22 12:58 Dose: Infused Vancomycin HCl 1,500 mg/ (Sodium Chloride) 500 mls @ 333.3 mls/hr IV Q12H [facility] Last Infusion: 07/18/22 10:45 Dose: Infused CLINDAMYCIN IN 0.9 % SOD [facility] (Clindamycin 900 Mg/50 Ml-Ns) 900 mg in 50 mls @ 100 mls/hr IV Q8H [facility] Last Infusion: 07/18/22 15:10 Dose: Infused Insulin Human Lispro (Insulin Lispro 1 Unit/0.01 Ml Unit) 0 unit SQ ACHS [facility]; Protocol Last Admin: 07/18/22 12:10 Dose: Not Given Lorazepam (Lorazepam 1 Mg Tablet) 1 mg PO DAILYP PRN PRN Reason: ANXIETY/SEDATION Last Admin: 07/16/22 13:50 Dose: 1 mg Mupirocin (Mupirocin Oint 2% 22gm) 1 dose NARES BID [facility] Last Admin: 07/18/22 08:52 Dose: 1 dose Ondansetron HCl (Ondansetron 4 Mg/2 Ml Vial) 4 mg IV Q6HP PRN PRN Reason: Nausea And Vomiting Last Admin: 07/14/22 14:46 Dose: 4 mg Oxycodone HCl (Oxycodone Hcl 5 Mg Tablet) 5 mg PO Q4HP PRN; Protocol PRN Reason: Per Pain Protocol Last Admin: 07/18/22 11:15 Dose: 5 mg Senna (Sennosides 1 Tablet) 2 tab PO HS [facility] Last Admin: 07/17/22 21:06 Dose: 2 tab Sodium Chloride (0.9 % Sodium Chloride 10 Ml Syringe) 10 ml IV Q8 [facility] Last Admin: 07/18/22 16:12 Dose: Not Given Trazodone HCl (Trazodone Hcl 50 Mg Tablet) 25 mg PO HSP PRN PRN Reason: Insomnia Last Admin: 07/17/22 21:06 Dose: 25 mg Vancomycin HCl (Vancomycin Per Pharmacy) 1 order IV UD [facility]; Protocol A/P Narrative A/P Narrative: Assessment: 51-year-old male with a history of prediabetes, recently treated for right lower extremity cellulitis, discharged on Augmentin who returned to the ED with worsening right lower extremity pain. The patient was found to have a large open wound with an underlying abscess on his lower right lower extremity. He was admitted for debridement of necrotic tissue, washout, IV antibiotic treatment and wound cares. #Purulent right lower extremity cellulitis with underlying abscess status post debridement and washout #Elevated blood pressure #Normocytic anemia #Prediabetes Plan -General surgery following for surgical management. -Antibiotics per general surgery, currently IV vancomycin, Zosyn, clindamycin. -Follow all cultures. -Analgesics. -Wound cares and wound VAC management. -Continue Norvasc 10 mg daily. -Correction Humalog SSI. -Diabetic diet. -DVT prophylaxis: Lovenox -CODE STATUS: Full -Disposition: Probably home when stable, follow-up with general surgery. May need a skin graft at some point. Time Spent With Patient Time: Total time spent is greater than 50% in coordination of care (as documented) at patient's floor/unit and/or counseling patient: QUALITY VTE Deep Vein Thrombosis/Pulmonary Embolism Present on Admission: No
[2022-07-18] MEDS: SENNOSIDES 1 TABLET PO SCH (20:24)
[2022-07-19] MEDS: CLINDAMYCIN IN 0.9 % SOD CHLOR 900 MG/50 ML BAG IV SCH ×3 (05:04→21:04)
[2022-07-19] MEDS: 0.9 % SODIUM CHLORIDE 10 ML SYRINGE IV SCH ×3 (05:04→21:04)
[2022-07-19] MEDS: PIPERACILLIN SODIUM/TAZOBACTAM 3.375 GM in DEXTROSE 5% IN WATER 50 ML IV SCH ×4 (05:34→23:38)
[2022-07-19 07:14] LABS: Basophils # (Auto) 0.06 K/mcL (0.00-0.30); Basophils % (Auto) 0.7 % (0.0-2.0); Eosinophils # (Auto) 0.26 K/mcL (0.00-0.70); Eosinophils % (Auto) 2.9 % (0.0-7.0); Hematocrit 37.7 % (40.1-51.0); Hemoglobin 12.2 g/dL (13.7-17.5); Lymphocytes # (Auto) 3.03 K/mcL (1.50-4.80); Lymphocytes % (Auto) 34.2 % (15.5-49.0); Mean Cell Volume 94.7 fL (80.0-100.0); Mean Corpuscular HGB Conc 32.4 g/dL (31.0-36.0); Mean Platelet Volume 8.6 fL (7.4-10.4); Monocytes # (Auto) 0.76 K/mcL (0.10-0.90); Monocytes % (Auto) 8.6 % (1.0-12.0); Neutrophils % (Auto) 53.1 % (38.0-78.0); Platelet Count 529 K/mcL (140-440); RBC 3.98 M/mcL (4.63-6.08); Red Cell Distribution Width 12.6 % (11.5-14.5); WBC 8.9 K/mcL (4.5-11.0)
[2022-07-19 07:28] LABS: ALT/SGPT 19 U/L (<40); AST/SGOT 15 U/L (<40); Albumin 3.3 gm/dL (3.2-5.2); Albumin/Globulin Ratio 0.7 (1.0-2.3); Alkaline Phosphatase 57 U/L (39-117); Bilirubin,Direct < 0.2 mg/dL (0-0.3); Bilirubin,Total 0.5 mg/dL (0.1-1.0); Blood Urea Nitrogen 14 mg/dL (6-20); Calcium 8.8 mg/dL (8.6-10.4); Carbon Dioxide 22 mmol/L (22-30); Chloride 105 mmol/L (96-108); Globulin 4.8 gm/dL (2.2-3.7); Glomerular Filtration Rate 85; Glucose 95 mg/dL (70-105); Lactate Dehydrogenase 169 U/L (135-225); Triglycerides 119 mg/dL (<150); Uric Acid 4.6 mg/dL (2.5-8.0)
[2022-07-19] MEDS: INSULIN LISPRO 1 UNIT/0.01 ML UNIT SQ SCH ×4 (08:00→21:02)
[2022-07-19] MEDS: amLODIPine 5 MG TABLET PO SCH (08:47)
[2022-07-19] MEDS: DOCUSATE SODIUM 100 MG CAPSULE PO SCH ×2 (08:47→21:01)
[2022-07-19] MEDS: ENOXAPARIN 40 MG/0.4 ML SYRINGE SQ SCH (08:47)
[2022-07-19] MEDS: VANCOMYCIN 1,500 MG in 0.9 % SODIUM CHLORIDE 500 ML IV SCH (08:48)
[2022-07-19] MEDS: MUPIROCIN OINT 2% 22GM NARES SCH ×2 (08:48→21:01)
--- NOTE | 2022-07-19 09:23 | Internal Med Progress Note ---
SUBJECTIVE Subjective Patient information: Note initiated : 07/19/22 at 9:21 am Service Date, if different from initiated Date: [] Patient: Samir Montes 51 y/o M admitted on 07/12/22 for wound to right leg. Chief Complaint: [] Interval history: Mr. Montes is a 51 year old M history of prediabetes, recently admitted to our facility from June 11 to June 16 with right leg cellulitis, presenting with worsening of right leg and foot wound and pain. He was admitted from June 11 to June 16 in our facility for right leg cellulitis, and was being treated with bedside debridement and IV antibiotics first with IV vancomycin and Zosyn, which were then transitioned to oral Augmentin after the wound grew staph aureus. Patient stated that he finished the antibiotics and was doing great until today when he started to have acute worsening of shooting electrical pain that localized in his right foot, 9 out of 10 in intensity, intermittent, wi thout any associated subjective fever or shaking chills. There is also associated multiple ulcers on right whaley with pustular discharge, foul smelling, and surrounding erythema. He returned to our ED for reevaluation today. Vital signs significant for mild tachycardia with heart rate up to the 100s, leukocytosis with WBC 16.6, ESR 67, CRP 9.70, procalcitonin 0.16, and serum lactic acid 0.9. CT of the right leg showing large open wound in the mid whaley with underlying abscess. Normal tibia-fibula without evidence of osteomyelitis. 07/13: Status post expirations, debridement, washout, intraoperative wound cultures of the right lower leg wounds by general surgeon Dr. Read 07/12. All cultures no growth today. Afebrile overnight. Patient is currently denies any right leg pain. He denies any shortness of breath. He denies any fever, chills, or diaphoresis. Continue broad-spectrum IV antibiotics with vancomycin and Zosyn. Wound VAC pending later this afternoon. 07/14: Status post right lower leg wound VAC placement on July 13. Afebrile overnight. WBC 13.6. All cultures no growth today. Patient denies any fever or chills or diaphoresis. He denies any right lower leg pain. Continue wound VAC care. Continue broad-spectrum IV antibiotics with vancomycin and Zosyn. Continue physical therapy. 07/15: Patient is stable, afebrile overnight. General surgery planning to replace wound VAC tomorrow. Continue on vancomycin and Zosyn, will recheck CBC with differential tomorrow. 07/16: Blood pressure elevated, started Amlodipine. Wound VAC change today per general surgery. Leukocytosis resolved. Continues on Vancomycin and Zosyn. 07/17: Vitals stable overnight. Blood pressure improved with amlodipine. General surgery added clindamycin to vancomycin and Zosyn as a precaution, planning wound VAC change. 07/18: No significant events overnight, today the wound VAC was changed, on antibiotics per general surgery preference. General surgery plans to continue the same until at least Saturday. 07/19: Vital stable overnight. Wound cultures growing strep pyogenes, E. coli, Alcal igenes faecalis, methicillin sensitive staph aureus, and multiple anaerobe species. Patient continues on vancomycin and Zosyn per general surgery. Head: Atraumatic, normal inspection. Eyes: normal appearance, no scleral icterus. Neck: full ROM Respiratory: no respiratory distress. Cardiovascular: normal rate and rhythm, S1, S2. GI/Abdominal: soft, nontender, no guarding. Extremities: Large incision of soft tissue on anterior right leg, covered with wound VAC. Neurological: CN II-XII intact, intact motor, intact sensation. Psychiatric: normal mood. Skin: Cellulitic skin around wound of anterior right leg Constitutional Vitals: Vital Signs Temp Pulse Resp BP Pulse Ox O2 Del Method O2 Flow Rate 98.5 F 86 20 143/98 99 3 07/19/22 07:57 07/19/22 07:57 07/19/22 07:57 07/19/22 07:57 07/19/22 07:57 07/19/22 07:57 07/13/22 08:45 Period Temp Pulse Resp BP Sys/Wang Pulse Ox O2 Del Method O2 Flow Rate Last 24 Hr 97.2 F-98.7 F 85-96 16-20 134-158/90-100 96-99 Room Air-Room Air Intake and Output 07/18/22 07/19/22 07/19/22 21:59 05:59 13:59 Intake Total 460 700 50 Output Total 700 1175 Balance -240 -475 50 Weight 128.956 kg Intake & Output: Intake & Output 07/18/22 07/19/22 07/19/22 21:59 05:59 13:59 Intake Total 460 700 50 Output Total 700 1175 Balance -240 -475 50 Weight 128.956 kg Intake: IV 100 650 50 Zosyn 3.375 gm In Dextrose 5% 50 50 50 in Water 50 ml @ 100 mls/hr IV Q6H [facility] Rx#:[id number] Vancomycin 1,500 mg In Sodium 500 Chloride 0.9% 500 ml @ 333.3 mls/hr IV Q12H [facility] Rx#: [id number] Oral 360 50 Output: Void Amount 700 1175 Other: Meal Dinner Percent of Meal Consumed 100% Urine Appearance Clear Clear Urine Color Yellow Yellow Stool Size Large Stool Color Brown Stool Consistency Normal for Patient # Bowel Movements 1 OBJ DATA Labs CBC & Chem 7: 07/19/22 05:42 07/19/22 05:42 Labs: Abnormal Lab Results 07/19/22 07/19/22 05:42 05:42 RBC 3.98 L Hgb 12.2 L Hct 37.7 L Plt Count 529 H Globulin 4.8 H Albumin/Globulin Ratio 0.7 L Meds: Medications Acetaminophen (Acetaminophen 325 Mg Tablet) 650 mg PO Q6HP PRN; Protocol PRN Reason: Per Pain Protocol/Fever > 101 Albuterol/Ipratropium (Ipratropium/Albuterol 3 Ml Ampul.Neb) 3 ml NEB Q4HRT PRN PRN Reason: Wheezing Amlodipine Besylate (Amlodipine 5 Mg Tablet) 10 mg PO DAILY [facility] Last Admin: 07/19/22 08:47 Dose: 10 mg Dextrose (Dextrose 50% 50 Ml Vial) 0 ml IV UD PRN PRN Reason: Per Sliding Scale Diagnostic Test (Pha) (Accu-Chek 1 Each Strip) 1 each FS ACHS [facility] Last Admin: 07/19/22 08:00 Dose: 1 each Diazepam (Diazepam 2 Mg Tablet) 2 mg PO Q12HP PRN PRN Reason: Anxiety Last Admin: 07/16/22 21:36 Dose: 2 mg Docusate Sodium (Docusate Sodium 100 Mg Capsule) 100 mg PO BID [facility] Last Admin: 07/19/22 08:47 Dose: 100 mg Enoxaparin Sodium (Enoxaparin 40 Mg/0.4 Ml Syringe) 40 mg SQ DAILY [facility] Last Admin: 07/19/22 08:47 Dose: 40 mg Glucose (Dextrose 31 Gm Oral.Susp) 15 gm PO PRN PRN PRN Reason: Hypoglycemia Hydromorphone HCl (Hydromorphone 0.5 Mg/0.5 Ml Syringe) 0.5 mg IV Q2HP PRN; Protocol PRN Reason: Per Pain Protocol Last Admin: 07/18/22 11:16 Dose: 0.5 mg Piperacillin Sod/Tazobactam (Sod 3.375 gm/ Dextrose) 50 mls @ 100 mls/hr IV Q6H [facility]; Protocol Last Infusion: 07/19/22 06:04 Dose: Infused Vancomycin HCl 1,500 mg/ (Sodium Chloride) 500 mls @ 333.3 mls/hr IV Q12H [facility] Last Admin: 07/19/22 08:48 Dose: 333 mls/hr CLINDAMYCIN IN 0.9 % SOD CHLOR (Clindamycin 900 Mg/50 Ml-Ns) 900 mg in 50 mls @ 100 mls/hr IV Q8H [facility] Last Infusion: 07/19/22 05:34 Dose: Infused Insulin Human Lispro (Insulin Lispro 1 Unit/0.01 Ml Unit) 0 unit SQ ACHS [facility]; Protocol Last Admin: 07/19/22 08:00 Dose: Not Given Lorazepam (Lorazepam 1 Mg Tablet) 1 mg PO DAILYP PRN PRN Reason: ANXIETY/SEDATION Last Admin: 07/16/22 13:50 Dose: 1 mg Mupirocin (Mupirocin Oint 2% 22gm) 1 dose NARES BID [facility] Last Admin: 07/19/22 08:48 Dose: 1 dose Ondansetron HCl (Ondansetron 4 Mg/2 Ml Vial) 4 mg IV Q6HP PRN PRN Reason: Nausea And Vomiting Last Admin: 07/14/22 14:46 Dose: 4 mg Oxycodone HCl (Oxycodone Hcl 5 Mg Tablet) 5 mg PO Q4HP PRN; Protocol PRN Reason: Per Pain Protocol Last Admin: 07/18/22 11:15 Dose: 5 mg Senna (Sennosides 1 Tablet) 2 tab PO HS [facility] Last Admin: 07/18/22 20:24 Dose: 2 tab Sodium Chloride (0.9 % Sodium Chloride 10 Ml Syringe) 10 ml IV Q8 [facility] Last Admin: 07/19/22 05:04 Dose: 10 ml Trazodone HCl (Trazodone Hcl 50 Mg Tablet) 25 mg PO HSP PRN PRN Reason: Insomnia Last Admin: 07/17/22 21:06 Dose: 25 mg Vancomycin HCl (Vancomycin Per Pharmacy) [address] [facility] [place] Protocol A/P Narrative A/P Narrative: Assessment: 51-year-old male with a history of prediabetes, recently treated for right lower extremity cellulitis, discharged on Augmentin who returned to the ED with worsening right lower extremity pain. The patient was found to have a large open wound with an underlying abscess on his lower right lower extremity. He was admitted for debridement of necrotic tissue, washout, IV antibiotic treatment and wound cares. The patient has been on broad-spectrum antibiotics per general surgery, wound VAC was changed 07/18/22, the plan is to continue current antibiotics until at least 07/20/2022 #Purulent right lower extremity cellulitis with underlying abscess status post debridement and washout #Elevated blood pressure #Normocytic anemia #Prediabetes Plan -General surgery following for surgical management. -Antibiotics per general surgery, currently IV vancomycin, Zosyn, and clindamycin. -Follow all cultures. -Analgesics. -Wound cares and wound VAC management. -Continue Norvasc 10 mg daily. -Correction Humalog SSI. -Diabetic diet. -DVT prophylaxis: Lovenox -CODE STATUS: Full -Disposition: Probably home when stable, follow-up with general surgery. Time Spent With Patient Time: Total time spent is greater than 50% in coordination of care (as documented) at patient's floor/unit and/or counseling patient: QUALITY VTE Deep Vein Thrombosis/Pulmonary Embolism Present on Admission: No
--- NOTE | 2022-07-19 14:47 | Internal Med Progress Note ---
SUBJECTIVE Subjective Patient information: Note initiated : 07/19/22 at 2:44 pm Service Date, if different from initiated Date: [] Patient: Samir Montes 51 y/o M admitted on 07/12/22 for wound to right leg. Chief Complaint: [] Interval history: Mr. Montes is a 51 year old M history of prediabetes, recently admitted to our facility from June 11 to June 16 with right leg cellulitis, presenting with worsening of right leg and foot wound and pain. He was admitted from June 11 to June 16 in our facility for right leg cellulitis, and was being treated with bedside debridement and IV antibiotics first with IV vancomycin and Zosyn, which were then transitioned to oral Augmentin after the wound grew staph aureus. Patient stated that he finished the antibiotics and was doing great until today when he started to have acute worsening of shooting electrical pain that localized in his right foot, 9 out of 10 in intensity, intermittent, wi thout any associated subjective fever or shaking chills. There is also associated multiple ulcers on right whaley with pustular discharge, foul smelling, and surrounding erythema. He returned to our ED for reevaluation today. Vital signs significant for mild tachycardia with heart rate up to the 100s, leukocytosis with WBC 16.6, ESR 67, CRP 9.70, procalcitonin 0.16, and serum lactic acid 0.9. CT of the right leg showing large open wound in the mid whaley with underlying abscess. Normal tibia-fibula without evidence of osteomyelitis. 07/13: Status post expirations, debridement, washout, intraoperative wound cultures of the right lower leg wounds by general surgeon Dr. Read 07/12. All cultures no growth today. Afebrile overnight. Patient is currently denies any right leg pain. He denies any shortness of breath. He denies any fever, chills, or diaphoresis. Continue broad-spectrum IV antibiotics with vancomycin and Zosyn. Wound VAC pending later this afternoon. 07/14: Status post right lower leg wound VAC placement on July 13. Afebrile overnight. WBC 13.6. All cultures no growth today. Patient denies any fever or chills or diaphoresis. He denies any right lower leg pain. Continue wound VAC care. Continue broad-spectrum IV antibiotics with vancomycin and Zosyn. Continue physical therapy. 07/15: Patient is stable, afebrile overnight. General surgery planning to replace wound VAC tomorrow. Continue on vancomycin and Zosyn, will recheck CBC with differential tomorrow. 07/16: Blood pressure elevated, started Amlodipine. Wound VAC change today per general surgery. Leukocytosis resolved. Continues on Vancomycin and Zosyn. 07/17: Vitals stable overnight. Blood pressure improved with amlodipine. General surgery added clindamycin to vancomycin and Zosyn as a precaution, planning wound VAC change. 07/18: No significant events overnight, today the wound VAC was changed, on antibiotics per general surgery preference. General surgery plans to continue the same until at least Saturday. 07/19: Vital stable overnight. Wound cultures growing strep pyogenes, E. coli, Alcal igenes faecalis, methicillin sensitive staph aureus, and multiple anaerobe species. Patient continues on vancomycin and Zosyn per general surgery. 07/20 Constitutional Vitals: Vital Signs Temp Pulse Resp BP Pulse Ox O2 Del Method O2 Flow Rate 98.7 F 89 16 132/85 99 3 07/19/22 12:00 07/19/22 12:00 07/19/22 12:00 07/19/22 12:07/19/22 12:07/19/22 12:00 07/13/22 08:45 Period Temp Pulse Resp BP Sys/Wang Pulse Ox O2 Del Method O2 Flow Rate Last 24 Hr 97.4 F-98.7 F 85-90 16-20 132-158/85-100 96-99 Room Air-Room Air Intake and Output 07/19/22 07/19/22 07/19/22 05:59 13:59 21:59 Intake Total 700 2680 Output Total 1175 500 Balance -475 2180 Intake & Output: Intake & Output 07/19/22 07/19/22 07/19/22 05:59 13:59 21:59 Intake Total 700 2680 Output Total 1175 500 Balance -475 2180 Intake: Nourishment/Supplement quantity 240 (ml) IV 650 600 Zosyn 3.375 gm In Dextrose 5% 50 100 in Water 50 ml @ 100 mls/hr IV Q6H [facility] Rx#:[id number] Vancomycin 1,500 mg In Sodium 500 500 Chloride 0.9% 500 ml @ 333.3 mls/hr IV Q12H [facility] Rx#: [id number] Oral 50 1840 Output: Void Amount 1175 500 Other: Meal Lunch Percent of Meal Consumed 100% Feeding Ability Independent Urine Appearance Clear Clear Urine Color Yellow Yellow Urine Odor Normal Stool Size Large Stool Color Brown Stool Consistency Normal for Patient # Bowel Movements 1 Exam: General: Alert, Awake, No acute Distress Eyes/N/T: EOMI, Head/Neck: neck supple, CV: RRR, No murmurs, Pulm: Clear b/l, no wheezing/rhonchi/rales Abd: soft, nontender, +BS x4 Ext: no clubbing/cyanosis/edema. Large incision of soft tissue on anterior right leg, covered with wound VAC. Neuro: Alert, no focal deficits, moves all extremities, Skin: warm/dry OBJ DATA Labs CBC & Chem 7: 07/19/22 05:42 07/19/22 05:42 Labs: Abnormal Lab Results 07/19/22 07/19/22 07/19/22 08:16 05:42 05:42 RBC 3.98 L Hgb 12.2 L Hct 37.7 L Plt Count 529 H Globulin 4.8 H Albumin/Globulin Ratio 0.7 L Vancomycin Trough 22.9 H* Meds: Medications Acetaminophen (Acetaminophen 325 Mg Tablet) 650 mg PO Q6HP PRN; Protocol PRN Reason: Per Pain Protocol/Fever > 101 Albuterol/Ipratropium (Ipratropium/Albuterol 3 Ml Ampul.Neb) 3 ml NEB Q4HRT PRN PRN Reason: Wheezing Amlodipine Besylate (Amlodipine 5 Mg Tablet) 10 mg PO DAILY [facility] Last Admin: 07/19/22 08:47 Dose: 10 mg Dextrose (Dextrose 50% 50 Ml Vial) 0 ml IV UD PRN PRN Reason: Per Sliding Scale Diagnostic Test (Pha) (Accu-Chek 1 Each Strip) 1 each FS ACHS [facility] Last Admin: 07/19/22 11:34 Dose: 1 each Diazepam (Diazepam 2 Mg Tablet) 2 mg PO Q12HP PRN PRN Reason: Anxiety Last Admin: 07/16/22 21:36 Dose: 2 mg Docusate Sodium (Docusate Sodium 100 Mg Capsule) 100 mg PO BID [facility] Last Admin: 07/19/22 08:47 Dose: 100 mg Enoxaparin Sodium (Enoxaparin 40 Mg/0.4 Ml Syringe) 40 mg SQ DAILY [facility] Last Admin: 07/19/22 08:47 Dose: 40 mg Glucose (Dextrose 31 Gm Oral.Susp) 15 gm PO PRN PRN PRN Reason: Hypoglycemia Hydromorphone HCl (Hydromorphone 0.5 Mg/0.5 Ml Syringe) 0.5 mg IV Q2HP PRN; Protocol PRN Reason: Per Pain Protocol Last Admin: 07/18/22 11:16 Dose: 0.5 mg Piperacillin Sod/Tazobactam (Sod 3.375 gm/ Dextrose) 50 mls @ 100 mls/hr IV Q6H [facility]; Protocol Last Infusion: 07/19/22 12:30 Dose: Infused CLINDAMYCIN IN 0.9 % SOD CHLOR (Clindamycin 900 Mg/50 Ml-Ns) 900 mg in 50 mls @ 100 mls/hr IV Q8H [facility] Last Admin: 07/19/22 14:12 Dose: 100 mls/hr Insulin Human Lispro (Insulin Lispro 1 Unit/0.01 Ml Unit) 0 unit SQ ACHS [facility]; Protocol Last Admin: 07/19/22 12:31 Dose: Not Given Lorazepam (Lorazepam 1 Mg Tablet) 1 mg PO DAILYP PRN PRN Reason: ANXIETY/SEDATION Last Admin: 07/16/22 13:50 Dose: 1 mg Mupirocin (Mupirocin Oint 2% 22gm) 1 dose NARES BID [facility] Last Admin: 07/19/22 08:48 Dose: 1 dose Ondansetron HCl (Ondansetron 4 Mg/2 Ml Vial) 4 mg IV Q6HP PRN PRN Reason: Nausea And Vomiting Last Admin: 07/14/22 14:46 Dose: 4 mg Oxycodone HCl (Oxycodone Hcl 5 Mg Tablet) 5 mg PO Q4HP PRN; Protocol PRN Reason: Per Pain Protocol Last Admin: 07/18/22 11:15 Dose: 5 mg Senna (Sennosides 1 Tablet) 2 tab PO HS [facility] Last Admin: 07/18/22 20:24 Dose: 2 tab Sodium Chloride (0.9 % Sodium Chloride 10 Ml Syringe) 10 ml IV Q8 [facility] Last Admin: 07/19/22 14:13 Dose: 10 ml Trazodone HCl (Trazodone Hcl 50 Mg Tablet) 25 mg PO HSP PRN PRN Reason: Insomnia Last Admin: 07/17/22 21:06 Dose: 25 mg Vancomycin HCl (Vancomycin Per Pharmacy) 1 order IV UD [facility]; Protocol A/P Narrative A/P Narrative: A: #Purulent right lower extremity cellulitis with underlying abscess: s/p I&D () #HTN: untreated #Normocytic anemia: #Prediabetes: Plan: -General surgery following for surgical management. -Antibiotics per general surgery, currently IV vancomycin, Zosyn, and clindamycin. -Follow all cultures. -Analgesics. -Wound cares and wound VAC management. -Continue Norvasc 10 mg daily. -Humalog SSI. -Disposition Probably home when stable, follow-up with general surgery. 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
[2022-07-19] MEDS: SENNOSIDES 1 TABLET PO SCH (21:02)
[2022-07-20] MEDS: CLINDAMYCIN IN 0.9 % SOD CHLOR 900 MG/50 ML BAG IV SCH ×2 (05:12→13:58)
[2022-07-20] MEDS: PIPERACILLIN SODIUM/TAZOBACTAM 3.375 GM in DEXTROSE 5% IN WATER 50 ML IV SCH ×2 (05:45→12:17)
[2022-07-20] MEDS: 0.9 % SODIUM CHLORIDE 10 ML SYRINGE IV SCH ×2 (05:46→13:59)
[2022-07-20] MEDS: INSULIN LISPRO 1 UNIT/0.01 ML UNIT SQ SCH ×2 (07:27→11:09)
--- NOTE | 2022-07-20 08:08 | Internal Med Progress Note ---
SUBJECTIVE Subjective Patient information: Note initiated : 07/20/22 at 8:04 am Service Date, if different from initiated Date: [] Patient: Samir Montes 51 y/o M admitted on 07/12/22 for wound to right leg. Chief Complaint: [] Interval history: Mr. Montes is a 51 year old M history of prediabetes, recently admitted to our facility from June 11 to June 16 with right leg cellulitis, presenting with worsening of right leg and foot wound and pain. He was admitted from June 11 to June 16 in our facility for right leg cellulitis, and was being treated with bedside debridement and IV antibiotics first with IV vancomycin and Zosyn, which were then transitioned to oral Augmentin after the wound grew staph aureus. Patient stated that he finished the antibiotics and was doing great until today when he started to have acute worsening of shooting electrical pain that localized in his right foot, 9 out of 10 in intensity, intermittent, wi thout any associated subjective fever or shaking chills. There is also associated multiple ulcers on right whaley with pustular discharge, foul smelling, and surrounding erythema. He returned to our ED for reevaluation today. Vital signs significant for mild tachycardia with heart rate up to the 100s, leukocytosis with WBC 16.6, ESR 67, CRP 9.70, procalcitonin 0.16, and serum lactic acid 0.9. CT of the right leg showing large open wound in the mid whaley with underlying abscess. Normal tibia-fibula without evidence of osteomyelitis. 07/13: Status post expirations, debridement, washout, intraoperative wound cultures of the right lower leg wounds by general surgeon Dr. Read 07/12. All cultures no growth today. Afebrile overnight. Patient is currently denies any right leg pain. He denies any shortness of breath. He denies any fever, chills, or diaphoresis. Continue broad-spectrum IV antibiotics with vancomycin and Zosyn. Wound VAC pending later this afternoon. 07/14: Status post right lower leg wound VAC placement on July 13. Afebrile overnight. WBC 13.6. All cultures no growth today. Patient denies any fever or chills or diaphoresis. He denies any right lower leg pain. Continue wound VAC care. Continue broad-spectrum IV antibiotics with vancomycin and Zosyn. Continue physical therapy. 07/15: Patient is stable, afebrile overnight. General surgery planning to replace wound VAC tomorrow. Continue on vancomycin and Zosyn, will recheck CBC with differential tomorrow. 07/16: Blood pressure elevated, started Amlodipine. Wound VAC change today per general surgery. Leukocytosis resolved. Continues on Vancomycin and Zosyn. 07/17: Vitals stable overnight. Blood pressure improved with amlodipine. General surgery added clindamycin to vancomycin and Zosyn as a precaution, planning wound VAC change. 07/18: No significant events overnight, today the wound VAC was changed, on antibiotics per general surgery preference. General surgery plans to continue the same until at least Saturday. 07/19: Vital stable overnight. Wound cultures growing strep pyogenes, E. coli, Alcal igenes faecalis, methicillin sensitive staph aureus, and multiple anaerobe species. Patient continues on vancomycin and Zosyn per general surgery. 07/20 No overnight event or new complaints. Wound VAC in place and further debridement Rx per surgery. Review of Systems: denies headache/fever/chills/nausea/vomiting/chest or abdominal pain/cough/dyspnea/diarrhea. Otherwise see above. Constitutional Vitals: Vital Signs Temp Pulse Resp BP Pulse Ox O2 Del Method O2 Flow Rate 98.6 F 87 20 148/96 99 3 07/20/22 07:19 07/20/22 03:40 07/20/22 07:42 07/20/22 07:19 07/20/22 07:42 07/20/22 07:42 07/13/22 08:45 Period Temp Pulse Resp BP Sys/Wang Pulse Ox O2 Del Method O2 Flow Rate Last 24 Hr 97.7 F-98.7 F 85-89 16-20 132-158/85-102 97-100 Room Air-Room Air Intake and Output 07/19/22 07/20/22 07/20/22 21:59 05:59 13:59 Intake Total 390 100 50 Output Total 1575 1425 Balance -1185 -1325 50 Weight 128.775 kg Intake & Output: Intake & Output 07/19/22 07/20/22 07/20/22 21:59 05:59 13:59 Intake Total 390 100 50 Output Total 1575 1425 Balance -1185 -1325 50 Weight 128.775 kg Intake: IV 150 100 50 Zosyn 3.375 gm In Dextrose 5% 50 50 50 in Water 50 ml @ 100 mls/hr IV Q6H [facility] Rx#:[id number] Oral 240 0 Output: Void Amount 8925 1425 Other: Meal Dinner Percent of Meal Consumed 100% Feeding Ability Independent Urine Appearance Clear Clear Clear Urine Color Yellow Yellow Yellow Pale Urine Odor Normal Stool Size Moderate Stool Consistency Soft # Voids 1 # Bowel Movements 1 Exam: General: Alert, Awake, No acute Distress Eyes/N/T: EOMI, Head/Neck: neck supple, CV: RRR, No murmurs, Pulm: Clear b/l, no wheezing/rhonchi/rales Abd: soft, nontender, +BS x4 Ext: no clubbing/cyanosis/edema. Large incision of soft tissue on anterior right leg, covered with wound VAC. Neuro: Alert, no focal deficits, moves all extremities, Skin: warm/dry OBJ DATA Labs CBC & Chem 7: 07/19/22 05:42 07/19/22 05:42 Labs: Abnormal Lab Results 07/19/22 07/19/22 07/19/22 08:16 05:42 05:42 RBC 3.98 L Hgb 12.2 L Hct 37.7 L Plt Count 529 H Globulin 4.8 H Albumin/Globulin Ratio 0.7 L Vancomycin Trough 22.9 H* Meds: Medications Acetaminophen (Acetaminophen 325 Mg Tablet) 650 mg PO Q6HP PRN; Protocol PRN Reason: Per Pain Protocol/Fever > 101 Albuterol/Ipratropium (Ipratropium/Albuterol 3 Ml Ampul.Neb) 3 ml NEB Q4HRT PRN PRN Reason: Wheezing Amlodipine Besylate (Amlodipine 5 Mg Tablet) 10 mg PO DAILY [facility] Last Admin: 07/19/22 08:47 Dose: 10 mg Dextrose (Dextrose 50% 50 Ml Vial) 0 ml IV UD PRN PRN Reason: Per Sliding Scale Diagnostic Test (Pha) (Accu-Chek 1 Each Strip) 1 each FS ACHS [facility] Last Admin: 07/20/22 07:27 Dose: 1 each Diazepam (Diazepam 2 Mg Tablet) 2 mg PO Q12HP PRN PRN Reason: Anxiety Last Admin: 07/16/22 21:36 Dose: 2 mg Docusate Sodium (Docusate Sodium 100 Mg Capsule) 100 mg PO BID [facility] Last Admin: 07/19/22 21:01 Dose: 100 mg Enoxaparin Sodium (Enoxaparin 40 Mg/0.4 Ml Syringe) 40 mg SQ DAILY [facility] Last Admin: 07/19/22 08:47 Dose: 40 mg Glucose (Dextrose 31 Gm Oral.Susp) 15 gm PO PRN PRN PRN Reason: Hypoglycemia Hydromorphone HCl (Hydromorphone 0.5 Mg/0.5 Ml Syringe) 0.5 mg IV Q2HP PRN; Protocol PRN Reason: Per Pain Protocol Last Admin: 07/18/22 11:16 Dose: 0.5 mg Piperacillin Sod/Tazobactam (Sod 3.375 gm/ Dextrose) 50 mls @ 100 mls/hr IV Q6H [facility]; Protocol Last Infusion: 07/20/22 06:15 Dose: Infused CLINDAMYCIN IN 0.9 % SOD CHLOR (Clindamycin 900 Mg/50 Ml-Ns) 900 mg in 50 mls @ 100 mls/hr IV Q8H [facility] Last Infusion: 07/20/22 05:46 Dose: Infused Insulin Human Lispro (Insulin Lispro 1 Unit/0.01 Ml Unit) 0 unit SQ ACHS [facility]; Protocol Last Admin: 07/20/22 07:27 Dose: Not Given Lorazepam (Lorazepam 1 Mg Tablet) 1 mg PO DAILYP PRN PRN Reason: ANXIETY/SEDATION Last Admin: 07/16/22 13:50 Dose: 1 mg Mupirocin (Mupirocin Oint 2% 22gm) 1 dose NARES BID [facility] Last Admin: 07/19/22 21:01 Dose: 1 dose Ondansetron HCl (Ondansetron 4 Mg/2 Ml Vial) 4 mg IV Q6HP PRN PRN Reason: Nausea And Vomiting Last Admin: 07/14/22 14:46 Dose: 4 mg Oxycodone HCl (Oxycodone Hcl 5 Mg Tablet) 5 mg PO Q4HP PRN; Protocol PRN Reason: Per Pain Protocol Last Admin: 07/18/22 11:15 Dose: 5 mg Senna (Sennosides 1 Tablet) 2 tab PO HS [facility] Last Admin: 07/19/22 21:02 Dose: Not Given Sodium Chloride (0.9 % Sodium Chloride 10 Ml Syringe) 10 ml IV Q8 [facility] Last Admin: 07/20/22 05:46 Dose: 10 ml Trazodone HCl (Trazodone Hcl 50 Mg Tablet) 25 mg PO HSP PRN PRN Reason: Insomnia Last Admin: 07/17/22 21:06 Dose: 25 mg Vancomycin HCl (Vancomycin Per Pharmacy) 1 order IV UD [facility]; Protocol A/P Narrative A/P Narrative: A: #Purulent right lower extremity cellulitis with underlying abscess: s/p I&D (07/12) -WC with Strep pyognes/GNB/MSSA/E.coli #HTN: untreated #Normocytic anemia: #Prediabetes: Plan: -General surgery following for surgical management -Antibiotics per general surgery, currently IV vancomycin, Zosyn, and clindamycin. -Analgesics. -Wound cares and wound VAC management. -started Norvasc 10 mg daily. -Humalog SSI -Disposition Probably home when stable, follow-up with general surgery. -DVT prophylaxis: Lovenox CODE STATUS: Seam Checker Spent With Patient Time: Total time spent is greater than 50% in coordination of care (as documented) at patient's floor/unit and/or counseling patient: Total time spent with greater than 50% in coordination of care (as documented) at patient's floor/unit and/or counseling patient:: 25 - 35 minutes QUALITY VTE Deep Vein Thrombosis/Pulmonary Embolism Present on Admission: No
[2022-07-20] MEDS: amLODIPine 5 MG TABLET PO SCH (08:42)
[2022-07-20] MEDS: DOCUSATE SODIUM 100 MG CAPSULE PO SCH (08:42)
[2022-07-20] MEDS: ENOXAPARIN 40 MG/0.4 ML SYRINGE SQ SCH (08:42)
[2022-07-20] MEDS: MUPIROCIN OINT 2% 22GM NARES SCH (08:43)
[2022-07-20 09:06] LABS: Vancomycin,Random 15.4 ug/mL
[2022-07-20] MEDS ORDERED: VANCOMYCIN 1,500 MG in 0.9 % SODIUM CHLORIDE 500 ML IV ONE (10:15)
--- NOTE | 2022-07-20 10:20 | General Surgery Progress Note ---
SUBJECTIVE Subjective Patient information: Note initiated : 07/20/22 at 10:15 am Service Date, if different from initiated Date: [] Patient: Samir Montes 51 y/o M admitted on 07/12/22 for wound to right leg. Chief Complaint: [] Continues to do well, much improved overall Constitutional Vitals: Vital Signs Temp Pulse Resp BP Pulse Ox O2 Del Method O2 Flow Rate 98.6 F 87 20 148/96 99 3 07/20/22 07:19 07/20/22 03:40 07/20/22 07:42 07/20/22 07:19 07/20/22 07:42 07/20/22 07:42 07/13/22 08:45 Period Temp Pulse Resp BP Sys/Wang Pulse Ox O2 Del Method O2 Flow Rate Last 24 Hr 97.7 F-98.7 F 85-89 16-20 132-158/85-102 97-100 Room Air-Room Air Intake and Output 07/19/22 07/20/22 07/20/22 21:59 05:59 13:59 Intake Total 390 100 50 Output Total 1575 1425 Balance -1185 -1325 50 Weight 283 lb 14.4 oz Intake & Output: Intake & Output 07/19/22 07/20/22 07/20/22 21:59 05:59 13:59 Intake Total 390 100 50 Output Total 1575 1425 Balance -1185 -1325 50 Weight 283 lb 14.4 oz Intake: IV 150 100 50 Zosyn 3.375 gm In Dextrose 5% 50 50 50 in Water 50 ml @ 100 mls/hr IV Q6H [facility] Rx#:[id number] Oral 240 0 Output: Void Amount 1575 1425 Other: Meal Dinner Percent of Meal Consumed 100% Feeding Ability Independent Urine Appearance Clear Clear Clear Urine Color Yellow Yellow Yellow Pale Urine Odor Normal Stool Size Moderate Stool Consistency Soft # Voids 1 # Bowel Movements 1 Exam: Looks well, NAD Extremities Exam Additional comments: The Right Leg wound continues to look good with excellent granulation in the wound bed, minimal to no odor or slough A/P Assessment and plan (1) Leg wound, right: Assessment and plan: Necrotizing Soft Tissue Infection of the Right Lower Leg Doing Well Ok for discharge today from Surgical Standpoint Send out on oral ABs to include Bactrim DS one tab PO BID along with Cipro 500 mg po bid for the next 14 days Clinic follow up with Dr Read followed by referral to the Wound Clinic Status: Acute Time Spent With Patient Time: Total time spent is greater than 50% in coordination of care (as documented) at patient's floor/unit and/or counseling patient:
--- NOTE | 2022-07-20 12:26 | Discharge Summary ---
Discharge Provider Provider IMPORTANT FOLLOW-UP INFORMATION FOR PCP: Patient information: Note initiated : 07/20/22 at 12:24 pm Service Date, if different from initiated Date: [] Patient: Samir Montes 51 y/o M admitted on 07/12/22 for wound to right leg. Chief Complaint: [] Date of admission: 07/12/22 20:04 Discharge date: 07/20/22 Primary care physician: PCP No Consults: 07/12/22 Consult to Physician [CONS] Stat Comment: Consulting Provider: Finn Mathias Reason For Exam: Physician to Consult 07/12/22 14:29 Consult to Physician [CONS] Stat Comment: Consulting Provider: Calvin Read Reason For Exam: Physician to Consult COURSE Hospital Course Hospital course: Interval history: Mr. Montes is a 51 year old M history of prediabetes, recently admitted to our facility from June 11 to June 16 with right leg cellulitis, presenting with worsening of right leg and foot wound and pain. He was admitted from June 11 to June 16 in our facility for right leg cellulitis, and was being treated with bedside debridement and IV antibiotics first with IV vancomycin and Zosyn, which were then transitioned to oral Augmentin after the wound grew staph aureus. Patient stated that he finished the antibiotics and was doing great until today when he started to have acute worsening of shooting electrical pain that localized in his right foot, 9 out of 10 in intensity, intermittent, without any associated subjective fever or shaking chills. There is also associated multiple ulcers on right whaley with pustular discharge, foul smelling, and surrounding erythema. He returned to our ED for reevaluation today. Vital signs significant for mild tachycardia with heart rate up to the 100s, leukocytosis with WBC 16.6, ESR 67, CRP 9.70, procalcitonin 0.16, and serum lactic acid 0.9. CT of the right leg showing large open wound in the mid whaley with underlying abscess. Normal tibia-fibula without evidence of osteomyelitis. 07/13: Status post expirations, debridement, washout, intraoperative wound cultures of the right lower leg wounds by general surgeon Dr. Read 07/12. All cultures no growth today. Afebrile overnight. Patient is currently denies any right leg pain. He denies any shortness of breath. He denies any fever, chills, or diaphoresis. Continue broad-spectrum IV antibiotics with vancomycin and Zosyn. Wound VAC pending later this afternoon. 07/14: Status post right lower leg wound VAC placement on July 13. Afebrile overnight. WBC 13.6. All cultures no growth today. Patient denies any fever or chills or diaphoresis. He denies any right lower leg pain. Continue wound VAC care. Continue broad-spectrum IV antibiotics with vancomycin and Zosyn. Continue physical therapy. 07/15: Patient is stable, afebrile overnight. General surgery planning to replace wound VAC tomorrow. Continue on vancomycin and Zosyn, will recheck CBC with differential tomorrow. 07/16: Blood pressure elevated, started Amlodipine. Wound VAC change today per general surgery. Leukocytosis resolved. Continues on Vancomycin and Zosyn. 07/17: Vitals stable overnight. Blood pressure improved with amlodipine. General surgery added clindamycin to vancomycin and Zosyn as a precaution, planning wound VAC change. 07/18: No significant events overnight, today the wound VAC was changed, on antibiotics per general surgery preference. General surgery plans to continue the same until at least Saturday. 07/19: Vital stable overnight. Wound cultures growing strep pyogenes, E. coli, Alcaligenes faecalis, methicillin sensitive staph aureus, and multiple anaerobe species. Patient continues on vancomycin and Zosyn per general surgery. 07/20 No overnight event or new complaints. Wound VAC in place and further debridement Rx per surgery. A: #Purulent right lower extremity cellulitis with underlying abscess: s/p I&D (07/12) -WC withStrep pyognes/GNB/MSSA/E.coli #HTN: untreated #Normocytic anemia: #Prediabetes: Plan: -Wound cares and wound VAC management. -Oral antibiotics per surgery Bactrim and Cipro -started Norvasc 10 mg daily. Discharge diagnosis: Right lower extremity necrotizing soft tissue infection hypertension Secondary discharge diagnosis: Anemia prediabetes Time Spent with Patient Time attestation: Total time spent providing and/or coordinating discharge services: Time spent: Greater than 30 minutes EXAM Constitutional Vitals: Temp Pulse Resp BP Pulse Ox O2 Del Method O2 Flow Rate 98.6 F 87 20 148/96 99 3 07/20/22 07:19 07/20/22 03:40 07/20/22 10:36 07/20/22 07:19 07/20/22 10:36 07/20/22 10:36 07/13/22 08:45 Discharge Data Data Completed and Pending Labs on day of discharge: Labs from last 24 hours 07/20/22 08:11 Random Vancomycin 15.4 Preliminary micro results at discharge 07/12/22 19:15 Wound Culture - Preliminary Wound - Superficial Strep pyogenes (grp a) Gram negative bacillus Staphylococcus aureus#2 Escherichia coli#2 Discharge Plan Patient/Caregiver Discharge Instructions Activity: increase activity as tolerated Diet: Consistent Carbohydrate Activity Restrictions/Additional Instructions: Home Wound Vac education provided. Refer to [facility]/3M VAC manual. If unable to problem solve any VAC concerns present to the ER. Follow-up with PCP in 3 to 7 days. Prescriptions: New amlodipine 5 mg Tablet 10 mg PO DAILY Qty: 30 0RF sulfamethoxazole-trimethoprim [Bactrim DS] 800-160 mg tablet 1 tab PO BID Qty: 28 0RF ciprofloxacin HCl [Cipro] 500 mg tablet 500 mg PO BID Qty: 28 0RF Follow Up Plan Follow up with: Calvin Read MD [Physician] - 07/23/22 8:15 am (Follow up with Dr. Read next week. Nurse visits Saturday, Saturday and Saturday for wound vac changes. You will see Dr. Read on Sat @ 3:15 pm for follow up and wound vac dressing change. They will then give you a Saturday appointment time.) Patient Disposition: Home, Self-Care Prognosis: Fair Rehab Potential: Fair Discharge Orders: Discharge Order (Routine); Ordered 07/20/22 [facility]/Pulmonary Embolism Present on Admission: No
[2022-07-20] MEDS ORDERED: FUROSEMIDE 40 MG TABLET PO ONE (12:29)
[2022-07-20] MEDS ORDERED: cloNIDine HCL 0.1 MG TABLET PO SCH (12:30)
[2022-07-20] MEDS ORDERED: LABETALOL 5 MG/ML ML IV PRN (12:53)
[2022-07-20] MEDS ORDERED: hydrALAZINE 20 MG/ML VIAL IV PRN (12:53)
[2022-07-21] MEDS ORDERED: VANCOMYCIN 1,500 MG in 0.9 % SODIUM CHLORIDE 500 ML IV SCH (09:00)
--- NOTE | 2022-08-28 11:28 | Operative Note ---
DATE OF OPERATION: 07/12/2022 Amendment to operative procedure on 07/12/2022 dictated by Calvin Read M.D.: PREOPERATIVE DIAGNOSIS: Necrotizing soft tissue infection and wound of the right lower leg. POSTOPERATIVE DIAGNOSIS: Necrotizing soft tissue infection and wound of the right lower leg. WOUND DIMENSIONS POST DEBRIDEMENT: Length 14.4 cm, width 11.2 cm, depth 2.4 cm. BW:ekta Job ID: [id number] Doc ID: [id number] Calvin Read M.D. MTDD
== END 2022-07-20 14:05 | disposition home or self-care (01) | DRG 463 ==
LOC: ED 10:51 → SUR 17:15 → MEDSUR 20:04
PROVIDERS: ADMIT Internal Medicine; ATTEND Internal Medicine

== ENCOUNTER 2022-10-02 10:44 | Inpatient (IN) ==
[2022-10-02] MEDS ORDERED: VANCOMYCIN 1,000 MG in 0.9 % SODIUM CHLORIDE 250 ML IV ONE ×2 (11:34→22:00)
[2022-10-02] MEDS ORDERED: PIPERACILLIN SODIUM/TAZOBACTAM 4.5 GM in DEXTROSE 5% IN WATER 50 ML IV ONE (11:34)
--- NOTE | 2022-10-02 11:41 | Emergency Department Note ---
Wound/Laceration HIP General Chief Complaint: Wound/Laceration Stated Complaint: wound to Rt lower leg Time Seen by Provider: 10/02/22 11:34 Source: patient Mode of arrival: wheelchair History of Present Illness HPI Narrative: Narrative: Otherwise healthy 52-year-old male presents to the ED referred here for IV antibiotics and admission by his correctional program specialist. 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 He has had multiple de bridements, antibiotic courses, skin graft and follows with wound care. Despite all of this care unfortunately he has had progression of the wound that now is worsening. He saw wound care today and sent him to the ER for management. Patient is not a smoker he has no history of diabetes or known peripheral vascular disease. Denies any fevers or new pain but says worsening surrounding erythema and overall discharge from the wound. Related Data Home Medications Medication Instructions Recorded Confirmed No Known Home Meds 08/27/22 08/27/22 Allergies Allergy/AdvReac Type Severity Reaction Status Date / Time No Known Drug Allergies Allergy Verified 10/02/22 10:50 Review of Systems ROS ROS Narrative: Narrative: All systems ED: reviewed and negative except as stated. PFSH Narrative Patient History Narrative: Narrative: Medical/Surgical/Family History All Active Problems (Updated 10/02/22 @ 15:21 by Rod Waterman DO) Complicated wound infection (Acute) Leg wound, right (Acute) Anemia, normocytic normochromic (Acute) Prediabetes (Acute) Cellulitis (Acute) Abscess (Acute) Hyponatremia (Acute) Hyperglycemia (Acute) Cellulitis (Acute) Sepsis (Acute) Surgical History History of surgery 07/12/2022-Exploration, washout and debridement of necrotizing soft tissue infection of the right lower leg Social History Smoking Status: Never smoker Exam Narrative Narrative: Narrative: Constitutional: normally developed, no acute distress . Vital stable no SIRS criteria Head: Normocephalic, atraumatic, Eyes: No Icterus, ENT: Moist mucus membranes, Neck: Supple, Cardiac: Normal heart sounds, palpable lower extremity pulses Pulmonary: Normal respiratory effort. Breath sounds clear, no wheeze, rhonchi, rales, Gastrointestinal: Abdomen soft, non-distended, non-tender, Musculoskeletal: No gross deformities, exam right lower extremity has an obvious chronic wound to his mid tibia perhaps 8 or 9 inches in length. It is not down to the bone. There is surrounding erythema extending about 2 to 3 inches along the wound edges. No proximal streaking. No obvious necrosis. Wound is pink, there is some purulent appearance to the wound. Distally he is neurovascularly intact. Surrounding skin is erythematous and warm no obvious fluctuance or signs of abscess. Compartments soft in the lower leg Skin: warm, dry Neuro: Alert and oriented. Course Vital Signs Vital signs: Vital Signs Temperature 36.4 C 10/02/22 10:47 Pulse Rate 82 10/02/22 10:47 Respiratory Rate 20 10/02/22 10:47 Blood Pressure 170/106 10/02/22 10:47 Pulse Oximetry (%) 100 10/02/22 10:47 Oxygen Delivery Method 10/02/22 10:47 Temperature 36.4 C 10/02/22 10:47 Pulse Rate 83 10/02/22 15:04 Respiratory Rate 20 10/02/22 10:47 Blood Pressure 150/97 10/02/22 12:01 Pulse Oximetry (%) 100 10/02/22 15:04 Oxygen Delivery Method 10/02/22 10:47 MDM MDM Narrative Medical decision making narrative: Narrative: Patient dealing with a complex chronic wound to his right lower extremity follows with wound care he is already on oral antibiotics but the wound is becoming worsening infection. Sent over here by correctional program specialist for IV antibiotics and admission. Patient does not appear septic or toxic and has no SIRS vital signs criteria at triage. Will obtain labs, baseline x-ray for that tib-fib, patient is started on dose of vancomycin and Zosyn for broad coverage. 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 Condon, who states the wound is worsening despite extensive outpatient management including hyperbarics and multiple rounds of antibiotics thus needs admission for IV antibiotics and better inpatient wound care for failed outpatient treatment. Spoke with Dr. Stone who will admit the patient Lab Data Result diagrams: 10/02/22 11:52 10/02/22 11:52 Labs: Lab Results 10/02/22 10/02/22 Range/Units 11:52 11:52 WBC 9.7 (4.5-11.0) K/mcL RBC 4.65 (4.63-6.08) M/mcL Hgb 13.9 (13.7-17.5) g/dL Hct 43.3 (40.1-51.0) % MCV 93.1 (80.0-100.0) fL MCH 29.9 (26.0-34.0) pg MCHC 32.1 (31.0-36.0) g/dL RDW 13.2 (11.5-14.5) % Plt Count 373 (140-440) K/mcL MPV 9.1 (8.8-12.5) fL Immature Gran % (Auto) 0.3 (0.0-0.5) % Neut % (Auto) 65.6 (38.0-78.0) % Lymph % (Auto) 25.3 (15.5-49.0) % [place] % (Auto) 6.5 (1.0-12.0) % Eos % (Auto) 1.8 (0.0-7.0) % Baso % (Auto) 0.5 (0.0-2.0) % Lymph # (Auto) 2.45 (1.50-4.80) K/mcL [place] # (Auto) 0.63 (0.10-0.90) K/mcL Eos # (Auto) 0.17 (0.00-0.70) K/mcL Baso # (Auto) 0.05 (0.00-0.30) K/mcL Immature Gran # 0.03 (0.00-0.05) K/mcl Absolute Neutrophils 6.37 (1.80-8.00) K/mcL ESR 50 H (0-20) mm/hr VBG Lactic Acid 1.7 (0.5-2.0) mmol/L Sodium 136 (133-145) mmol/L Potassium 3.9 (3.3-5.1) mmol/L Chloride 101 (96-108) mmol/L Carbon Dioxide 25 (22-30) mmol/L Anion Gap 10.0 (8.0-16.0) BUN 12 (6-20) mg/dL Creatinine 0.8 (0.7-1.2) mg/dL GFR Calculation 101 Glucose 122 H (70-105) mg/dL Calcium 8.8 (8.6-10.4) mg/dL C-Reactive Protein 0.40 (0.03-0.80) mg/dL Discharge Plan Patient/Caregiver Discharge Instructions Pt seen by [employer]/PA only: No Clinical Impression: Complicated wound infection Patient Disposition: Xfer As Inpt ([facility]) Condition: Fair Follow up with: No,PCP [Primary Care Provider] - Prescriptions: No Action No Known Home Meds
--- NOTE | 2022-10-02 12:30 | XRay Report ---
HISTORY: Chronic soft tissue infection with abscess in the mid whaley FINDINGS: There is a broad-based ulceration in the skin anterior to the mid whaley. This was seen on the prior CT scan done on 07/12/22. Abscess cannot be evaluated on plain radiograph. The underlying tibia and fibula are normal without evidence of osteomyelitis. The bones are normally mineralized. No fracture or destructive bone lesion are present. IMPRESSION: Chronic soft tissue infection in the mid whaley and no evidence of underlying osteomyelitis Interpreted and Authenticated by: Benson Khanna 10/02/22
[2022-10-02 12:43] LABS: Basophils # (Auto) 0.05 K/mcL (0.00-0.30); Basophils % (Auto) 0.5 % (0.0-2.0); Eosinophils # (Auto) 0.17 K/mcL (0.00-0.70); Eosinophils % (Auto) 1.8 % (0.0-7.0); Hematocrit 43.3 % (40.1-51.0); Hemoglobin 13.9 g/dL (13.7-17.5); Lymphocytes # (Auto) 2.45 K/mcL (1.50-4.80); Lymphocytes % (Auto) 25.3 % (15.5-49.0); Mean Cell Volume 93.1 fL (80.0-100.0); Mean Corpuscular HGB Conc 32.1 g/dL (31.0-36.0); Mean Platelet Volume 9.1 fL (8.8-12.5); Monocytes # (Auto) 0.63 K/mcL (0.10-0.90); Monocytes % (Auto) 6.5 % (1.0-12.0); Neutrophils % (Auto) 65.6 % (38.0-78.0); Platelet Count 373 K/mcL (140-440); RBC 4.65 M/mcL (4.63-6.08); Red Cell Distribution Width 13.2 % (11.5-14.5); WBC 9.7 K/mcL (4.5-11.0)
[2022-10-02 12:49] LABS: Erythrocyte Sedimentation Rate 50 mm/hr (0-20)
[2022-10-02 13:06] LABS: Blood Urea Nitrogen 12 mg/dL (6-20); Calcium 8.8 mg/dL (8.6-10.4); Carbon Dioxide 25 mmol/L (22-30); Chloride 101 mmol/L (96-108); Glomerular Filtration Rate 101; Glucose 122 mg/dL (70-105)
[2022-10-02] MEDS ORDERED: VANCOMYCIN 1,500 MG in 0.9 % SODIUM CHLORIDE 500 ML IV ONE (13:42)
--- NOTE | 2022-10-02 14:00 | Internal Med History&Physical ---
HPI History of Present Illness Patient information: Note initiated : 10/02/22 at 2:00 pm Service Date, if different from initiated Date: [] Patient: Samir Montes a 52 y/o M admitted on for wound to Rt lower leg. Chief Complaint: [] History of present illness: Mr. Montes is a 52 year old M with right leg wound/nonhealing ulcer who has been managed by wound care clinic Dr. linares, Patient recently underwent split thickness skin graft. during today's office visit was noted to have foul- smelling discharge, cellulitic change, edema involving right lower extremity surgical wound. Patient has been battling the wound ever since this started as a small abscess while she was working in his backyard pond. He has been through abscess drainage/wound VAC/hyperbaric oxygen treatment and hospitalization over the last 6 months Patient was referred to the ER for evaluation. Work-up negative for osteomyelitis on imaging, white count 9.7. Patient was started antibiotic coverage, hospital service was consulted in light of worsening wound and failed outpatient treatment. At the time of my evaluation patient is alert but very anxious. He denies fever, shaking chills, dysuria, diarrhea. He is otherwise healthy and denies smoking/alcoholism/history of diabetes. He lives with his mom. 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 Social History smoking status: Never smoker MEDS/ALLERGIES Home Medications and Allergies Home Medications Medication Instructions Recorded Confirmed Type No Known Home Meds 08/27/22 10/02/22 History Allergies Allergy/AdvReac Type Severity Reaction Status Date / Time No Known Drug Allergies Allergy Verified 10/02/22 10:50 EXAM Constitutional Vitals: Temp Pulse Resp BP Pulse Ox O2 Del Method 97.6 F 87 20 150/97 98 10/02/22 10:47 10/02/22 13:38 10/02/22 10:47 10/02/22 12:01 10/02/22 13:38 10/02/22 10:47 Morbidly obese Head normocephalic Oral cavity moist No ear or nose discharge Eye no subconjunctival pallor, movement symmetrical S1-S2 occasionally irregular Nonlabored breathing Pendulous, nontender abdomen Right lower extremity covered in Jossue wrap, no cyanosis clubbing or joint swelli ng left lower extremity Skin no suspicious lesion Psych anxious but no hallucination Neuro normal higher function on limited neuro exam DATA Data Completed and Pending Labs: Labs from last 24 hours 10/02/22 10/02/22 11:52 11:52 WBC 9.7 RBC 4.65 Hgb 13.9 Hct 43.3 MCV 93.1 MCH 29.9 MCHC 32.1 RDW 13.2 Plt Count 373 MPV 9.1 Immature Gran % (Auto) 0.3 Neut % (Auto) 65.6 Lymph % (Auto) 25.3 Leake % (Auto) 6.5 Eos % (Auto) 1.8 Baso % (Auto) 0.5 Lymph # (Auto) 2.45 Leake # (Auto) 0.63 Eos # (Auto) 0.17 Baso # (Auto) 0.05 Immature Gran # 0.03 Absolute Neutrophils 6.37 ESR 50 H VBG Lactic Acid 1.7 Sodium 136 Potassium 3.9 Chloride 101 Carbon Dioxide 25 Anion Gap 10.0 BUN 12 Creatinine 0.8 GFR Calculation 101 Glucose 122 H Calcium 8.8 C-Reactive Protein 0.40 A/P Narrative A/P Narrative: Assessment 52-year-old with right middle leg surgical wound/cellulitis * Right lower extremity cellulitis/surgical nonhealing on Zosyn/vancomycin wound infection, start antibiotic coverage, failed outpatient treatment, wound care Dr. Felix consulted. Admit as inpatient. Await wound cultures(performed wound clinic) blood culture sent * Pain management on as needed opioids Plan * Inpatient admission * Antibiotic coverage * Wound care consult * Cultures Time Spent With Patient Time: Total time spent is greater than 50% in coordination of care (as documented) at patient's floor/unit and/or counseling patient:
[2022-10-02] MEDS ORDERED: POLYETHYLENE GLYCOL 3350 17 GM PACKET PO PRN (16:00)
[2022-10-02] MEDS ORDERED: BISACODYL 10 MG SUPP.RECT PR PRN (16:00)
[2022-10-02] MEDS ORDERED: MELATONIN 3 MG TABLET PO PRN (16:00)
[2022-10-02] MEDS ORDERED: POTASSIUM CHLORIDE 40 MEQ in DEXTROSE 5% IN WATER 500 ML IV PRN (16:00)
[2022-10-02] MEDS ORDERED: ACETAMINOPHEN 650 MG/65 ML BAG IV PRN (16:00)
[2022-10-02] MEDS ORDERED: HYDROcodone/APAP 5/325MG TABLET PO PRN (16:00)
[2022-10-02] MEDS ORDERED: ONDANSETRON 4 MG ODT TABLET SL PRN (16:00)
[2022-10-02] MEDS ORDERED: ACETAMINOPHEN 325 MG TABLET PO PRN (16:00)
[2022-10-02] MEDS ORDERED: ONDANSETRON 4 MG/2 ML VIAL IV PRN (16:00)
[2022-10-02] MEDS ORDERED: VANCOMYCIN PER PHARMACY IV SCH (16:00)
[2022-10-02] MEDS ORDERED: MAGNESIUM SULFATE 2 GM/50 ML BAG IV PRN (16:00)
[2022-10-02] MEDS: 0.9 % SODIUM CHLORIDE 10 ML SYRINGE IV SCH ×2 (16:48→20:41)
[2022-10-02] MEDS: PIPERACILLIN SODIUM/TAZOBACTAM 3.375 GM in DEXTROSE 5% IN WATER 50 ML IV SCH ×2 (17:55→23:24)
--- NOTE | 2022-10-02 18:05 | General Surgery Consult Note ---
HPI Date of Consult Consult Date: 10/02/22 Requesting physician: Roger Stone Primary Care Provider: PCP No Consult Narrative Patient Information: Note initiated : 10/02/22 at 5:37 pm Service Date, if different from initiated Date: [] Patient: Samir Montes 52 y/o M admitted on 10/02/22 for wound to Rt lower leg. Chief Complaint: [] Chief complaint: SEPSIS. CSSSI Right leg. Failed out patient treatment. Reason for consult: Wound care management cc:: Patient admitted via ER after wound care visit today. Noted to have deteriorated open surgical wound RIGHT leg with Sepsis. CC: Roger Stone Integumentary Integumentary: Present wounds Additional comments: Interval change in surgery wound RIGHT leg. WARMTH, foul odor, green and purulent drainage, edema, cellulitis Periwound without streaks lymphangitis. 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 Social History smoking status: Never smoker MEDS/ALLERGIES Home Medications and Allergies Home Medications Medication Instructions Recorded Confirmed Type No Known Home Meds 08/27/22 08/27/22 History Allergies Allergy/AdvReac Type Severity Reaction Status Date / Time No Known Drug Allergies Allergy Verified 10/02/22 10:50 Physical Examination Vital Signs Vital signs: Temp Pulse Resp BP Pulse Ox O2 Del Method 98.8 F 83 18 161/101 100 10/02/22 15:15 10/02/22 15:15 10/02/22 15:15 10/02/22 15:15 10/02/22 15:15 10/02/22 15:15 General physical appearance General physical exam: well developed, well nourished, no distress and moderate pain Eyes Eye exam: normal ocular movement ENT ENT exam: normal pinna, normal nares and no congestion Head Head exam IM: Present atraumatic and normocephalic Neck Neck exam: no masses and no venous distension Cardiovascular Cardiovascular exam IM: Present normal rate and rhythm Respiratory Respiratory exam: normal expansion and clear to auscultation Abdomen Abdomen: Present soft, non tender and bowel sounds Integumentary Integumentary: Present other (OPEN infected surgical wound. Warmth, foul odor, edema, green thick purulent draiange over pretibial skin grafted site. h/o surgical debridement and split thickness skin grafting on 09/05/2022) Neurologic Neurologic: Present normal coordination and other (Unremarkable neurological examination. At his baseline WNL.) Musculoskeletal Musculoskeletal: Present other (Crutches for ambulation. Open wound Stage 4 RIGHT anterior mid leg. Skin graft over exposed muscle and periosteum bone.) Psychiatric Psychiatric: Present oriented to time, oriented to person, oriented to place, speech is normal and memory intact Results Labs Result diagrams: 10/02/22 11:52 10/02/22 11:52 Labs: Abnormal lab results 10/02/22 10/02/22 Range/Units 11:52 11:52 ESR 50 H (0-20) mm/hr Glucose 122 H (70-105) mg/dL Diabetes panel 10/02/22 Range/Units 11:52 Sodium 136 (133-145) mmol/L Potassium 3.9 (3.3-5.1) mmol/L Chloride 101 (96-108) mmol/L Carbon Dioxide 25 (22-30) mmol/L BUN 12 (6-20) mg/dL Creatinine 0.8 (0.7-1.2) mg/dL Glucose 122 H (70-105) mg/dL Calcium 8.8 (8.6-10.4) mg/dL Calcium panel 10/02/22 Range/Units 11:52 Calcium 8.8 (8.6-10.4) mg/dL Pituitary panel 10/02/22 Range/Units 11:52 Sodium 136 (133-145) mmol/L Potassium 3.9 (3.3-5.1) mmol/L Chloride 101 (96-108) mmol/L Carbon Dioxide 25 (22-30) mmol/L BUN 12 (6-20) mg/dL Creatinine 0.8 (0.7-1.2) mg/dL Glucose 122 H (70-105) mg/dL Calcium 8.8 (8.6-10.4) mg/dL Adrenal panel 10/02/22 Range/Units 11:52 Sodium 136 (133-145) mmol/L Potassium 3.9 (3.3-5.1) mmol/L Chloride 101 (96-108) mmol/L Carbon Dioxide 25 (22-30) mmol/L BUN 12 (6-20) mg/dL Creatinine 0.8 (0.7-1.2) mg/dL Glucose 122 H (70-105) mg/dL Calcium 8.8 (8.6-10.4) mg/dL All other labs normal. A/P Assessment and plan (1) Cellulitis: Status: Acute Qualifiers: Laterality: right Site of cellulitis: extremity Site of cellulitis of extremity: lower extremity Qualified Code(s): L03.115 - Cellulitis of right lower limb (2) Leg wound, right: Status: Acute Plan Assessment: SEPSIS, Infected surgery wound RIGHT leg. Plan: IV antibiotics, Local wound care daily MIST therapy and GC dressings BID. Sepsis Sepsis Identified: Yes Time Zero: 12:00 Hrs, approxiamte Narrative A/P Narrative: Assessment: SEPSIS Right anterior mid leg. h/o debridement of open wound s/p Split thickness skin graft. Interval change with Foul drainage, Local warmth, edema, cellulitis Negative for crepitus. Deep tissue c/s obtained. Blood works and lab results seen Plan: Local wound care. MIST therapy IV antibiotics GC dressings BID Await tissue c/s. Plan of Treatment: Monitor progress and deescalate antibiotics per c/s report. Wound care nurse to coordinate care on Med/ / Surg floor. Following patient with Hospitalist Physician. Time Spent With Patient Time: Total time spent is greater than 50% in coordination of care (as documented) at patient's floor/unit and/or counseling patient: Total time spent with greater than 50% in coordination of care (as documented) at patient's floor/unit and/or counseling patient:: 35 - 50 minutes
[2022-10-02] MEDS: GENTAMICIN SULFATE 40 MG, CLINDAMYCIN 300 MG in SODIUM CHLORIDE IRRIG SOLUTION 500 ML IRR SCH ×2 (18:08→20:51)
[2022-10-02] MEDS: SENNOSIDES/DOCUSATE SODIUM 1 TAB TABLET PO SCH (20:40)
[2022-10-02] MEDS: DOCUSATE SODIUM 100 MG CAPSULE PO SCH (20:40)
[2022-10-03] MEDS: PIPERACILLIN SODIUM/TAZOBACTAM 3.375 GM in DEXTROSE 5% IN WATER 50 ML IV SCH ×3 (05:40→17:34)
[2022-10-03] MEDS: 0.9 % SODIUM CHLORIDE 10 ML SYRINGE IV SCH ×3 (06:15→21:45)
[2022-10-03 06:55] LABS: Basophils # (Auto) 0.05 K/mcL (0.00-0.30); Basophils % (Auto) 0.6 % (0.0-2.0); Eosinophils # (Auto) 0.21 K/mcL (0.00-0.70); Eosinophils % (Auto) 2.4 % (0.0-7.0); Hematocrit 40.6 % (40.1-51.0); Hemoglobin 13.1 g/dL (13.7-17.5); Lymphocytes # (Auto) 2.13 K/mcL (1.50-4.80); Mean Cell Volume 93.3 fL (80.0-100.0); Mean Corpuscular HGB Conc 32.3 g/dL (31.0-36.0); Mean Platelet Volume 9.2 fL (8.8-12.5); Monocytes # (Auto) 0.73 K/mcL (0.10-0.90); Monocytes % (Auto) 8.2 % (1.0-12.0); Neutrophils % (Auto) 64.5 % (38.0-78.0); Platelet Count 352 K/mcL (140-440); RBC 4.35 M/mcL (4.63-6.08); Red Cell Distribution Width 13.2 % (11.5-14.5); WBC 8.9 K/mcL (4.5-11.0)
[2022-10-03 07:20] LABS: ALT/SGPT 29 U/L (<40); AST/SGOT 23 U/L (<40); Albumin 3.5 gm/dL (3.2-5.2); Alkaline Phosphatase 65 U/L (39-117); Bilirubin,Direct < 0.2 mg/dL (0-0.3); Bilirubin,Total 0.4 mg/dL (0.1-1.0); Blood Urea Nitrogen 10 mg/dL (6-20); Calcium 8.7 mg/dL (8.6-10.4); Carbon Dioxide 24 mmol/L (22-30); Chloride 101 mmol/L (96-108); Globulin 3.4 gm/dL (2.2-3.7); Glomerular Filtration Rate 101; Glucose 129 mg/dL (70-105); Lactate Dehydrogenase 169 U/L (135-225); Triglycerides 165 mg/dL (<150)
[2022-10-03] MEDS: VANCOMYCIN 1,500 MG in 0.9 % SODIUM CHLORIDE 500 ML IV SCH ×2 (08:08→21:42)
[2022-10-03] MEDS: MULTIVIT,THER IRON,CA,FA & MIN 1 TABLET PO SCH (09:41)
[2022-10-03] MEDS: GENTAMICIN SULFATE 40 MG, CLINDAMYCIN 300 MG in SODIUM CHLORIDE IRRIG SOLUTION 500 ML IRR SCH (09:42)
[2022-10-03] MEDS: DOCUSATE SODIUM 100 MG CAPSULE PO SCH ×2 (09:43→21:38)
[2022-10-03] MEDS: ENOXAPARIN 40 MG/0.4 ML SYRINGE SQ SCH (09:43)
--- NOTE | 2022-10-03 10:23 | Internal Med Progress Note ---
SUBJECTIVE Subjective Patient information: Note initiated : 10/03/22 at 10:20 am Service Date, if different from initiated Date: [] Patient: Samir Motnes 52 y/o M admitted on 10/02/22 for wound to Rt lower leg. Chief Complaint: [] Interval history: Mr. Montes is a 52 year old M with right leg wound/nonhealing ulcer who has been managed by wound care clinic Dr. linares, Patient recently underwent split thickness skin graft. during today's office visit was noted to have foul- smelling discharge, cellulitic change, edema involving right lower extremity surgical wound. Patient has been battling the wound ever since this started as a small abscess while she was working in his backyard [place]. He has been through abscess drainage/wound VAC/hyperbaric oxygen treatment and hospitalization over the last 6 months Patient was referred to the ER for evaluation. Work-up negative for osteomyelitis on imaging, white count 9.7. Patient was started antibiotic coverage, hospital service was consulted in light of worsening wound and failed outpatient treatment. 10/03-patient seen in room. No overnight events. No concerns per staff. Ongo ing wound care/dressing changes, evaluated by Dr. Condon wound surgeon. Ongoing mistreatment/antibiotic coverage, no evidence of osteomyelitis. Continue treatment as per assessment specialist. Constitutional Vitals: Vital Signs Temp Pulse Resp BP Pulse Ox O2 Del Method 98.2 F 95 H 16 153/94 94 10/03/22 08:00 10/03/22 08:00 10/03/22 08:00 10/03/22 08:00 10/03/22 08:00 10/03/22 08:00 Period Temp Pulse Resp BP Sys/Wang Pulse Ox O2 Del Method O2 Flow Rate Last 24 Hr 97.6 F-98.8 F 79-96 16-20 115-170/76-111 94-100 Room Air-Room Air Intake and Output 10/02/22 10/03/22 10/03/22 19:59 03:59 11:59 Intake Total 100 1100 50 Output Total 475 Balance 100 625 50 Weight 129.138 kg Alert oriented Nonlabored breathing No anxiety Morbidly obese Right lower extremity wound granulation tissue noted, minimal discharge Intake & Output: Intake & Output 10/02/22 10/03/22 10/03/22 19:59 03:59 11:59 Intake Total 100 1100 50 Output Total 475 Balance 100 625 50 Weight 129.138 kg Intake: IV 100 800 50 Zosyn 3.375 gm In Dextrose 5% 50 50 50 in Water 50 ml @ 100 mls/hr IV Q6H [facility] Rx#:[id number] Zosyn 4.5 gm In Dextrose 5% in 50 Water 50 ml @ 100 mls/hr IV ONCE ONE Rx#:[id number] Vancomycin 1,000 mg In Sodium 250 Chloride 0.9% 250 ml @ 250 mls/ hr IV ONCE ONE Rx#:[id number] Vancomycin 1,500 mg In Sodium 500 Chloride 0.9% 500 ml @ 333.3 mls/hr IV ONCE ONE Rx#: [id number] Oral 300 0 Output: Void Amount 475 Other: Meal Dinner Percent of Meal Consumed 100% Feeding Ability Independent Urine Appearance Clear Urine Color Yellow OBJ DATA Labs CBC & Chem 7: 10/03/22 05:16 10/03/22 05:16 Labs: Abnormal Lab Results 10/03/22 10/03/22 10/02/22 05:16 05:16 11:52 RBC 4.35 L Hgb 13.1 L ESR Glucose 129 H 122 H Triglycerides 165 H 10/02/22 11:52 RBC Hgb ESR 50 H Glucose Triglycerides Meds: Medications Acetaminophen (Acetaminophen 325 Mg Tablet) 650 mg PO Q4-6HP PRN; Protocol PRN Reason: Per Pain Protocol/Fever > 101 Hydrocodone Bitart/Acetaminophen (Hydrocodone/Apap 5/325mg Tablet) 1 - 2 tab PO Q4HP PRN; Protocol PRN Reason: Per Pain Protocol Last Admin: 10/02/22 16:46 Dose: 1 tab Bisacodyl (Bisacodyl 10 Mg Supp.Rect) 10 mg SC Q2-3DAYS PRN PRN Reason: Constipation Docusate Sodium (Docusate Sodium 100 Mg Capsule) 100 mg PO BID [facility] Last Admin: 10/03/22 09:43 Dose: 100 mg Enoxaparin Sodium (Enoxaparin 40 Mg/0.4 Ml Syringe) 40 mg SQ DAILY [facility] Last Admin: 10/03/22 09:43 Dose: 40 mg Gentamicin Sulfate 40 mg/Clindamycin Phosphate 300 mg/Sodium Chloride 503 mls @ 0 mls/hr IRR BID [facility] Last Admin: 10/03/22 09:42 Dose: 1 mls/hr Potassium Chloride 40 meq/ (Dextrose) 520 mls @ 130 mls/hr IV UD PRN PRN Reason: K+ = or < 3.5 Acetaminophen (Ofirmev) 650 mg in 65 mls @ 130 mls/hr IV Q6HP PRN; Protocol PRN Reason: Per Pain Protocol/Fever > 101 Magnesium Sulfate (Magnesium Sulfate) 2 gm in 50 mls @ 50 mls/hr IV UD PRN PRN Reason: MG = or < 1.7 Piperacillin Sod/Tazobactam (Sod 3.375 gm/ Dextrose) 50 mls @ 100 mls/hr IV Q6H [facility]; Protocol Last Infusion: 10/03/22 06:15 Dose: Infused Vancomycin HCl 1,500 mg/ (Sodium Chloride) 500 mls @ 333.3 mls/hr IV Q12H [facility] Last Admin: 10/03/22 08:08 Dose: 333.3 mls/hr Iron Carb/Multivit/[place]/Folic Acid (Multivit,Ther Iron,Ca,Fa & Min 1 Tablet) 1 tab PO DAILY [facility] Last Admin: 10/03/22 09:41 Dose: 1 tab Melatonin (Melatonin 3 Mg Tablet) 3 mg PO HSP PRN PRN Reason: Insomnia Ondansetron HCl (Ondansetron 4 Mg Odt Tablet) 4 mg SL Q4-6HP PRN; Protocol PRN Reason: Nausea And Vomiting Ondansetron HCl (Ondansetron 4 Mg/2 Ml Vial) 4 mg IV Q4-6HP PRN; Protocol PRN Reason: Nausea And Vomiting Polyethylene Glycol (Polyethylene Glycol 3350 17 Gm Packet) 17 gm PO DAILYP PRN PRN Reason: Constipation Senna/Docusate Sodium (Sennosides/Docusate Sodium 1 Tab Tablet) 1 tab PO HS [facility] Last Admin: 10/02/22 20:40 Dose: 1 tab Sodium Chloride (0.9 % Sodium Chloride 10 Ml Syringe) 10 ml IV Q8 [facility] Last Admin: 10/03/22 06:15 Dose: 10 ml Vancomycin HCl (Vancomycin Per Pharmacy) 1 order IV UD [facility]; Protocol A/P Narrative A/P Narrative: Assessment 52-year-old with right middle leg surgical wound/cellulitis * Right lower extremity cellulitis/surgical nonhealing wound infection, clinically improving on Zosyn/vancomycin , failed outpatient treatment including skin graft/antibiotic, wound care Dr. Felix on board. Continue treatments per surgery. De-escalate antibiotic based on wound cultures Plan * Antibiotic coverage * Wound care per wound surgeon * Await wound cultures Time Spent With Patient Time: Total time spent is greater than 50% in coordination of care (as documented) at patient's floor/unit and/or counseling patient: Total time spent with greater than 50% in coordination of care (as documented) at patient's floor/unit and/or counseling patient:: 15 - 24 minutes QUALITY VTE Deep Vein Thrombosis/Pulmonary Embolism Present on Admission: No
--- NOTE | 2022-10-03 12:44 | General Surgery Progress Note ---
SUBJECTIVE Subjective Patient information: Note initiated : 10/03/22 at 12:40 pm Service Date, if different from initiated Date: [] Patient: Samir Montes 52 y/o M admitted on 10/02/22 for wound to Rt lower leg. Chief Complaint: [] Additional PMFSH (Level 3 Only): 10/03/2022 Saw patient with Daniel Buckley RN. Patient had an uneventful night. Started on IV antibiotics. Had FIRST MIST treatment last night. Constitutional Vitals: Vital Signs Temp Pulse Resp BP Pulse Ox O2 Del Method 98.2 F 95 H 16 153/94 94 10/03/22 08:00 10/03/22 08:00 10/03/22 08:00 10/03/22 08:00 10/03/22 08:00 10/03/22 08:00 Period Temp Pulse Resp BP Sys/Wang Pulse Ox O2 Del Method O2 Flow Rate Last 24 Hr 97.8 F-98.8 F 83-96 16-18 115-161/76-101 94-100 Room Air-Room Air Intake and Output 10/03/22 10/03/22 10/03/22 03:59 11:59 19:59 Intake Total 1100 50 Output Total 475 Balance 625 50 Intake & Output: Intake & Output 10/03/22 10/03/22 10/03/22 03:59 11:59 19:59 Intake Total 1100 50 Output Total 475 Balance 625 50 Intake: IV 800 50 Zosyn 3.375 gm In Dextrose 5% 50 50 in Water 50 ml @ 100 mls/hr IV Q6H [facility] Rx#:[id number] Vancomycin 1,000 mg In Sodium 250 Chloride 0.9% 250 ml @ 250 mls/ hr IV ONCE ONE Rx#:[id number] Vancomycin 1,500 mg In Sodium 500 Chloride 0.9% 500 ml @ 333.3 mls/hr IV ONCE ONE Rx#: [id number] Oral 300 0 Output: Void Amount 475 Other: Urine Appearance Clear Urine Color Yellow Exam: AVSS No changes LOY. L/E: RIGHT anterior leg wound is improving Resolving cellulitis. Deep tissue c/s obtained yesterday. Await results. A/P Narrative A/P Narrative: Assessment: Satisfactory progress. Plan of Treatment: Plan: Continue present treatment. Time Spent With Patient Time: Total time spent is greater than 50% in coordination of care (as documented) at patient's floor/unit and/or counseling patient: Total time spent with greater than 50% in coordination of care (as documented) at patient's floor/unit and/or counseling patient:: 25 - 35 minutes
[2022-10-03] MEDS: SENNOSIDES/DOCUSATE SODIUM 1 TAB TABLET PO SCH (21:38)
[2022-10-04] MEDS: PIPERACILLIN SODIUM/TAZOBACTAM 3.375 GM in DEXTROSE 5% IN WATER 50 ML IV SCH ×3 (01:01→12:08)
[2022-10-04] MEDS: GENTAMICIN SULFATE 40 MG, CLINDAMYCIN 300 MG in SODIUM CHLORIDE IRRIG SOLUTION 500 ML IRR SCH ×2 (01:12→15:04)
[2022-10-04] MEDS: 0.9 % SODIUM CHLORIDE 10 ML SYRINGE IV SCH ×2 (05:40→12:08)
[2022-10-04 08:26] LABS: Basophils # (Auto) 0.05 K/mcL (0.00-0.30); Basophils % (Auto) 0.7 % (0.0-2.0); Eosinophils # (Auto) 0.22 K/mcL (0.00-0.70); Hematocrit 40.6 % (40.1-51.0); Hemoglobin 13.5 g/dL (13.7-17.5); Lymphocytes # (Auto) 2.39 K/mcL (1.50-4.80); Lymphocytes % (Auto) 32.6 % (15.5-49.0); Mean Cell Volume 91.4 fL (80.0-100.0); Mean Corpuscular HGB Conc 33.3 g/dL (31.0-36.0); Mean Platelet Volume 9.1 fL (8.8-12.5); Monocytes # (Auto) 0.54 K/mcL (0.10-0.90); Monocytes % (Auto) 7.4 % (1.0-12.0); Platelet Count 365 K/mcL (140-440); RBC 4.44 M/mcL (4.63-6.08); Red Cell Distribution Width 13.2 % (11.5-14.5); WBC 7.3 K/mcL (4.5-11.0)
[2022-10-04 08:48] LABS: ALT/SGPT 26 U/L (<40); AST/SGOT 23 U/L (<40); Albumin 3.7 gm/dL (3.2-5.2); Albumin/Globulin Ratio 1.1 (1.0-2.3); Alkaline Phosphatase 60 U/L (39-117); Bilirubin,Direct < 0.2 mg/dL (0-0.3); Bilirubin,Total 0.5 mg/dL (0.1-1.0); Blood Urea Nitrogen 10 mg/dL (6-20); Calcium 8.9 mg/dL (8.6-10.4); Carbon Dioxide 26 mmol/L (22-30); Chloride 102 mmol/L (96-108); Globulin 3.4 gm/dL (2.2-3.7); Glomerular Filtration Rate 101; Glucose 118 mg/dL (70-105); Lactate Dehydrogenase 194 U/L (135-225); Phosphorous 3.1 mg/dL (2.5-4.5); Triglycerides 116 mg/dL (<150); Uric Acid 4.3 mg/dL (2.5-8.0)
--- NOTE | 2022-10-04 09:22 | XRay Report ---
HISTORY: Wound right lower leg, interval change FINDINGS: The lungs are clear and well expanded. Smooth pleural thickening is present laterally in both left and right lower thorax. This is probably subpleural accumulation of fat. The heart size and pulmonary vasculature are normal. There has been no change since 08/27/22. IMPRESSION: Normal exam Interpreted and Authenticated by: Benson Khanna 10/04/22
[2022-10-04] MEDS: DOCUSATE SODIUM 100 MG CAPSULE PO SCH (09:33)
[2022-10-04] MEDS: VANCOMYCIN 1,500 MG in 0.9 % SODIUM CHLORIDE 500 ML IV SCH (09:33)
[2022-10-04] MEDS: MULTIVIT,THER IRON,CA,FA & MIN 1 TABLET PO SCH (09:33)
[2022-10-04] MEDS: ENOXAPARIN 40 MG/0.4 ML SYRINGE SQ SCH (09:33)
--- NOTE | 2022-10-04 13:40 | General Surgery Progress Note ---
SUBJECTIVE Subjective Patient information: Note initiated : 10/04/22 at 1:33 pm Service Date, if different from initiated Date: [] Patient: Samir Montes 52 y/o M admitted on 10/02/22 for wound to Rt lower leg. Chief Complaint: [] Additional PMFSH (Level 3 Only): Patient seen with Daniel JACOBS. He is responding well to IV antibiotics and MIST treatments. Keen to go home today () Will come for daily IV antibiotics and MIST thrapy. Constitutional Vitals: Vital Signs Temp Pulse Resp BP Pulse Ox O2 Del Method 97.9 F 86 14 148/93 93 10/04/22 08:38 10/04/22 08:38 10/04/22 08:38 10/04/22 08:38 10/04/22 08:38 10/04/22 08:38 Period Temp Pulse Resp BP Sys/Wang Pulse Ox O2 Del Method O2 Flow Rate Last 24 Hr 97.9 F-98.6 F 85-92 14-14 137-148/80-97 93-99 Room Air-Room Air Intake and Output 10/04/22 10/04/22 10/04/22 03:59 11:59 19:59 Intake Total 550 50 Output Total 775 700 Balance -225 -650 Weight 286 lb 9.6 oz Intake & Output: Intake & Output 10/04/22 10/04/22 10/04/22 03:59 11:59 19:59 Intake Total 550 50 Output Total 775 700 Balance -225 -650 Weight 286 lb 9.6 oz Intake: IV 550 50 Zosyn 3.375 gm In Dextrose 5% 50 50 in Water 50 ml @ 100 mls/hr IV Q6H [facility] Rx#:[id number] Vancomycin 1,500 mg In Sodium 500 Chloride 0.9% 500 ml @ 333.3 mls/hr IV Q12H [facility] Rx#: [id number] Output: Void Amount 775 700 Other: Urine Appearance Clear Clear Urine Color Yellow Yellow Exam: AVSS No changes LOY. RIGHT leg wound is significantly improved. Periwound cellulitis has nearly resolved and drainage / odor is less. Final tissue cultures from 10/02/2022 are pending. A/P Narrative A/P Narrative: Assessment: Satisfactory progress. Plan of Treatment: Plan: Continue present treatment. May be d/c on ONCE a day IV antibiotics. ? Rocephin 2 grams a day & MIST treatment once daily. GCP dressings after MIST oce dily. Patient will come to hospital during this holiday period. I will see him as needed. Anticipate that we restart HBOT from Nov.[address] English Hospitalist Physician, Time Spent With Patient Time: Total time spent is greater than 50% in coordination of care (as documented) at patient's floor/unit and/or counseling patient:
--- NOTE | 2022-10-04 13:50 | Discharge Summary ---
Discharge Provider Provider IMPORTANT FOLLOW-UP INFORMATION FOR PCP: Patient information: Note initiated : 10/04/22 at 1:47 pm Service Date, if different from initiated Date: [] Patient: Samir Montes 52 y/o M admitted on 10/02/22 for wound to Rt lower leg. Chief Complaint: [] Date of admission: 10/02/22 15:15 Discharge date: 10/04/22 Primary care physician: PCP No Attending physician on admission: Roger Stone Consults: 10/02/22 12:03 Consult to Physician [CONS] Stat Comment: Consulting Provider: Roger Stone Reason For Exam: Physician to Consult 10/02/22 13:51 Consult to Physician [CONS] Stat Comment: Consulting Provider: Alfredo Condon Reason For Exam: Physician to Consult Attending physician on discharge: Chi Nikos Pui COURSE Hospital Course Hospital course: Mr. Montes is a 52 year old M with right leg wound/nonhealing ulcer who has been managed by wound care clinic Dr. linares, Patient recently underwent split thickness skin graft. during today's office visit was noted to have foul- smelling discharge, cellulitic change, edema involving right lower extremity surgical wound. Patient has been battling the wound ever since this started as a small abscess while she was working in his backyard pond. He has been through abscess drainage/wound VAC/hyperbaric oxygen treatment and hospitalization over the last 6 months Patient was referred to the ER for evaluation. Work-up negative for osteomyelitis on imaging, white count 9.7. Patient was started antibiotic coverage, hospital service was consulted in light of worsening wound and failed outpatient treatment. 10/03-patient seen in room. No overnight events. No concerns per staff. Ongoing wound care/dressing changes, evaluated by Dr. Condon wound surgeon. Ongoing mistreatment/antibiotic coverage, no evidence of osteomyelitis. Continue treatment as per it infrastructure specialist. 10/04: Discharged with outpatient IV Rocephin infusion and daily mist treatment and wound care. Discharge diagnosis: Right leg cellulitis failed outpatient antibiotics therapy Time Spent with Patient Time attestation: Total time spent providing and/or coordinating discharge services: Time spent: Greater than 30 minutes EXAM Constitutional Vitals: Temp Pulse Resp BP Pulse Ox O2 Del Method 36.6 C 86 14 148/93 93 10/04/22 08:38 10/04/22 08:38 10/04/22 08:38 10/04/22 08:38 10/04/22 08:38 10/04/22 08:38 General appearance: cooperative and no acute distress Head Head exam: Present atraumatic and normocephalic Eye Eye exam: Present EOMI and PERRL ENT ENT exam: Present mucous membranes moist, normal exam and normal external ear exam Neck Neck exam: Present normal inspection; Absent lymphadenopathy, tenderness or thyromegaly Respiratory Respiratory exam: Absent accessory muscle use, respiratory distress or wheezes Cardiovascular Cardiovascular exam: Present normal rate and rhythm; Absent JVD GI/Abdominal GI/Abdominal exam: Present normal bowel sounds and soft; Absent organomegaly or tenderness Rectal Rectal exam: Present deferred Extremities Exam Extremities exam: Present full ROM and normal capillary refill; Absent normal inspection or tenderness Additional comments: Right lower extremity wound granulation tissue noted, minimal discharge Neurological Exam Neurological exam: Present alert, CN II-XII intact and oriented X3; Absent motor sensory deficit Psychiatric Psychiatric exam: Present normal affect and normal mood; Absent anxious or depressed Skin Skin exam: Present dry and intact Discharge Data Data Completed and Pending Labs on day of discharge: Labs from last 24 hours 10/04/22 10/04/22 10/04/22 08:00 08:00 08:00 WBC 7.3 RBC 4.44 L Hgb 13.5 L Hct 40.6 MCV 91.4 MCH 30.4 MCHC 33.3 RDW 13.2 Plt Count 365 MPV 9.1 Immature Gran % (Auto) 0.3 Neut % (Auto) 56.0 Lymph % (Auto) 32.6 Fajardo % (Auto) 7.4 Eos % (Auto) 3.0 Baso % (Auto) 0.7 Lymph # (Auto) 2.39 Fajardo # (Auto) 0.54 Eos # (Auto) 0.22 Baso # (Auto) 0.05 Immature Gran # 0.02 Absolute Neutrophils 4.12 Sodium 136 Potassium 4.0 Chloride 102 Carbon Dioxide 26 Anion Gap 8.0 BUN 10 Creatinine 0.8 GFR Calculation 101 Glucose 118 H Uric Acid 4.3 Calcium 8.9 Phosphorus 3.1 Magnesium 2.1 Total Bilirubin 0.5 Direct Bilirubin < 0.2 GGT 23 AST 23 ALT 26 Alkaline Phosphatase 60 Lactate Dehydrogenase 194 Total Protein 7.1 Albumin 3.7 Globulin 3.4 Albumin/Globulin Ratio 1.1 Triglycerides 116 Vancomycin Trough 11.6 Preliminary micro results at discharge 10/02/22 11:52 Blood Culture - Preliminary Blood 10/02/22 11:45 Blood Culture - Preliminary Blood Discharge Plan Patient/Caregiver Discharge Instructions Activity: increase activity as tolerated Diet: Consistent Carbohydrate Prescriptions: New hydrocodone-acetaminophen 5-325 mg Tablet 1 - 2 tab PO Q4HP PRN (Reason: Per Pain Protocol) Qty: 20 0RF ceftriaxone in dextrose,iso-os 2 gram/50 mL piggyback 2 g IV QDAY Qty: 14 0RF Follow Up Plan Follow up with: PCP, PCP [Other] Alfredo Condon MD [Physician] - (If Samir discharges before Monday 10/08 at 8:00am, he has an HBO at the [facility] appointment at 8:00am that day. He needs to keep the appointment if able.) No,PCP [Primary Care Provider] - Patient Disposition: Home, Self-Care Plan of Treatment: Plan: Continue present treatment. May be d/c on ONCE a day IV antibiotics. ? Rocephin 2 grams a day & MIST treatment once daily. GCP dressings after MIST oce dily. Patient will come to hospital during this holiday period. I will see him as needed. Anticipate that we restart HBOT from Nov.[address] English Hospitalist Physician, Prognosis: Fair Rehab Potential: Good I certify that the patient requires SNF services: No Overall status at discharge: patient is progressing back to baseline Discharge Orders: Discharge Order (Routine); Ordered 10/04/22 Ordered By: Finn DIOP VTE Deep Vein Thrombosis/Pulmonary Embolism Present on Admission: No
== END 2022-10-04 15:30 | disposition home or self-care (01) | DRG 920 ==
LOC: ED 10:44 → MEDSUR 15:15
PROVIDERS: ADMIT Internal Medicine; ATTEND Internal Medicine